=== PATIENT | male | born 1935 | race Caucasian/White ===

== ENCOUNTER → 2017-04-02 | Outpatient (CLI) | payer OTHER ==
[~2017-04-02] MED LIST: LEVO25TA PO; NATURAL SUPPLEMENT PO; NATURAL SUPPLEMENTS; PANT1TAB48 PO
[2017-04-02 13:02] LABS: BASO % 0.7 %; BASO ABS # 0.06 K/uL (0-0.2); COMPLETE YES; EOS % 1.7 %; HEMATOCRIT 41.9 % (42-52); LYMPH % 22.1 %; LYMPH ABS # 1.99 K/uL (1.2-3.4); MEAN CORPUSCULAR HEMOGLOBIN 27.6 pg (25-34); MEAN CORPUSCULAR HGB CONC 32.5 g/dl (32-36); MEAN PLATELET VOLUME 8.3 fL (7.4-10.4); MONO % 12.5 %; PLATELET COUNT 417 K/uL (130-400); RED BLOOD COUNT 4.93 M/uL (4.7-6.1); WHITE BLOOD COUNT 9.02 K/uL (4.8-10.8)
[2017-04-02 13:19] LABS: URINE APPEARANCE CLEAR (CLEAR); URINE BILIRUBIN NEG (NEG); URINE COLOR DK YELLOW; URINE EPITHELIAL CELL AUTO 0-5 /lpf (0-5); URINE NITRITE NEG (NEG); URINE PH 5.5 (4.5-7.5); UROBILINOGEN NEG (NEG); ZZUR CULT IF INDIC CLEAN CATCH NO
[2017-04-02 13:20] LABS: MANUAL MICROSCOPIC REQUIRED? NO; REVIEW REQ? NO
[2017-04-02 14:14] LABS: BLOOD UREA NITROGEN 11 mg/dl (7-18); BUN/CREATININE RATIO 11.6 (10-20); CALCIUM 8.5 mg/dl (8.5-10.1); CARBON DIOXIDE 29 mmol/L (21-32); CHLORIDE 103 mmol/L (98-107); CREATININE 0.99 mg/dl (0.60-1.40); GLUCOSE 114 mg/dl (70-99); POTASSIUM 4.1 mmol/L (3.5-5.1); SODIUM 138 mmol/L (136-145)
[2017-04-02 14:23] LABS: PHOSPHORUS 2.7 mg/dl (2.5-4.9)
== END | disposition home or self-care (01) ==
LOC: C.LABMFLN 10:46
PROVIDERS: ATTEND Family Medicine
DX: K62.5 Hemorrhage of anus and rectum (principal); E03.9 Hypothyroidism, unspecified

== ENCOUNTER → 2017-04-04 | Outpatient (CLI) | payer OTHER ==
[2017-04-04 11:17] LABS: CHOLESTEROL/HDL RATIO 2.3
== END | disposition home or self-care (01) ==
LOC: C.LAB 09:55
PROVIDERS: ATTEND Internal Medicine Cardiovascular Disease
DX: E78.00 Pure hypercholesterolemia, unspecified (principal)

== ENCOUNTER → 2017-04-06 | Day surgery (SDC) | payer OTHER ==
[2017-04-02 13:51] VITALS: Ht 176.5 cm; Wt 75.0 kg
[~2017-04-06] VITALS: Ht 176.5 cm; Wt 75.0 kg
[~2017-04-06] MED LIST changes: +ATROPINE SULFATE 0.1 MG/ML 5ML SYR IV PRN; +EpHEDrine SULFATE INJ 50 MG/ML AMP IV PRN; +LIDOCAINE HCL 2% 2 ML VIAL (20MG/ML) ONE; -NATURAL SUPPLEMENTS; +PHENYLEPHRINE HCL INJ 10 MG/ML VIAL ONE; +PROPOFOL IV EMULSION 10 MG/ML 20 ML VIAL IV ONE
[2017-04-06 11:57] VITALS: TEMP 37.2
--- NOTE | 2017-04-06 12:30 | Endo History and Physical ---
History & Physical Date of Service: Apr 06, 2017. Chief Complaint: Rectal Bleeding Referring Physician: JULIO C ALAS History of Present Illness 81 yo CM who presents for colonoscopy secondary to rectal bleeding. Past Medical History Osteoporosis, Arthritis, Gastrointestinal Disorder, Reflux, Cancer, High Cholesterol, Syncopal Episodes, Thyroid Disease Past Surgical History Hx Cardiac Surgery: Yes (CARDIAC ABLATION) Hx Internal Defibrillator: No Hx Pacemaker: No Hx Abdominal Surgery: Yes (LATRICE) Hx of Implantable Prosthesis: No Hx Post-Op Nausea and Vomiting: No Hx Cancer Surgery: Yes (SKIN EXCISION-SEE ABOVE) Hx Thoracic Surgery: No Hx Orthopedic: No Hx Urinary Tract Surgery: No Family History None Social History Smoking Status: Former Smoker Hx Substance Use: No Hx Alcohol Use: No Allergies Coded Allergies: No Known Allergies (Unverified , 04/06/17) Current Medications Reported Home Medications Medications Dose Route/Sig Max Daily Dose Days Date Category [Natural Supplement] 1 Dose PO QAM 04/02/17 Reported Protonix (Pantoprazole) 40 Mg Tab 40 Mg PO BIDM 01/01/15 Reported Synthroid (Levothyroxine Sodium) 25 Mcg Tab 25 Mcg PO QAM 01/01/15 Reported Vital Signs Weight (Kilograms): 75 Height (Feet): 5 Height (Inches): 9.5 Date Time Temp Pulse Resp B/P (MAP) Pulse Ox O2 Delivery O2 Flow Rate FiO2 04/06/17 11:57 37.2 109 20 139/79 (99) 97 Room Air Physical Exam General Appearance: WD/WN, no apparent distress Respiratory/Chest: Auscultation: breath sounds normal Cardiovascular: Heart Auscultation: RRR Abdomen: Bowel Sounds: normal Inspection & Palpation: soft, non-distended, no tenderness, guarding & rebound Assessment and Plan Assessment: 81 yo CM who presents for colonoscopy secondary to rectal bleeding. Plan: Proceed with colonoscopy.
--- NOTE | 2017-04-06 13:03 | GI REPORT ---
Procedure Date: 04/06/2017 12:46 PM Procedure: Colonoscopy Indications: Rectal bleeding Medicines: Monitored Anesthesia Care Complications: No immediate complications. Estimated Blood Loss: Estimated blood loss: none. Procedure: Pre-Anesthesia Assessment: - Prior to the procedure, a History and Physical was performed, and patient medications and allergies were reviewed. The patient's tolerance of previous anesthesia was also reviewed. The risks and benefits of the procedure and the sedation options and risks were discussed with the patient. All questions were answered, and informed consent was obtained. Prior Anticoagulants: The patient has taken no previous anticoagulant or antiplatelet agents. ASA Grade Assessment: III - A patient with severe systemic disease. After reviewing the risks and benefits, the patient was deemed in satisfactory condition to undergo the procedure. After I obtained informed consent, the scope was passed under direct vision. Throughout the procedure, the patient's blood pressure, pulse, and oxygen saturations were monitored continuously. The scope was introduced through the anus and advanced to the terminal ileum. The colonoscopy was performed without difficulty. The patient tolerated the procedure well. The quality of the bowel preparation was good. The terminal ileum, ileocecal valve, appendiceal orifice, and rectum were photographed. Findings: Multiple small-mouthed diverticula were found in the sigmoid colon. Non-bleeding internal hemorrhoids were found during retroflexion. The hemorrhoids were small. Impression: - Diverticulosis in the sigmoid colon. - Non-bleeding internal hemorrhoids. - No specimens collected. Recommendation: - Resume previous diet. - Continue present medications. - No repeat colonoscopy due to age and the absence of advanced adenomas. - Return to primary care physician as previously scheduled. Félix Guaman, 04/06/2017 1:03:07 PM This report has been signed electronically. Note Initiated On: 04/06/2017 12:46 PM I attest to the content of the Intraoperative Record and orders documented therein, exceptions below
--- NOTE | 2017-04-06 13:08 | Discharge Instructions ---
Endoscopy Patient Instructions Date / Procedure(s) Performed Apr 06, 2017. Colonoscopy Allergy Information Coded Allergies: No Known Allergies (Unverified , 04/06/17) Discharge Date / Findings Apr 06, 2017. Diverticulosis Internal hemorrhoids Medication Instructions OK to resume all medications today as prescribed Reported Home Medications Medications Dose Route/Sig Max Daily Dose Days Date Category [Natural Supplement] 1 Dose PO QAM 04/02/17 Reported Protonix (Pantoprazole) 40 Mg Tab 40 Mg PO BIDM 01/01/15 Reported Synthroid (Levothyroxine Sodium) 25 Mcg Tab 25 Mcg PO QAM 01/01/15 Reported Provider Instructions Activity Restrictions - No exercising or heavy lifting for 24 hours. - Do not drink alcohol the day of the procedure. - Do not drive a car or operate machinery until the day after the procedure. - Do not make any important decisions or sign important papers in 24 hours after the procedure. Following Day: - Return to full activity which may include returning to work/school. Diet Start your diet with liquids and light foods (jello, soup, juice, toast). Then eat your usual diet if not nauseated. Treatment For Common After Affects For mild abdominal pain, bloating, or excessive gas: - Rest - Eat lightly - Lie on right side Follow-Up Information Follow-up with JULIO C ALAS as scheduled Anesthesia Information What You Should Know You have had a procedure that required some medicine to reduce anxiety and discomfort. This treatment is called moderate sedation. After receiving the treatment, you may be sleepy, but you will be able to breathe on your own. The effects of the treatment may last for several hours. Follow these instructions along with Activity/Diet recommendations noted above: * Do NOT do anything where dizziness or clumsiness would be dangerous. * Rest quietly at home today, then you can be up and about tomorrow. * Have a responsible person stay with you the rest of today. * You may have had an I.V. today. If so, you may take the dressing off later today. Recommendations Call your doctor if: * Trouble breathing * Continuous vomiting for more than 24 hours * Temperature above 101 degrees * Severe abdominal pain or bloating * Pain not relieved by pain medicine ordered * There is increased drainage or redness from any incision * A large amount of rectal bleeding greater than 2-3 tablespoons. (If you had a polyp/s removed or have hemorrhoids, a small amount of blood - from the rectum is to be expected.) * You have any unanswered questions or concerns. IN THE EVENT OF A SERIOUS EMERGENCY, GO TO THE NEAREST EMERGENCY ROOM Your discharge instructions were prepared by provider Félix Guaman. Patient Instructions Signature Page Abraham Cool Patient (or Guardian) Signature/Date: I have read and understand the instructions given to me by my caregivers. Caregiver/RN/Doctor Signature/Date: The above-named patient and/or guardian has received patient instructions on this date. + Original Patient Signature Page (only) stays with chart. Please make copy for patient.
--- NOTE | 2017-04-06 13:15 | Anesthesiology Progress Note ---
Anesthesia Post Op Note Date & Time Apr 06, 2017 at 13:15 Vital Signs Pain Intensity: 0 Vital Signs Past 12 Hours Date Time Temp Pulse Resp B/P (MAP) Pulse Ox O2 Delivery O2 Flow Rate FiO2 04/06/17 13:04 80 20 90/60 (70) 96 Room Air 04/06/17 11:57 37.2 109 20 139/79 (99) 97 Room Air Notes Mental Status: alert / awake / arousable, participated in evaluation Pt Amnestic to Procedure: Yes Nausea / Vomiting: adequately controlled Pain: adequately controlled Airway Patency, RR, SpO2: stable & adequate BP & HR: stable & adequate Hydration State: stable & adequate Anesthetic Complications: no major complications apparent
[2017-04-06 13:49] VITALS: BP 109/71; PULSE 84; O2SAT 97
== END | disposition home or self-care (01) ==
LOC: C.GI 11:38
PROVIDERS: ATTEND Internal Medicine
DX: K62.5 Hemorrhage of anus and rectum (principal); K57.30 Diverticulosis of large intestine without perforation or abscess without bleeding; K64.8 Other hemorrhoids; E78.00 Pure hypercholesterolemia, unspecified; K21.9 Gastro-esophageal reflux disease without esophagitis; E07.9 Disorder of thyroid, unspecified; M81.0 Age-related osteoporosis without current pathological fracture; Z87.891 Personal history of nicotine dependence; Z79.899 Other long term (current) drug therapy

== ENCOUNTER → 2017-10-06 | Outpatient (CLI) | payer OTHER ==
[~2017-10-06] MED LIST changes: -ATROPINE SULFATE 0.1 MG/ML 5ML SYR IV PRN; -EpHEDrine SULFATE INJ 50 MG/ML AMP IV PRN; -LIDOCAINE HCL 2% 2 ML VIAL (20MG/ML) ONE; +PANT1TAB3 PO; -PANT1TAB48 PO; -PHENYLEPHRINE HCL INJ 10 MG/ML VIAL ONE; -PROPOFOL IV EMULSION 10 MG/ML 20 ML VIAL IV ONE
[2017-10-06 18:27] LABS: BASO % 0.7 %; BASO ABS # 0.06 K/uL (0-0.2); COMPLETE YES; EOS % 1.7 %; HEMATOCRIT 44.4 % (42-52); IG% 0.9 %; LYMPH % 24.2 %; LYMPH ABS # 2.09 K/uL (1.2-3.4); MEAN CELL VOLUME 84.1 fL (80-100); MEAN CORPUSCULAR HEMOGLOBIN 28.2 pg (25-34); MEAN CORPUSCULAR HGB CONC 33.6 g/dl (32-36); MEAN PLATELET VOLUME 8.9 fL (7.4-10.4); MONO % 10.6 %; NEUT % 61.9 %; PLATELET COUNT 338 K/uL (130-400); RED BLOOD COUNT 5.28 M/uL (4.7-6.1); WHITE BLOOD COUNT 8.62 K/uL (4.8-10.8)
[2017-10-06 18:35] LABS: ALT/SGPT 19 U/L (12-78); AST/SGOT 19 U/L (15-37); BLOOD UREA NITROGEN 12 mg/dl (7-18); BUN/CREATININE RATIO 10.2 (10-20); CARBON DIOXIDE 27 mmol/L (21-32); CHLORIDE 103 mmol/L (98-107); CREATININE 1.17 mg/dl (0.60-1.40); GLUCOSE 90 mg/dl (70-99); POTASSIUM 4.1 mmol/L (3.5-5.1); SODIUM 136 mmol/L (136-145)
[2017-10-06 18:37] LABS: ALB/GLOB RATIO 0.7 (0.9-2); ALKALINE PHOSPHATASE 159 U/L (45-117)
== END | disposition home or self-care (01) ==
LOC: C.LABMFLN 13:24
PROVIDERS: ATTEND Family Medicine
DX: K21.9 Gastro-esophageal reflux disease without esophagitis (principal); M81.0 Age-related osteoporosis without current pathological fracture

== ENCOUNTER → 2017-10-09 | Day surgery (SDC) | payer OTHER ==
[~2017-10-09] VITALS: Ht 176.5 cm; Wt 73.2 kg
[~2017-10-09] MED LIST changes: +ACETAMINOPHEN 500 MG TAB PO ONE; +ACETAMINOPHEN 500 MG TAB PO SCH; +CHOL2000 PO; +SODIUM CHLORIDE 0.9% IV ONE; +ZOLEDRONIC ACID IV ONE
[2017-10-09 09:20] VITALS: BP 161/77; PULSE 94; TEMP 36.7; O2SAT 100
[2017-10-09 09:23] VITALS: Ht 176.5 cm; Wt 73.2 kg
--- NOTE | 2017-10-09 09:29 | NUR ---
PT STATES HE WAS NOT TOLD TO DRINK 16 OZ PRIOR TO ARRIVAL, ALTHOUGH HE STATES HE DID DRINK CLOSE TO THIS AMOUNT. BOTTLE OF WATER GIVEN TO PT AT THE TIME HE WAS GIVEN HIS TYLENOL PRETREATMENT. CALL [facility] WITHIN REACH.
== END | disposition home or self-care (01) ==
LOC: C.MTU 08:55
PROVIDERS: ATTEND Family Medicine
DX: M81.0 Age-related osteoporosis without current pathological fracture (principal)

== ENCOUNTER 2024-11-18 08:36 | Observation (INO) ==
--- NOTE | 2024-11-18 08:58 | Emergency Department Note ---
Impression & Plan LIOR (acute kidney injury), Bladder stone, Hydronephrosis, right ED Provider Note Name: ASHANTI SEQUEIRA Age: 89 Sex: Male Arrives Via: Walk-In Informant: Patient, ED Provider: Dion Herbert MD Chief Complaint: Kidney stone Impression: As per impressions above Medical Decision Making: Pleasant 89-year-old gentleman who reportedly has been having difficulty with urination the last few weeks and some noted fatigue. On examination patient looks well mildly dehydrated but otherwise in minimal distress. He had an ultrasound yesterday which showed a UVJ stone versus nearby bladder stone. CT was obtained which shows stone appears to be in the bladder right next to the UVJ. There is some mild right hydro. Reviewing previous imaging reports he did have a stone in the dependent bladder several years ago which was 5 mm at that point. Patient is in no distress breathing comfortably and otherwise looks well thus I think it is unlikely that the stone is acutely obstructing kidney however he does have a bump in his creatinine. I touched base with urology who did evaluate the patient and they agree this is unlikely truly obstructing the kidney at this point though in the setting with new onset LIOR we will plan to bring in for some hydration monitor overnight and recheck kidney function in the morning patient and are comfortable with this plan. Of note urinalysis does not show any clear evidence of infection. Triage/Nursing Notes reviewed by Me External Chart Review by me: Reviewed PCP note from 11/15/2024 discussing planned workup at that time Differential:Infection, dehydration, metabolic abnormality, hypo/hyperglycemia, electrolyte disturbance, anemia, hypoxia, cardiac sources, intracerebral event, toxicologic, neurologic, as well as other pathologies. Vital Signs: reviewed and remarkable for no significant abnormalities Interventions: Normal saline bolus 500 mL IV Labs:ED labs Reviewed by me and remarkable for acute elevation in creatinine compared to 6 months ago Imaging:CT them pelvis without contrast as per my informal interpretation shows an 8 mm stone just within the bladder lumen next to the UVJ. No free air or bowel obstruction appreciated. Confirmed by radiologist Consults:Discussed with urologist who evaluated the patient and feel no intervention surgically is necessary at this time. Reviewed with hospitalist who will bring in for hydration and monitoring. Plan: Disposition:Hospitalization. Condition: Good History of Present Illness: 89-year-old gentleman arrives for evaluation of abnormal ultrasound. Patient had an abnormal UA as an outpatient thus an ultrasound was ordered. Ultrasound revealed a 1 cm distal right ureteral stone versus bladder stone. Patient admits he has been having difficulty with urinating stating his had a weak stream and at times malodorous urine. Denies any abdominal pain, flank pain, back pain. Denies any nausea, vomiting, fevers, chills, lightheadedness, weakness. He has not had any recent leg swelling. Patient denies any specific history of kidney stones. He does have a known history of BPH. Denies any falls, trauma, injuries. Patient was recently started on doxycycline for a right toe infection however had not yet started the doxycycline. Sent to ER by PCP for evaluation due to this abnormal ultrasound. Past Medical History:See Below Home Medications:See Below Allergies:See Below Vitals:Blood Pressure: 217/105, Pulse 78, RR 20, T 37.1C, O2 96% on RA Physical Exam: GENERAL: Patient is well appearing and in no acute distress. RESPIRATORY: No dyspnea. Clear to auscultation and equal bilaterally. CARDIOVASCULAR: Regular rate and rhythm.No murmur appreciated. GASTROINTESTINAL: Abdomen soft, non-tender, no peritonitis. BACK: No midline tenderness, no CVA tenderness EXTREMITIES: Normal motion all extremities, no cyanosis, no edema. NEUROLOGIC: Alert and oriented. No focal neurologic deficits appreciated PSYCH: Appropriate GCS: 15 ED Course: Times/Reassessments: Patient stable blood pressure trended down some and he is in no distress. Dion Herbert MD Past Med/Surg History Problem List (Updated 11/18/24 @ 16:55 by Dion Herbert MD) Hydronephrosis, right (Acute) Bladder stone (Acute) LIOR (acute kidney injury) (Acute) Bladder stone LIOR (acute kidney injury) Adenomatous colon polyp BPH with obstruction/lower urinary tract symptoms Basal cell carcinoma (BCC) (Acute) Rheumatoid arthritis (Acute) Vitamin D deficiency (Chronic) Supraventricular tachycardia (Chronic) Osteoporosis, senile (Chronic) Hypothyroidism (Chronic) Hypercholesterolemia (Chronic) Esophageal stricture (Chronic) Acid reflux disease (Chronic) Surgical History History of esophagogastroduodenoscopy (EGD) S/P cholecystectomy S/P colonoscopy History of esophagogastroduodenoscopy (EGD) 11/09/20 (Dr. Farhad Rojas [place] [facility] [place] S/P colonoscopy 08/15/2021 H/O cardiac radiofrequency ablation Family History Mother Cancer Father Cirrhosis Denies family history of Ovarian cancer Prostate cancer Myocardial infarction Breast cancer Colorectal cancer Social History Smoking Status: Never smoker Tobacco Type: Cigarettes Age Started Using Tobacco: 24; Age Quit Using Tobacco: 27; packs per day: 3; Second Hand Exposure: No; Do You Dip or Chew Tobacco: No; Hx Alcohol Use: No Hx Substance Use: No Preferred Language: Ghanaian Communication Ability: Effective Visual Impairment: No Limitations Hearing Ability: Normal Machine Brush Maker Required: No Beliefs That Will Affect Care: None marital status: Current Living Situation: Spouse current occupational status: 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 How many Children do You have: 1 Feels Safe at Home: Yes Childhood Exposure to Second-Hand Smoke: No Diet: regular caffeine: Yes during the past year weight has: remained stable Dental Care, Regularly: No Physical Activity Frequency: Does not Exercise Seatbelt Use: always Sunscreen Use: No Do you think of yourself as: straight/heterosexual Gender Identity: Male Assistive Devices: Walker Allergies Allergies Allergy/AdvReac Type Severity Reaction Status Date / Time No Known Allergies Allergy Verified 11/15/24 08:45 Home Meds Home Medications Medication Instructions Recorded Confirmed calcium 600 mg (as carbonate)-vit 2 tab PO DAILY 11/11/21 11/18/24 D3 20 mcg (800 unit) chewable tablet (Caltrate plus D) food supplemt, lactose-reduced 1 ea PO DAILY 03/27/22 11/18/24 0.05 gram-1.5 kcal/mL oral liquid (Ensure Plus) tofacitinib 11 mg tablet,extended 11 mg PO UD 04/08/23 11/18/24 release 24 hr (Xeljanz XR) Vitamin D3 1 tab PO DIRECTED 11/18/24 11/18/24 denosumab 60 mg/mL subcutaneous 60 mg subcut DIRECTED 11/18/24 11/18/24 syringe (Prolia) Previous Rx's Medication Instructions Recorded alfuzosin 10 mg tablet,extended 10 mg PO DAILY #90 tabs 04/13/24 release 24 hr (Uroxatral) pantoprazole 40 mg tablet,delayed 40 mg PO DAILY #90 tabs 06/14/24 release levothyroxine 50 mcg tablet 50 mcg PO DAILY #90 tabs 08/15/24 (Synthroid) metoprolol succinate 50 mg 50 mg PO DAILY #90 tabs 09/23/24 tablet,extended release 24 hr doxycycline hyclate 100 mg tablet 100 mg PO BID #14 tabs 11/15/24 Results & Data (ED) Vital Signs Vital Signs - 24 hr 11/18/24 08:37 11/18/24 08:41 11/18/24 10:03 Temperature 37.1 C Temperature Source Skin Pulse Rate 78 63 Pulse Rate [Right] 66 Pulse Rate from SpO2 Sensor 63 Respiratory Rate 14 20 15 Respiratory Effort / Characteristics Non-Labored Spontaneous Respiratory Depth Normal Normal Respiratory Pattern Regular Blood Pressure 217/105 H 166/89 H Blood Pressure [Right Arm] 174/82 H Blood Pressure Mean 142 114 Blood Pressure Mean [Right Arm] 112 Pulse Oximetry 98 96 96 Oxygen Delivery Method Room Air Room Air Sepsis Recent Fever Within 48 Hours No Sepsis New/Unexplained Change in Mental Status N/A Sepsis Action Taken by Nursing No Action Required 11/18/24 10:36 Temperature Temperature Source Pulse Rate 71 Pulse Rate [Right] Pulse Rate from SpO2 Sensor 71 Respiratory Rate 16 Respiratory Effort / Characteristics Respiratory Depth Respiratory Pattern Blood Pressure 188/104 H Blood Pressure [Right Arm] Blood Pressure Mean 132 Blood Pressure Mean [Right Arm] Pulse Oximetry 96 Oxygen Delivery Method Sepsis Recent Fever Within 48 Hours Sepsis New/Unexplained Change in Mental Status Sepsis Action Taken by Nursing Laboratory Data 11/18/24 Unknown 11/18/24 Unknown Lab Results 11/18/24 Range/Units 08:55 Urine Color Yellow Urine Appearance Clear (Clear) Urine pH 7.5 (4.5-7.5) Ur Specific Lowber 1.012 (1.000-1.030) Urine Protein Negative (Negative) Urine Glucose (UA) Negative (Negative) Urine Ketones Negative (Negative) Urine Blood 2+ H (Negative) Urine Nitrite Negative (Negative) Urine Bilirubin Negative (Negative) Urine Urobilinogen Negative (Negative) Ur Leukocyte Esterase 2+ H (Negative) Urine WBC (Auto) 11-20 H (0-5) /hpf Urine RBC (Auto) >20 H (0-2) /hpf U Hyaline Cast (Auto) 0-2 (0-2) /lpf U Epithel Cells (Auto) 0-2 (0-2) /hpf Urine Bacteria (Auto) None Seen (None Seen) Administered Medications Sodium Chloride (Nss) 1,000 mls @ 80 mls/hr IV .[id number] ROSY Stop: 11/19/24 12:14 Last Admin: 11/18/24 12:09 Dose: 80 mls/hr Documented By: CHELSEY Discontinued Medications Sodium Chloride (Nss) 500 mls @ 999 mls/hr IV .Q31M ONE Stop: 11/18/24 10:44 Last Infusion: 11/18/24 15:08 Dose: Infused Documented By: Admin: 11/18/24 10:17 Dose: 999 mls/hr Documented By: CHELSEY Metoprolol Succinate (Metoprolol Succ 50mg Ext Rel Tab) 50 mg PO NOW STA Stop: 11/18/24 11:08 Last Admin: 11/18/24 12:07 Dose: 50 mg Documented By: CHELSEY Tamsulosin HCl (Tamsulosin Hcl 0.4 Mg Cap) 0.4 mg PO NOW ONE Stop: 11/18/24 11:27 Last Admin: 11/18/24 12:07 Dose: 0.4 mg Documented By: CHELSEY Imaging Data Radiologist's Impression: Abdomen/Pelvis CT 11/18/24 08:[address] WITHOUT CONTRAST CT DOSE: 1580.65 mGy.cm HISTORY: rt ureteral vs bladder stone, decreased urinatitio TECHNIQUE: Multiaxial CT images of the abdomen and pelvis were performed without contrast. A dose lowering technique was utilized adhering to the principles of ALARA. COMPARISON STUDY: Ultrasound of 11/17/2024 FINDINGS: ABDOMEN: Gallbladder is surgically absent. Liver, spleen, pancreas, and adrenal glands have an unremarkable non-IV contrast appearance. No hydronephrosis or calculi on the left. There is mild hydronephrosis of the right kidney. There is a 8 mm calculus within the urinary bladder lumen adjacent to the right UVJ. No other calculi seen. There are scattered atherosclerotic calcifications. No abdominal aortic aneurysm. Pelvis: Prostate is prominently enlarged. Urinary bladder is mildly distended. There is sigmoid diverticulosis. No acute diverticulitis. No bowel inflammation or obstruction. No free fluid or free air. No enlarged adenopathy. Osseous structures: There is mild lumbar degenerative disc disease. There are mild degenerative changes at the hips. IMPRESSION: Mild right hydronephrosis likely caused by 8 mm calculus within the urinary bladder adjacent to the right UVJ. Otherwise as described. ACT 112: Negative or not required by law. The above report was generated using voice recognition software. It may contain grammatical, syntax or spelling errors. Electronically signed by: James Chavez M.D. 11/18/2024 9:43 AM Discharge Plan Visit Data Chief Complaint: Kidney Stone Stated Complaint: KIDNEY STONE ED Provider: Dion Herbert Discharge Problem: LIOR (acute kidney injury), Bladder stone, Hydronephrosis, right Patient Disposition: Admitted As Inpatient Discharge Instructions Interventions: ED Discharge Assessment Last Done: 11/18/24 13:48
[2024-11-18 09:39] LABS: Basophils # (auto) 0.05 K/uL (0.00-0.20); Basophils % (auto) 0.8 %; Eosinophils # (auto) 0.09 K/uL (0.00-0.50); Eosinophils % (auto) 1.4 %; Hemoglobin 13.5 g/dl (14.0-18.0); Immature Granulocytes # (auto) 0.13 K/uL (0.01-0.20); Lymphocytes % (auto) 17.1 %; Mean Corpuscular Hemoglobin 29.9 pg (25.0-34.0); Mean Corpuscular Hgb Conc 33.8 g/dL (32.0-36.0); Mean Corpuscular Volume 88.7 fL (80.0-100.0); Mean Platelet Volume 8.5 fL (9.4-12.4); Monocytes # (auto) 0.85 K/uL (0.11-0.59); Monocytes % (auto) 13.2 %; Neutrophils # (auto) 4.21 K/uL (1.40-6.50); Neutrophils % (auto) 65.5 %; Platelet Count 252 K/uL (130-400); RDW Coefficient of Variation 12.4 % (11.5-14.5); RDW Standard Deviation 40.4 fL (36.4-46.3); Red Blood Count 4.51 M/uL (4.70-6.10); White Blood Count 6.43 K/ul (4.8-10.8)
--- NOTE | 2024-11-18 09:44 | CT Scan Report ---
ABDOMEN AND PELVIS CT WITHOUT CONTRAST CT DOSE: 1580.65 mGy.cm HISTORY: rt ureteral vs bladder stone, decreased urinatitio TECHNIQUE: Multiaxial CT images of the abdomen and pelvis were performed without contrast. A dose lo wering technique was utilized adhering to the principles of ALARA. COMPARISON STUDY: Ultrasound of 11/17/2024 FINDINGS: ABDOMEN: Gallbladder is surgically absent. Liver, spleen, pancreas, and adrenal glands have an unrema rkable non-IV contrast appearance. No hydronephrosis or calculi on the left. There is mild hydronephr osis of the right kidney. There is a 8 mm calculus within the urinary bladder lumen adjacent to the r ight UVJ. No other calculi seen. There are scattered atherosclerotic calcifications. No abdominal aor tic aneurysm. Pelvis: Prostate is prominently enlarged. Urinary bladder is mildly distended. There is sigmoid diver ticulosis. No acute diverticulitis. No bowel inflammation or obstruction. No free fluid or free air. No enlarged adenopathy. Osseous structures: There is mild lumbar degenerative disc disease. There are mild degenerative dickson es at the hips. IMPRESSION: Mild right hydronephrosis likely caused by 8 mm calculus within the urinary bladder adjac ent to the right UVJ. Otherwise as described. ACT 112: Negative or not required by law. The above report was generated using voice recognition software. It may contain grammatical, syntax o r spelling errors. Electronically signed by: aJmes Chavez M.D. 11/18/2024 9:43 AM
[2024-11-18 09:48] LABS: Appearance Urine Clear (Clear); Bacteria Urine Automated None Seen (None Seen); Bilirubin Urine Negative (Negative); Blood Urine 2+ (Negative); Cast Urine Automated 0-2 /lpf (0-2); Color Urine Yellow; Epithelial Cell Urine Auto 0-2 /hpf (0-2); Glucose Urine UA Negative (Negative); Ketones Urine Negative (Negative); Leukocyte Esterase Urine 2+ (Negative); Nitrite Urine Negative (Negative); Protein Urine Negative (Negative); RBC Urine Automated >20 /hpf (0-2); Specific Gravity Urine 1.012 (1.000-1.030); Urobilinogen Urine Negative (Negative); pH Urine 7.5 (4.5-7.5)
[2024-11-18 09:50] LABS: BUN Creatinine Ratio 9.3 (10-20); Calcium 8.9 mg/dl (8.6-10.3); Creatinine Clr Calc Pharmacy 24.4 ml/min; Potassium 4.3 mmol/L (3.5-5.1)
[2024-11-18] MEDS: SODIUM CHLORIDE 0.9% 500 ML IV ONE (10:17)
--- NOTE | 2024-11-18 10:31 | History & Physical Report ---
Date of Service November 18, 2024 Assessment & Plan (1) LIOR (acute kidney injury): (2) Bladder stone: (3) Rheumatoid arthritis: Plan Abraham is an 89-year-old male with PMH of hypothyroidism, hypercholesteremia, rheumatoid arthritis, BPH, and acid reflux. He presented on 11/18 out of concern for kidney stones. He had imaging done yesterday and was referred to the ER for a potential "blocking" stone. Patient endorses difficulty with urination, malodorous urine, and mild burning when he begins to urinate. He denies prior history of UTIs or kidney stones. While he is not having any pain at this time, he does report that he developed pressure in his lower abdomen/suprapubic region while in the ED. #LIOR BUN 19, creatinine 2.05 (baseline around 1.3) Avoid nephrotoxic agents for possible Suspect secondary to post renal obstruction (bladder stone/BPH) Is possible at this time that the stone has already passed and is in the bladder Gentle fluid resuscitation with NSS at 80mL/hr x 2 L # Bladder stone A/P CT revealed mild right hydronephrosis with an 8 mm calculus within the urinary bladder adjacent to UVJ; ?Nonobstructive Possible but that this stone formed in the bladder, and LIOR could be secondary to prostate obstruction/BPH Urology consult appreciated Supportive care Urine strainer Patient is unsure if he has been taking his alfuzosin as prescribed Hold alfuzosin Tamsulosin p.o. QAM #Mild right-sided hydronephrosis Noted; treatment as above #Cellulitis Patient was recently prescribed doxycycline on 11/15 for presumed cellulitis on his left fourth toe On physical exam, the patient does have a mild callus on the dorsal aspect of his left toe, but this is not erythematous; mildly swollen; not warm to touch Patient reports that he has not started his course of doxycycline, and reports that the toe is improved significantly over the course of the week Will defer starting new antibiotic in the setting of LIOR at this time Chronic stable conditions: #Rheumatoid arthritispatient is currently on tofacitinib; okay to take if verified through pharmacy #HTNmetoprolol #GERDpantoprazole #Hypothyroidismlevothyroxine Disposition: Obs - Admit to Med[facility] Full code Regular diet VTE PPx: SCDs History of Present Illness Chief Complaint: Bladder stone Primary Care Provider: Margot Acevedo DO Abraham is an 89-year-old male with PMH of hypothyroidism, hypercholesteremia, rheumatoid arthritis, BPH, and acid reflux. He presented on 11/18 out of concern for kidney stones. He had imaging done yesterday and was referred to the ER for a potential "blocking" stone. Patient endorses difficulty with urination, malodorous urine, and mild burning when he begins to urinate. He denies prior history of UTIs or kidney stones. While he is not having any pain at this time, he does report that he developed pressure in his lower abdomen/suprapubic region while in the ED. Patient is unsure if he recently stopped his alfuzosin. He reports that he did not take his regular morning medicine today, and manages his own medicine at home. He also reports that he takes tofacitinib for his rheumatoid, and is concerned that it is not on formulary here; he reports he did bring in from home. Additionally, patient is currently on doxycycline for cellulitis. Patient has had obstruction due to his prostate in the past. Patient denies smoking, tobacco use, recent alcohol use. He does not ambulate with a cane or walker at baseline. Patient is hypertensive at 217/105 at time of admission; vitals otherwise stable. ED course: NSS 500 mL IV ROS: Patient endorses lightheadedness, lower abdominal pressure, difficulty urinating, malodorous urine, mild burning when he starts to pee, and orange urine. Patient denies fever, chills, night-sweats, ANNE, chest pain, SOB, cough, abdominal pain, flank pain bilaterally, N/V/D, urinary incontinence, and bright red blood in the urine. Allergies Allergy/AdvReac Type Severity Reaction Status Date / Time No Known Allergies Allergy Verified 11/15/24 08:45 Home Medications Medication Instructions Recorded Confirmed Type calcium 600 mg (as carbonate)-vit 2 tab PO DAILY 11/11/21 11/18/24 History D3 20 mcg (800 unit) chewable tablet (Caltrate plus D) food supplemt, lactose-reduced 1 ea PO DAILY 03/27/22 11/18/24 History 0.05 gram-1.5 kcal/mL oral liquid (Ensure Plus) tofacitinib 11 mg tablet,extended 11 mg PO UD 04/08/23 11/18/24 History release 24 hr (Xeljanz XR) alfuzosin 10 mg tablet,extended 10 mg PO DAILY #90 tabs 04/13/24 11/18/24 Rx release 24 hr (Uroxatral) pantoprazole 40 mg tablet,delayed 40 mg PO DAILY #90 tabs 06/14/24 11/18/24 Rx release levothyroxine 50 mcg tablet 50 mcg PO DAILY #90 tabs 08/15/24 11/18/24 Rx (Synthroid) metoprolol succinate 50 mg 50 mg PO DAILY #90 tabs 09/23/24 11/18/24 Rx tablet,extended release 24 hr doxycycline hyclate 100 mg tablet 100 mg PO BID #14 tabs 11/15/24 11/18/24 Rx Vitamin D3 1 tab PO DIRECTED 11/18/24 11/18/24 History denosumab 60 mg/mL subcutaneous 60 mg subcut DIRECTED 11/18/24 11/18/24 History syringe (Prolia) Past Med/Surg History Problem List (Updated 11/18/24 @ 11:24 by Raymond Eisenberg PA-C) Bladder stone LIOR (acute kidney injury) Adenomatous colon polyp BPH with obstruction/lower urinary tract symptoms Basal cell carcinoma (BCC) (Acute) Rheumatoid arthritis (Acute) Vitamin D deficiency (Chronic) Supraventricular tachycardia (Chronic) Osteoporosis, senile (Chronic) Hypothyroidism (Chronic) Hypercholesterolemia (Chronic) Esophageal stricture (Chronic) Acid reflux disease (Chronic) Surgical History History of esophagogastroduodenoscopy (EGD) S/P cholecystectomy S/P colonoscopy History of esophagogastroduodenoscopy (EGD) S/P colonoscopy H/O cardiac radiofrequency ablation Family History Mother Cancer Father Cirrhosis Denies family history of Ovarian cancer Prostate cancer Myocardial infarction Breast cancer Colorectal cancer Social History (Updated 05/02/24 @ 09:29 by Aurelia Olvera LPN) Smoking Status: Former smoker Tobacco Type: Cigarettes Age Started Using Tobacco: 24; Age Quit Using Tobacco: 27; packs per day: 3; Second Hand Exposure: No; Do You Dip or Chew Tobacco: No; Hx Alcohol Use: No Hx Substance Use: No Preferred Language: Mongolian Visual Impairment: No Limitations Hearing Ability: Normal Beliefs That Will Affect Care: None marital status: Current Living Situation: Spouse current occupational status: 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 How many Children do You have: 1 Feels Safe at Home: Yes Childhood Exposure to Second-Hand Smoke: No Diet: regular caffeine: Yes during the past year weight has: remained stable Dental Care, Regularly: No Physical Activity Frequency: Does not Exercise Seatbelt Use: always Sunscreen Use: No Do you think of yourself as: straight/heterosexual Gender Identity: Male Assistive Devices: Cane, Denture - Upper, Denture - Lower, Glasses and Walker Review of Systems Review of Systems: See HPI above Physical Exam Physical Exam: General: no acute distress; pleasant affect; anxious; at bedside; non-toxic appearing; frail appearing; cooperative; SpO2 93% on RA HEENT: normocephalic, atraumatic; no scleral icterus; PERRLA; vision and hearing grossly intact Neck: supple; no lymphadenopathy; trachea midline Skin: warm, dry without signs of tenting; no cyanosis; no rashes, bruising, lesions, or erythema noted CV: chest wall NTP; RRR; S1/S2 normal; no murmurs/rubs/gallops; pulses intact and symmetric at radial, DP, and PT Lungs: no acute respiratory distress; symmetrical chest wall expansion; clear breath sounds across all lung nathan w/o adventitious sounds; no wheezing ABD: Soft, NTP; negative suprapubic tenderness; BS present; no rebound/guarding; no distention MSK: no tics or fasciculations; no edema noted in the LEs b/l, nonerythematous Left foot: Mild callus noted on the dorsal aspect of the left fourth toe; non- erythematous; mildly swollen; not warm to touch Neuro: A&Ox3; normal mood and affect; fluent speech; no focal deficits appreciated; sensation intact and symmetric in lower EXTR bilaterally Results & Data Results & Data Vital Signs (Past 12 Hours) Vital Signs Temp Pulse Pulse Resp BP BP Pulse Ox 11/18/24 08:41 37.1 C 78 20 217/105 H 96 11/18/24 08:37 66 14 174/82 H 98 O2 Del Method 11/18/24 08:41 Room Air 11/18/24 08:37 Room Air Laboratory Results Abnormal lab results 11/18/24 11/18/24 Range/Units 08:55 Unknown RBC 4.51 L (4.70-6.10) M/uL Hgb 13.5 L (14.0-18.0) g/dl Hct 40.0 L (42.0-52.0) % MPV 8.5 L (9.4-12.4) fL Lymph # (Auto) 1.10 L (1.20-3.40) K/uL [place] # (Auto) 0.85 H (0.11-0.59) K/uL Sodium 135 L (136-145) mmol/L Creatinine 2.05 H (0.6-1.4) mg/dl BUN/Creatinine Ratio 9.3 L (10-20) Urine Blood 2+ H (Negative) Ur Leukocyte Esterase 2+ H (Negative) Urine WBC (Auto) 11-20 H (0-5) /hpf Urine RBC (Auto) >20 H (0-2) /hpf Diagnostic Findings Abdomen/Pelvis CT 11/18/24 08:[address] WITHOUT CONTRAST CT DOSE: 1580.65 mGy.cm HISTORY: rt ureteral vs bladder stone, decreased urinatitio TECHNIQUE: Multiaxial CT images of the abdomen and pelvis were performed without contrast. A dose lowering technique was utilized adhering to the principles of ALARA. COMPARISON STUDY: Ultrasound of 11/17/2024 FINDINGS: ABDOMEN: Gallbladder is surgically absent. Liver, spleen, pancreas, and adrenal glands have an unremarkable non-IV contrast appearance. No hydronephrosis or calculi on the left. There is mild hydronephrosis of the right kidney. There is a 8 mm calculus within the urinary bladder lumen adjacent to the right UVJ. No other calculi seen. There are scattered atherosclerotic calcifications. No abdominal aortic aneurysm. Pelvis: Prostate is prominently enlarged. Urinary bladder is mildly distended. There is sigmoid diverticulosis. No acute diverticulitis. No bowel inflammation or obstruction. No free fluid or free air. No enlarged adenopathy. Osseous structures: There is mild lumbar degenerative disc disease. There are mild degenerative changes at the hips. IMPRESSION: Mild right hydronephrosis likely caused by 8 mm calculus within the urinary bladder adjacent to the right UVJ. Otherwise as described. ACT 112: Negative or not required by law. The above report was generated using voice recognition software. It may contain grammatical, syntax or spelling errors. Electronically signed by: James Chavez M.D. 11/18/2024 9:43 AM Code Status & VTE Plan Code Status Full code VTE Prophylaxis Plan VTE Prophylaxis will be ordered: Yes Supervising Physician Co-Signing Physician Notes Patient seen and examined, chart reviewed, case discussed with Raymond Eisenberg PA-C and I agree with the assessment and plan as above except as otherwise noted Labs and images reviewed "Willy "is an 89-year-old male who presents to the ER with difficulty voiding and an LIOR with baseline creatinine approximately 1.3, and creatinine recently holding at a approximately 2.092.13. Creatinine on admission 2.05. CTA/P shows right mild hydronephrosis with? 8 mm calculus at UVJ. Patient is recommended for treatment of possible obstructive LIOR with urology consult. Urology has been consulted. ?whether stone has already passed into the bladder. Recommended following clinically with repeat labs for now. Endorses dysuria, UA is not infected appearing. Agree with fluids as noted. Agree with management as noted above. PG Care Time/CCT Total # of Minutes Spent Total Time Spent with Patient: Total time spent is greater than 50% in coordination of care (as documented) at patient's floor/unit and/or counseling patient: Coding [place] [address] INT INP/OBS CARE 2/55MIN Patient Type Established Medical Decision Making Moderate Complexity Diagnoses LIOR (acute kidney injury) N17.9 Bladder stone N21.0 Rheumatoid arthritis M06.9
--- NOTE | 2024-11-18 11:37 | Urology Consultation ---
Date of Consultation November 18, 2024 Assessment & Plan (1) BPH with obstruction/lower urinary tract symptoms: (2) LIOR (acute kidney injury): (3) Bladder stone: 89-year-old male presenting for further evaluation of abnormal renal ultrasound as outpatient admitted for LIOR. Patient afebrile Labs reviewedcreatinine 2.05 (1.28 in April 2024), no leukocytosis Urinalysis on arrival is not suggestive of infection Urine culture is pendingfollow culture CT imaging reviewed personally and with Dr. Coates8 mm stone appears to be within the bladder next to the UVJ, mild right hydronephrosis, enlarged prostate noted No acute intervention needed at this time Suspect right hydronephrosis may be secondary to bladder outlet obstruction Continue with alpha-jody Monitor bladder emptying with checking post void residual/prn bladder scan Recommend placement of Amaya catheter if patient is unable to void or evidence of elevated post void residual Continue hydration, trend labs and medical management per hospital medicine service Will arrange outpatient follow-up with our service for ongoing management History of Present Illness History of Present Illness This is an 89-year-old male with past medical history including hypothyroidism, hyperlipidemia, RA, and BPH with LUTS who presented to the emergency department on 11/18/24 for evaluation of abnormal renal ultrasound. Patient had an abnormal UA and creatinine as an outpatient and renal ultrasound was performed on 11/17/2024. KENNY showed mild right-sided hydronephrosis, a 1 cm calculus noted within the dependent urinary bladder versus UVJ, and prostatomegaly. He was referred to the emergency department by his PCP for further evaluation of abnormal ultrasound. On arrival to ED, he was afebrile and hypertensive. Lab work showed creatinine of 2.05, WBC 6.3, hemoglobin 13.5. Urinalysis showed 2+ blood, 2+ LE, 11-20 WBC, >20 RBC, otherwise unremarkable. Workup in ED included CT abdomen pelvis without contrast. CT independently reviewed and showed mild right hydronephrosis, 8 mm calculus appears to be within the urinary bladder adjacent to the right UVJ, prostatomegaly. He is admitted to the hospital medicine service for LIOR. Urology is consulted for LIOR, 8mm stone in bladder, mild hydronephrosis. Patient follows with urology as outpatient for BPH with lower urinary tract symptoms. Per last urology note, he was having difficulty swallowing harris sulosin, so was switched to alfuzosin. Patient seen and examined in the emergency department. in room. He is awake and resting in bed. He reports he had abnormal UA and lab work and underwent further workup with his PCP. He notes stream has been intermittently slow and some difficulty voiding. No dysuria or hematuria. Denies constipation. He thinks he is still taking alfuzosin. Denies flank or abdominal pain. Currently reports some urinary urgency and bladder pressure. Allergies Allergy/AdvReac Type Severity Reaction Status Date / Time No Known Allergies Allergy Verified 11/15/24 08:45 Home Medications Medication Instructions Recorded Confirmed Type calcium 600 mg (as carbonate)-vit 2 tab PO DAILY 11/11/21 11/18/24 History D3 20 mcg (800 unit) chewable tablet (Caltrate plus D) food supplemt, lactose-reduced 1 ea PO DAILY 03/27/22 11/18/24 History 0.05 gram-1.5 kcal/mL oral liquid (Ensure Plus) tofacitinib 11 mg tablet,extended 11 mg PO UD 04/08/23 11/18/24 History release 24 hr (Xeljanz XR) alfuzosin 10 mg tablet,extended 10 mg PO DAILY #90 tabs 04/13/24 11/18/24 Rx release 24 hr (Uroxatral) pantoprazole 40 mg tablet,delayed 40 mg PO DAILY #90 tabs 06/14/24 11/18/24 Rx release levothyroxine 50 mcg tablet 50 mcg PO DAILY #90 tabs 08/15/24 11/18/24 Rx (Synthroid) metoprolol succinate 50 mg 50 mg PO DAILY #90 tabs 09/23/24 11/18/24 Rx tablet,extended release 24 hr doxycycline hyclate 100 mg tablet 100 mg PO BID #14 tabs 11/15/24 11/18/24 Rx Vitamin D3 1 tab PO DIRECTED 11/18/24 11/18/24 History denosumab 60 mg/mL subcutaneous 60 mg subcut DIRECTED 11/18/24 11/18/24 History syringe (Prolia) Patient History Surgical History History of esophagogastroduodenoscopy (EGD) S/P cholecystectomy S/P colonoscopy History of esophagogastroduodenoscopy (EGD) 11/09/20 (Dr. Farhad Rojas at [facility]) S/P colonoscopy 08/15/2021 H/O cardiac radiofrequency ablation Family History Mother Cancer Father Cirrhosis Denies family history of Ovarian cancer Prostate cancer Myocardial infarction Breast cancer Colorectal cancer Social History Smoking Status: Former smoker Tobacco Type: Cigarettes Age Started Using Tobacco: 24; Age Quit Using Tobacco: 27; packs per day: 3; Second Hand Exposure: No; Do You Dip or Chew Tobacco: No; Hx Alcohol Use: No Hx Substance Use: No Preferred Language: Bruneian Visual Impairment: No Limitations Hearing Ability: Normal Beliefs That Will Affect Care: None marital status: Current Living Situation: Spouse current occupational status: 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 How many Children do You have: 1 Feels Safe at Home: Yes Childhood Exposure to Second-Hand Smoke: No Diet: regular caffeine: Yes during the past year weight has: remained stable Dental Care, Regularly: No Physical Activity Frequency: Does not Exercise Seatbelt Use: always Sunscreen Use: No Do you think of yourself as: straight/heterosexual Gender Identity: Male Assistive Devices: Cane, Denture - Upper, Denture - Lower, Glasses and Walker Review of Systems Review of Systems: All systems reviewed & are unremarkable except as noted in HPI & below Physical Exam Constitutional: well developed and well nourished; no acute distress Respiratory: normal respiratory effort; no respiratory distress and no labored breathing Gastrointestinal (Abdomen): Percussion/Palpation: abdomen soft; abdomen nontender Musculoskeletal: Head/Neck/Chest: normocephalic Neurologic: moves all extremities and awake Psychiatric: Orientation: alert and oriented x 3 Results & Data Vital Signs (Past 12 Hours) Vital Signs Temp Pulse Pulse Resp BP BP Pulse Ox 11/18/24 10:36 71 16 188/104 H 96 11/18/24 10:03 63 15 166/89 H 96 11/18/24 08:41 37.1 C 78 20 217/105 H 96 11/18/24 08:37 66 14 174/82 H 98 O2 Del Method 11/18/24 10:36 11/18/24 10:03 11/18/24 08:41 Room Air 11/18/24 08:37 Room Air PG Care Time/CCT Total # of Minutes Spent Total Time Spent with Patient: Total time spent is greater than 50% in coordination of care (as documented) at patient's floor/unit and/or counseling patient: Coding Level of Care Code 39309 INT INP/OBS CARE 2/55MIN Diagnoses BPH with obstruction/lower urinary tract symptoms N40.1; N13.8 LIOR (acute kidney injury) N17.9 Bladder stone N21.0
[2024-11-18] MEDS: TAMSULOSIN HCL 0.4 MG CAP PO ONE (12:07)
[2024-11-18] MEDS: METOPROLOL SUCC 50MG EXT REL TAB PO STA (12:07)
[2024-11-18] MEDS: SODIUM CHLORIDE 0.9% 1,000 ML IV SCH (12:09)
[2024-11-18] MEDS ORDERED: ACETAMINOPHEN 325 MG TAB PO PRN (13:48)
[2024-11-18] MEDS ORDERED: MELATONIN 3 MG TAB PO PRN (13:48)
[2024-11-18] MEDS ORDERED: TAMSULOSIN HCL 0.4 MG CAP PO SCH (21:00)
[2024-11-19] MEDS: LEVOTHYROXINE SODIUM 50 MCG TABLET PO SCH (05:16)
--- NOTE | 2024-11-19 07:21 | Electrocardiogram Report ---
Test Reason : Blood Pressure : */* mmHG Vent. 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 rate has decreased by 49 bpm Confirmed by Onur Montero ([id number]) on 11/19/2024 7:21:19 AM Referred By: REFERRED SELF Confirmed By: Onur Montero
[2024-11-19 07:33] LABS: BUN Creatinine Ratio 10.6 (10-20); Calcium 8.2 mg/dl (8.6-10.3); Creatinine Clr Calc Pharmacy 27.8 ml/min; Potassium 4.2 mmol/L (3.5-5.1)
[2024-11-19] MEDS: TAMSULOSIN HCL 0.4 MG CAP PO SCH (08:05)
[2024-11-19] MEDS: METOPROLOL SUCC 50MG EXT REL TAB PO SCH (08:05)
[2024-11-19] MEDS: PANTOprazole 40 MG TAB PO SCH (08:05)
[2024-11-19] MEDS ORDERED: NON-FORMULARY MEDICATION PO SCH (09:00)
[2024-11-19 20:06] VITALS: RESP 18
[2024-11-20 07:35] VITALS: BP 165/89; PULSE 66; TEMP 97.9; O2SAT 98
[2024-11-20 10:21] LABS: BUN Creatinine Ratio 10.8 (10-20); Calcium 8.4 mg/dl (8.6-10.3); Potassium 3.9 mmol/L (3.5-5.1)
[2024-11-20 11:24] LABS: Appearance Urine Clear (Clear); Bacteria Urine Automated None Seen (None Seen); Bilirubin Urine Negative (Negative); Blood Urine Trace (Negative); Cast Urine Automated 0-2 /lpf (0-2); Color Urine Yellow; Epithelial Cell Urine Auto 0-2 /hpf (0-2); Glucose Urine UA Negative (Negative); Ketones Urine Negative (Negative); Leukocyte Esterase Urine 1+ (Negative); Nitrite Urine Negative (Negative); Protein Urine Negative (Negative); Specific Gravity Urine 1.007 (1.000-1.030); Urobilinogen Urine Negative (Negative); WBC Urine Automated 0-5 /hpf (0-5); pH Urine 7.5 (4.5-7.5)
--- NOTE | 2024-11-20 11:35 | Discharge Summary ---
Discharge Summary Date of Service November 20, 2024 Principal Dx & Hospital Course #1 = Principal Diagnosis (1) LIOR (acute kidney injury): (2) Bladder stone: (3) Rheumatoid arthritis: Jesus Alberto Rosario is a 9-year-old male with past medical history hypothyroidism, hyperlipidemia, RA, BPH, acid reflux. Presented 11/18 for concern of obstructive renal stones. CT showed an 8 mm UVJ stone with mild right hydro. Pain relieved following admission and it was suspected that the stone had dropped into the bladder and was no longer obstructive. Creatinine was initially elevated consistent with obstructive uropathy this gradually downtrended x 2 days and was near but not yet quite at baseline by time of discharge. Patient had had intermittent mild dysuria with mild hematuria, but repeat UA prior to discharge did not show any evidence of UTI. He was discharged to continue for alfuzosin, and Azo for symptomatic relief with return precautions for UTI/pyelosymptoms. Urologic intervention was not recommended at time of admission, urology was consulted and recommended outpatient follow-up which was being scheduled. Patient did not show any signs of urinary retention day of discharge. Prior to admission to the hospital patient had been treated for a possible cellulitis with doxycycline, there was no warmth erythema or tenderness of the toe at time of hospitalization patient had not yet picked up his doxycycline as prescribed over a week ago. Inconsistent with cellulitis and antibiotics were deferred for this Do as outpatient Repeat BMP by PCP within 1 week to ensure renal function remained stable/normalizes Follow-up outpatient with urology No antibiotics were prescribed at discharge Admission HPI Per Admitting Provider Abraham is an 89-year-old male with PMH of hypothyroidism, hypercholesteremia, rheumatoid arthritis, BPH, and acid reflux. He presented on 11/18 out of concern for kidney stones. He had imaging done yesterday and was referred to the ER for a potential "blocking" stone. Patient endorses difficulty with urination, malodorous urine, and mild burning when he begins to urinate. He denies prior history of UTIs or kidney stones. While he is not having any pain at this time, he does report that he developed pressure in his lower abdomen/suprapubic region while in the ED. Patient is unsure if he recently stopped his alfuzosin. He reports that he did not take his regular morning medicine today, and manages his own medicine at home. He also reports that he takes tofacitinib for his rheumatoid, and is concerned that it is not on formulary here; he reports he did bring in from home. Additionally, patient is currently on doxycycline for cellulitis. Patient has had obstruction due to his prostate in the past. Patient denies smoking, tobacco use, recent alcohol use. He does not ambulate with a cane or walker at baseline. Patient is hypertensive at 217/105 at time of admission; vitals otherwise stable. ED course: NSS 500 mL IV ROS: Patient endorses lightheadedness, lower abdominal pressure, difficulty urinating, malodorous urine, mild burning when he starts to pee, and orange urine. Patient denies fever, chills, night-sweats, ANNE, chest pain, SOB, cough, abdominal pain, flank pain bilaterally, N/V/D, urinary incontinence, and bright red blood in the urine. Discharge Exam General: A&Ox3. NAD. Cooperative. HEENT: Atraumatic, normocephalic. Pulm: CTAB A&P. -wheezes, -rales, -rhonchi. Symmetrical chest rise. No increased work of breathing. No respiratory distress. Cardiac: RRR, -mrg. Radial pulses intact and symmetrical. Abdominal: Nontender, nondistended, soft. BS present. Discharge Plan Discharge Items Patient Disposition: Home - Self-Care Reason For Visit: BLADDER STONE, DIFFICULTY URINATING Discharge Diagnosis: Bladder stone Activity: Resume your previous activity Non-emergency contact: Primary Care Provider and Urologist Call non-emergency contact if: you have any medication questions and your symptoms worsen Follow-up/Referrals: Connor Coates MD [Physician] - Margot Acevedo DO [Primary Care Provider] - Diet: Regular Addtl Attending Provider Instructions: You were seen in the hospital for concern for a bladder stone with obstruction.Your CAT scan showed a obstructive stone near the utero vesicular junction, an area where the connecting tube from the kidney connects and can become blocked. Your kidney function was elevated however on reassessment your kidney function improved over 2 days and your stone was felt to have passed into the bladder. Urology was consulted. No urologic intervention was recommended at time of hospitalization. Urology did recommend outpatient follow-up. This is being scheduled as noted above. Of recheck of your kidney numbers performed by your primary care physician within 1 week. Follow-up with your PCP is being scheduled as noted above. Your kidney numbers (creatinine) were not completely at baseline, but progressively improved over 2 days and were near baseline at time of discharge. Her normal kidney numbers are around 1.31.4. These peaked at 2.07 during admission, and progressively improved to 1.67 by time of discharge Your urine did not show any evidence of a UTI. He did have you did have some mild burning with urination and some irritation with a scant amount of blood in the urine likely related to your bladder stone. You are provided with a prescription for Pyridium can treat this discomfort. If you have worsening discomfort, difficulty voiding, fevers chills or sweats, abdominal pain, or other new or concerning symptoms please seek medical reevaluation. If you develop any new or worsening symptoms including fever, chills, sweats, chest pain, chest pressure, difficulty breathing, uncontrolled nausea/vomiting, rash, wheezing, passing out or nearly passing out, bleeding, black/bloody bowel movements, or other new or concerning symptoms please call your primary care physician, or call 911 for re-evaluation in the emergency department if you are very concerned. Pending Studies at Discharge: No Stand-Alone Forms: My [employer], Smoking Cessation Medications and DC Order Prescriptions: New phenazopyridine [Pyridium] 100 mg tablet 100 mg PO TID PRN (Reason: pain) Qty: 14 0RF Continued pantoprazole 40 mg tablet,delayed release (DR/EC) 40 mg PO DAILY Qty: 90 3RF levothyroxine [Synthroid] 50 mcg tablet 50 mcg PO DAILY Qty: 90 3RF metoprolol succinate 50 mg tablet extended release 24 hr 50 mg PO DAILY Qty: 90 3RF alfuzosin [Uroxatral] 10 mg tablet extended release 24 hr 10 mg PO DAILY Qty: 90 3RF Rx Instructions: administer after the same meal each day Caltrate 600 plus D 600 mg-20 mcg (800 unit) tablet,chewable 2 tab PO DAILY Ensure Plus 0.05-1.5 gram-kcal/mL liquid 1 ea PO DAILY Xeljanz XR 11 mg tablet extended release 24 hr 11 mg PO UD Rx Instructions: 11 mg po daily. No fill history available Prolia 60 mg/mL syringe 60 mg subcut DIRECTED Rx Instructions: last filled per history 06/07/24 180 day supply Vitamin D3 1 tab PO DIRECTED Rx Instructions: otc unknown dose Discontinued doxycycline hyclate 100 mg tablet 100 mg PO BID Qty: 14 0RF Discharge Orders: Discharge Order (Routine); Ordered 11/20/24 Ordered By: Dorian Mason/Other Patient Handouts: Understanding Kidney Stones Admission Data Admit Date/Time: 11/18/24 11:09 Attending Provider: Dorian De La Fuente Admit Provider: Dorian De La Fuente Primary Care Provider: Margot Acevedo Other Providers: Dorian De La Fuente; Connor Coates Other Interventions: Discharge Summary Assessment (RN) Last Done: 11/20/24 11:19 Hospital Stay Data Consultations 11/18/24 10:30 Consult Urology Routine ED Decision to Admit Stat Diagnostic Imagining Performed 11/18/24 08:55 CT abd pelvis wo con Stat Pending Results Patient Have Any Pending Studies at Discharge: No Discharge Instructions Given to Patient (Per Discharging Provider) You were seen in the hospital for concern for a bladder stone with obstruction.Your CAT scan showed a obstructive stone near the utero vesicular junction, an area where the connecting tube from the kidney connects and can become blocked. Your kidney function was elevated however on reassessment your kidney function improved over 2 days and your stone was felt to have passed into the bladder. Urology was consulted. No urologic intervention was recommended at time of hospitalization. Urology did recommend outpatient follow-up. This is being scheduled as noted above. Of recheck of your kidney numbers performed by your primary care physician within 1 week. Follow-up with your PCP is being scheduled as noted above. Your kidney numbers (creatinine) were not completely at baseline, but progressively improved over 2 days and were near baseline at time of discharge. Her normal kidney numbers are around 1.31.4. These peaked at 2.07 during admission, and progressively improved to 1.67 by time of discharge Your urine did not show any evidence of a UTI. He did have you did have some mild burning with urination and some irritation with a scant amount of blood in the urine likely related to your bladder stone. You are provided with a prescription for Pyridium can treat this discomfort. If you have worsening discomfort, difficulty voiding, fevers chills or sweats, abdominal pain, or other new or concerning symptoms please seek medical reevaluation. If you develop any new or worsening symptoms including fever, chills, sweats, chest pain, chest pressure, difficulty breathing, uncontrolled nausea/vomiting, rash, wheezing, passing out or nearly passing out, bleeding, black/bloody bowel movements, or other new or concerning symptoms please call your primary care physician, or call 911 for re-evaluation in the emergency department if you are very concerned. Total Time Total Time Spent Total Time Spent (In Minutes): Time spend day of discharge 35 minutes including direct patient care, documentation, review of labs and images, and coordination of care. Coding Level of Care Code 30324 INP/OBS DISCH >30 MIN Diagnoses LIOR (acute kidney injury) N17.9 Bladder stone N21.0 Rheumatoid arthritis M06.9
== END 2024-11-20 13:39 | disposition home or self-care (01) ==
LOC: EDINP 08:36 → ED 08:36 → 3W 13:48

== ENCOUNTER 2025-01-19 08:33 | Observation (INO) ==
--- NOTE | 2025-01-03 10:26 | Anesthesiology Consultation ---
Date of Service January 03, 2025 Assessment & Plan (1) Encounter for pre-operative examination: Chart Review Chart Review: Acceptable Risk for Surgery and Patient NOT seen in Pre Admission Testing -BMP ordered for AM of surgery (12/26/24 creat 2.15 and eGFR 28.71 therefore NSS ordered; if creat improves, consider new order for LR) Infectious Disease screening: Per PAT nursing assessment on 01/03/25, No known infectious disease contacts in past 10 days or current infectious disease symptoms. No recent travel outside the country. History Surgery Operation Date: 01/12/25 12:50 Proposed Procedures p Cystoscopy, Ureteronephroscopy, Retrograde Pyelogram, with Possible Ureteral Dilation, Laser Destruction or Extraction of the Stone, Insertion or Exchange of Stent Catheter - - Faustino Rahman DO Height/Weight Height: 5 ft 9.5 in Weight: 80.739 kg Allergies Allergy/AdvReac Type Severity Reaction Status Date / Time No Known Allergies Allergy Verified 01/03/25 07:32 Medications Home Medications Medication Instructions Recorded Confirmed Last Taken food supplemt, lactose-reduced 1 ea PO DAILY 03/27/22 01/03/25 Unknown 0.05 gram-1.5 kcal/mL oral liquid (Ensure Plus) tofacitinib 11 mg tablet,extended 11 mg PO UD 04/08/23 01/03/25 Unknown release 24 hr (Xeljanz XR) alfuzosin 10 mg tablet,extended 10 mg PO DAILY #90 tabs 04/13/24 01/03/25 Unknown release 24 hr (Uroxatral) pantoprazole 40 mg tablet,delayed 40 mg PO DAILY #90 tabs 06/14/24 01/03/25 Unknown release levothyroxine 50 mcg tablet 50 mcg PO DAILY #90 tabs 08/15/24 01/03/25 Unknown (Synthroid) metoprolol succinate 50 mg 50 mg PO DAILY #90 tabs 09/23/24 01/03/25 Unknown tablet,extended release 24 hr denosumab 60 mg/mL subcutaneous 60 mg subcut DIRECTED 11/18/24 01/03/25 Unknown syringe (Prolia) phenazopyridine 100 mg tablet 100 mg PO TID PRN pain 6 doses #14 11/20/24 01/03/25 Unknown (Pyridium) tabs calcium carbonate 200 mg calcium 2 tab PO QAM 01/03/25 01/03/25 Unknown (500 mg)-vitamin D3 400 unit tablet Past Medical History Medical History (Updated 01/03/25 @ 10:37 by Debora Loaiza PA-C) Acid reflux disease Acute kidney injury superimposed on CKD creat remains elevated 2/ bladder stone Bladder stone BPH (benign prostatic hyperplasia) CKD stage 3a, GFR 45-59 ml/min follows with [facility]; baseline creat 1.3-1.4mg/dl History of anesthesia reaction states hx of issues w/ hypotension History of colon polyps History of esophageal stricture Hx of basal cell carcinoma Hx of hypercholesterolemia Hx of influenza 12/02/24; tx with tamiflu Hx of supraventricular tachycardia AVNRT s/p RF ablation 2006; follows w/ Dr Mendez; no recurrence since ablation Hydronephrosis, right HX Hypothyroidism Near syncope 12/02/24- was positive for flu, no issues since Osteoporosis Rheumatoid arthritis Past Family History Family History Mother Cancer Father Cirrhosis Denies family history of Ovarian cancer Prostate cancer Myocardial infarction Breast cancer Colorectal cancer Past Surgical History Surgical History (Updated 01/03/25 @ 10:34 by Debora Loaiza PA-C) H/O cardiac radiofrequency ablation 2006 RF ablation for AVNRT History of esophagogastroduodenoscopy (EGD) Hx of basal cell carcinoma excision multiple sites S/P cholecystectomy S/P colonoscopy 08/15/2021 Social History Smoking Status: Former smoker Do You Dip or Chew Tobacco: No Smoking End Date: quit in his 20's Hx Alcohol Use: No Hx Substance Use: No substance use type: does not use Lab Results Anesthesia Preop Results Results Anesthesia Widget: WBC 7.34 K/ul (4.8-10.8) 12/26/24 Hgb 12.5 g/dl (14.0-18.0) L 12/26/24 Hct 38.1 % (42.0-52.0) L 12/26/24 Plt 264 K/uL (130-400) 12/26/24 Na 134 mmol/L (136-145) L 12/26/24 K 4.6 mmol/L (3.5-5.1) 12/26/24 Cl 101 mmol/L (98-107) 12/26/24 CO2 29 mmol/L (21-32) 12/26/24 BUN 21 mg/dl (6-23) 12/26/24 Creat 2.15 mg/dl (0.6-1.4) H 12/26/24 Glucose Level 93 mg/dl (70-99(Fasting)) 12/26/24 TSH 3.815 uIu/ml (0.300-4.500) 11/15/24 Urine Color Yellow 12/15/24 Urine Appearance Clear (Clear) 12/15/24 Urine pH 6.5 (4.5-7.5) 12/15/24 Urine Specific [place] 1.010 (1.000-1.030) 12/15/24 Urine Protein Negative (Negative) 12/15/24 Urine Glucose (UA) Negative (Negative) 12/15/24 Urine Ketones Negative (Negative) 12/15/24 Urine Blood Negative (Negative) 12/15/24 Urine Nitrite Negative (Negative) 12/15/24 Urine Bilirubin Negative (Negative) 12/15/24 Urine Urobilinogen Negative (Negative) 12/15/24 Urine Leukocyte Esterase 2+ (Negative) H 12/15/24 Urine WBC (Auto) 0-5 /hpf (0-5) 12/15/24 Urine RBC (Auto) 0-2 /hpf (0-2) 12/15/24 Urine Hyaline Casts (Auto) 0-2 /lpf (0-2) 12/15/24 Urine Epithelial Cells (Auto) 0-2 /hpf (0-2) 12/15/24 Urine Bacteria (Auto) None Seen (None Seen) 12/15/24 Testing Laboratory Results 12/26/24: urine culture: more than three types of organisms present, all low counts mixed probable skin scott. Electrocardiogram Date: 11/18/24 SR with 1st degree AVB. Rate: 63bpm Possible old anterior infarct (cited on/before 02/04/2020) Chest X-Ray Date: 12/02/24 Findings: + NAD lungs hyperinflated with changes of COPD Mild CM Other Testing Abd/Pelvis CT 12/26/24: 1. Right moderate hydronephrosis and hydroureter due to distal ureteric intraluminal soft tissue lesion surrounded with fat stranding, more prominent compared to last CT possibility of being neoplastic lesion, TCC, can't be ruled out, advised contrast enhanced CT study (renal protocol) and histopathologic correlation. 2. A small right hemorrhagic cortical renal cyst, no interval changes. 3. Mobile rounded urinary bladder stone, stable in size with change position at left base. 4. Diffuse irregularity of the urinary bladder wall thickening with diverticular formation, suggesting chronic bladder outlet obstruction. No interval changes. 5. Enlarged prostate with coarse parenchymal calcification indenting the base of the urinary bladder. No interval changes.
[~2025-01-19 08:33] MED LIST changes: -ACETAMINOPHEN 500 MG TAB PO ONE; -ACETAMINOPHEN 500 MG TAB PO SCH; -CHOL2000 PO; -LEVO25TA PO; -NATURAL SUPPLEMENT PO; -PANT1TAB3 PO; +PROPOFOL IV EMULSION 10 MG/ML 20 ML VIAL IV ONE; -SODIUM CHLORIDE 0.9% IV ONE; -ZOLEDRONIC ACID IV ONE; +fentaNYL citrate PF 100 MCG/2 ML VIAL ONE
--- NOTE | 2025-01-19 09:35 | History & Physical Bridge Note ---
Date of Service January 19, 2025 History & Physical Bridge Note I have examined the patient, reviewed the History & Physical and in the interval since the performance of the History & Physical I have noted the following changes of clinical significance: no changes noted
[2025-01-19] MEDS ORDERED: ATROPINE SULFATE 0.1 MG/ML 10ML SYR IV PRN (09:36)
[2025-01-19] MEDS ORDERED: PROMETHAZINE HCL 6.25 MG in SODIUM CHLORIDE 0.9% 50 ML IV PRN (09:36)
[2025-01-19] MEDS ORDERED: ePHEDrine sulfate 50 MG/ML AMP IV PRN (09:36)
[2025-01-19 09:51] LABS: BUN Creatinine Ratio 11.6 (10-20); Calcium 9.4 mg/dl (8.6-10.3); Creatinine Clr Calc Pharmacy 24.6 ml/min; Potassium 4.5 mmol/L (3.5-5.1)
[2025-01-19] MEDS: SODIUM CHLORIDE 0.9% 1,000 ML IV SCH (09:59)
[2025-01-19] MEDS: ceFAZolin 2000MG 2,000 MG/15 ML SYR IV SCH ×2 (10:24→18:10)
[2025-01-19] MEDS ORDERED: ePHEDrine sulfate 50 MG/5 ML SYR ONE (10:42)
[2025-01-19] MEDS ORDERED: ONDANSETRON INJ 2 MG/ML 2 ML VIAL ONE (11:06)
--- NOTE | 2025-01-19 12:08 | Operative Report ---
PG Post Operative Report Pre & Post Diagnosis Operation Date: 01/19/25 10:25 Pre-Op Diagnosis: Unspecified Hydronephrosis, Urothelial Lesion Post-Op Diagnosis: Unspecified Hydronephrosis, Urothelial Lesion I identified the patient and participated in the time-out.: Yes Procedure Operation Date: 01/19/25 10:25 Actual Procedures Cystoscopy, with Bilateral Retrograde Pyelogram,Bilateral Ureteral Stent Insertion, Laser Cystolitholapaxy, and urethral dilation Right Kidney Selective Cytology, Right Ureteral Dilation, Right Ureteroscopy, Ureteral Tumor Biopsy, Right Ureteral Tumor Ablation, Right Ureteral tumor laser excision - Faustino Rahman, Surgeon Faustino Rahman, II, DO Box Packer None Estimated Blood Loss 10 Findings Consistent with Post-Op Diagnosis 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 Large Bladder Stone Approx 2.8 cm in size destroyed to dust and small fragments and larger fragments removed. Mild hydronephrosis of the left Severe prostate enlargement with large median Lobe. Stricture of Right UO. Stricture of distal Right ureter. 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 Significant hydroureter and hydronephrosis on right. Large debris in right renal pelvis. Specimens Stone Fragments - Bladder Urine Cytology Right kidney Ureteral Tumor Biopsy Drains 20 Fr Coude Catheter 7 Fr x 26 cm Right Stent 4.8 Fr x 26 cm Left Stent Anesthesia Type General Complications none Disposition Disposition: Recovery Room Indications Patient with bothersome stones within bladder and hydronephrosis with possible ureteral tumor. Risks and benefits discussed at length. Description of Procedure Patient was consented and brought back to the operating room. Patient was placed under anesthesia in the supine position and moved to the dorsal lithotomy position. Patient was prepped and draped in the regular sterile fashion. A time out was completed identifying the correct patient and procedure. A 30degree Cystoscope was placed into the bladder and the entire bladder was examined. The distal meatus and distal urethra were found to be narrowed with stricture. The strictures were dilated. The scope was then advanced. The prostate was found to be severely enlarged with a large median lobe causing significant obstruction and large varicosities. The UO's were identified. A large stone was discovered in a diverticulum off to the left side. The stone was able to be flushed out of the diverticulum and into the base of the bladder. The stone to be more. A bladder stone to be destroyed small pieces. Pieces will be flushed out removed and sent for analysis. The UO was cannulized with a catheter and a retrograde pyelogram was completed. This was completed on the left and the right. A wire was then placed. The left had a mild hydronephrosis appearance likely due to incomplete emptying from severe obstruction with multiple diverticulum throughout the bladder. There was significant J hooking of the ureter. A 4.8 [place]er double-J ureteral stent was then placed and confirmed to be in good position on the left under fluoroscopy. Due to current findings on the imaging on the right side prior to completing the retrograde pyelogram a 5 [place]er open-ended catheter was placed into the ureter. The distal UO had to be dilated in order to advance the 5 [place]er catheter. With manipulation it was also able to bypassed an area in the distal ureter that was hard to navigate and a third area in the mid ureter was also difficult to navigate around the wire was utilized to advance the 5 [place]er open-ended catheter into the midportion of the ureter. Aspiration and selective cytology was then completed on the right side at the section of the mid ureter a approximately 10 cc of urine was able to be aspirated and sent for analysis. At this point a retrograde pyelogram was completed on the right side there was significant hydroureter there was significant stricture of the distal ureter including the UO. There was significant hydroureter throughout the mid and proximal ureter and a irregular filling defect in the mid ureter concerning for possible tumor. The distal ureter and UO was able to be dilated. A flexible ureteroscope was taken over a second wire into the ureter. The areas of dilation have been assessed and there was no major injury. A tumor was encountered in the mid ureter. At this point, A ureteral access sheath and second safety wire was placed. The flexible ureteroscope was taken into the ureter. The areas of dilation of the distal ureter were examined. There was no major injury or other areas concern. A tumor was once again evaluated in the mid ureter. Papillary appearing lesions were also found proximal to this but a large nodular tumor was noted in the midportion of the ureter causing considerable obstruction. The scope was able to advance around this and enter into the proximal ureter and advanced to the renal pelvis The entire ureter and renal pelvis were examined. A large amount of debris was noted in the proximal ureter and renal pelvis. Visualization was extremely limited. No obvious mass or tumor was discovered along the urothelial lining. The scope was slowly removed back down to the mid ureter where the large tumor and multiple papillary lesions were once again discovered. The base of the nodular tumor did appear to have a stalk however it was wide base. Soft tissue settings were then utilized with the laser. The laser fiber was once again selected. The papillary appearing lesions in the more proximal section of the mid ureter were able to be ablated using the ablation setting. The base of the larger tumor was able to be assessed. Utilizing the laser the stock was able to be incised and ablated. The tumor was able to be ablated. A larger biopsy was able to be completed in this manner. A basket was selected and the larger biopsy specimen was able to be grasped and removed. Additional tissues were taken from the papillary appearing lesion and the nodular tissue remaining after the excision/ablation of the tumor. The entire area was inspected. No significant injury was noted. The crossing of the iliacs was able to be appreciated in the same location. Did not appear to have any significant bleeding and the majority of the irregular tissue appeared to be well ablated or excised utilizing the laser. There was significant hydroureter past this and the area was somewhat narrowed due to the significant swelling. At this point the scope was advanced to the UPJ once again no major tumor or other issues. The entire area was once again examined. No residual large fragments or areas of concern were noted. Visualization of the renal pelvis specifically was limited secondary to some debris in the renal pelvis that appeared to be old blood. The scope was slowly removed with the wire left in place. Contrast was placed through the scope for a pyelogram to assist in stent placement. No significant injury or other areas of concern were noted on the final retrograde pyelogram. The entire ureter was examined as the scope was slowly removed. No obstructions or other areas of concern were noted. With the wire in place, a 7 Fr Double J stent was placed. It was confirmed with fluoroscopy. With the stent in place, the bladder was emptied. The scope was removed. There was some mild bleeding coming from the distal urethra/meatus from the dilation at the very beginning of the case. There was also some areas of mildly bleeding varicosities within the prostatic urethra from the very large prostate. It was decided at this point to place a catheter. A 20 [place]er coud catheter was placed and set to drainage. Urine appeared to be clear. The patient was cleaned, aroused from anesthesia, and transferred to the pacu in stable condition having tolerated the procedure well with no complications. I was present and participated in all aspects of the procedure. The patient will be monitored in the PACU until transferred. Will plan to maintain catheter for approximately 2 weeks. Will have patient return to office to follow-up to discuss pathology findings and possible options moving forward I attest to the content of the Intraoperative Record and any orders documented therein. Any exceptions are noted below.
[2025-01-19] MEDS: fentaNYL citrate PF 100 MCG/2 ML VIAL IV PRN (12:20)
[2025-01-19] MEDS: DIATRIZOATE MEGLUMINE 30% 100ML VIAL INSTIL ONE (12:20)
[2025-01-19] MEDS: PHENAZOPYRIDINE HCL 200 MG TAB PO PRN (13:01)
--- NOTE | 2025-01-19 14:06 | Fluoroscopy Report ---
FL retrograde includes kub CLINICAL HISTORY: BILATERALretrograde pyelograms and stent placement COMPARISON STUDY: None pertinent FLUOROSCOPY TIME: 124.8 seconds FLUOROSCOPY IMAGES: 6 EXPOSURE DOSE: 29.36 mGy FINDINGS: Fluoroscopic guidance provided for retrograde pyelography and stent placements IMPRESSION: Please refer to the procedure report for evaluation based upon a real-time fluoroscopic o bservations ACT 112: Negative or not required by law. Electronically signed by: Yuki Hernadez M.D. 01/19/2025 2:04 PM
[2025-01-19] MEDS: PHENAZOPYRIDINE HCL 200 MG TAB ONE (14:37)
--- NOTE | 2025-01-19 14:47 | Electrocardiogram Report ---
Test Reason : Blood Pressure : */* mmHG Vent. Rate : 58 BPM Atrial Rate : 71 BPM P-R Int : * ms QRS Dur : 90 ms QT Int : 518 ms P-R-T Axes : 88 0 30 degrees QTcB Int : 508 ms Sinus rhythm with 2nd degree A-V block (Mobitz I) Prolonged QT Abnormal ECG When compared with ECG of 18-Nov-2024 16:38, Sinus rhythm is now with 2nd degree A-V block (Mobitz I) Confirmed by Onur Montero ([id number]) on 01/19/2025 2:46:46 PM Referred By: Faustino Rahman Confirmed By: Onur Montero
--- NOTE | 2025-01-19 14:54 | Anesthesiology Progress Note ---
Date of Service January 19, 2025 Anesthesia Post Procedure Vital Signs Vital Signs: Temp Pulse Resp BP Pulse Ox O2 Del Method O2 Flow Rate 01/19/25 13:25 58 L 15 171/94 H 94 Room Air 01/19/25 13:10 63 16 160/91 H 93 Room Air 01/19/25 13:00 62 14 137/85 93 Room Air 01/19/25 12:50 59 L 14 151/88 H 92 Room Air 01/19/25 12:40 48 L 18 152/93 H 95 Room Air 01/19/25 12:30 58 L 20 174/85 H 95 Room Air 01/19/25 12:20 64 18 170/92 H 95 Room Air 01/19/25 12:10 68 16 162/92 H 98 Oxymask 6 01/19/25 12:01 37.0 C 65 12 163/104 H 98 Oxymask 6 01/19/25 09:35 Room Air 01/19/25 09:35 36.9 C 74 20 166/91 H 96 Room Air Pain Intensity Perineal: Pain Intensity: 10 Transfer of Care Handoff Completed per policy Notes Mental Status: alert / awake / arousable and participated in evaluation Nausea / Vomiting: adequately controlled Pain: adequately controlled Airway Patency, RR, SpO2: stable & adequate BP & HR: stable & adequate Hydration State: stable & adequate Anesthetic Complications: no major complications apparent and Pt Satisfied with anesthetic care
[2025-01-19] MEDS: MoRPHine SULFATE 2 MG/ML CARP IV PRN (15:14)
[2025-01-19] MEDS: COUGH DROP (SUGAR FREE) LOZ 24 LOZ/1 BOX BUCCAL PRN (15:15)
--- NOTE | 2025-01-19 15:53 | Cardiology Consultation ---
Date of Consultation January 19, 2025 Assessment & Plan (1) Mobitz type 1 second degree AV block: (2) Hx of supraventricular tachycardia: (3) H/O cardiac radiofrequency ablation: (4) CKD stage 3a, GFR 45-59 ml/min: Plan 89-year-old man with history of remote PSVT status post successful radiofrequency ablation 2006 with no recurrence developed Mobitz 1 secondary AV block after urologic procedure this morning. He is tolerating the thus far benign level of heart block with no symptoms attributable to this and no evidence of hypotension or hypoperfusion. Although there is some risk of recurrent PSVT, it has been nearly 20 years since his successful ablation and the near-term risk is for higher degree heart block, therefore at least temporarily discontinue metoprolol succinate 50 mg daily dosing (I put in the stop order). Will hold dose tomorrow, if heart block resolves could consider restarting at reduced dose of metoprolol succinate 25 mg daily. Will continue to follow from a cardiology standpoint. History of Present Illness Reason for Consultation: new second degree heart block Requesting Physician: Clint Stubbs MD Attending Physician: Faustino Rahman, II, DO History of Present Illness 89-year-old man with remote history of PSVT (AVNRT, RF ablation 2006, no recurrence), no other cardiac history, who developed Mobitz 1 second-degree AV block during or shortly after urologic surgery this morning. He sees Dr. Mendez routinely for cardiology follow-up and has been on metoprolol succinate 50 mg daily with no evidence of recurrent PSVT or other dysrhythmias. He is able to carry on routine activities of daily living with no exertional chest pain, dyspnea, orthopnea, PND, edema, palpitations, lightheadedness, presyncope, or syncope. Medical issues include rheumatoid arthritis (on Xeljanz), chronic kidney disease, right-sided hydronephrosis with possible bladder lesion. No HTN, DM, or known CAD (only mild vascular calcification on recent abdominal CT) Cardiac data: Preoperative ECG October 2024 showed sinus rhythm with first-degree AV block at 63 bpm, possible old anterior infarct. Of note, MT interval was 302 ms. Compared with 2019 ECG, MT interval increased and ventricular rate decreased by 49 bpm. Postop ECG in the recovery room showed sinus rhythm with second-degree Mobitz type I AV block with ventricular rate 58 bpm. No prior echocardiogram located (records reviewed back to 2008). At the time my evaluation this afternoon, patient complained of feelings of urinary urgency (has Amyaa catheter with hematuria postop), no other somatic complaints. She denied chest pain, palpitations, dyspnea, or lightheadedness. Allergies Allergy/AdvReac Type Severity Reaction Status Date / Time adhesive AdvReac skin tear Verified 01/19/25 09:29 Home Medications Medication Instructions Recorded Confirmed Type food supplemt, lactose-reduced 1 ea PO DAILY 03/27/22 01/19/25 History 0.05 gram-1.5 kcal/mL oral liquid (Ensure Plus) tofacitinib 11 mg tablet,extended 11 mg PO UD 04/08/23 01/19/25 History release 24 hr (Xeljanz XR) alfuzosin 10 mg tablet,extended 10 mg PO DAILY #90 tabs 04/13/24 01/19/25 Rx release 24 hr (Uroxatral) levothyroxine 50 mcg tablet 50 mcg PO DAILY #90 tabs 08/15/24 01/19/25 Rx (Synthroid) metoprolol succinate 50 mg 50 mg PO DAILY #90 tabs 09/23/24 01/19/25 Rx tablet,extended release 24 hr denosumab 60 mg/mL subcutaneous 60 mg subcut DIRECTED 11/18/24 01/19/25 History syringe (Prolia) calcium carbonate 200 mg calcium 2 tab PO QAM 01/03/25 01/19/25 History (500 mg)-vitamin D3 400 unit tablet cephalexin 500 mg capsule 500 mg PO BID 7 days #14 caps 01/19/25 Rx oxycodone-acetaminophen 7.5 mg-325 1 tab PO Q8H PRN pain 3 days #7 01/19/25 Rx mg tablet (Percocet) tabs pantoprazole 40 mg tablet,delayed 40 mg PO DAILY 01/19/25 01/19/25 History release (Protonix) phenazopyridine 200 mg tablet 200 mg PO Q8H PRN pain #10 tabs 01/19/25 Rx (Pyridium) Patient History Medical History History of blood transfusion during diverticular episode [facility] > 2-3 years ago - unknown etiology Osteoarthritis as per patient Dysphagia "I have to be really careful with what I eat. Meat is usually the worst" as per patient History of esophageal dilatation Diverticular disease 2-3 years ago - [facility] Hospitalization - required blood transfusion - patient unsure of etiology for needing blood - no issues since Acute kidney injury superimposed on CKD creat remains elevated 2/2 bladder stone CKD stage 3a, GFR 45-59 ml/min follows with [facility]; baseline creat 1.3-1.4mg/dl History of anesthesia reaction states hx of issues w/ hypotension Hx of influenza 12/02/24; tx with tamiflu Near syncope 12/02/24- was positive for flu, no issues since Hx of hypercholesterolemia Hx of basal cell carcinoma Acid reflux disease History of esophageal stricture Hypothyroidism Hx of supraventricular tachycardia AVNRT s/p RF ablation 2006; follows w/ Dr Mendez; no recurrence since ablation Rheumatoid arthritis History of colon polyps BPH (benign prostatic hyperplasia) Bladder stone Hydronephrosis, right HX Surgical History Hx of basal cell carcinoma excision multiple sites History of esophagogastroduodenoscopy (EGD) S/P cholecystectomy S/P colonoscopy 08/15/2021 H/O cardiac radiofrequency ablation 2006 RF ablation for AVNRT Family History Mother Cancer Father Cirrhosis Denies family history of Ovarian cancer Prostate cancer Myocardial infarction Breast cancer Colorectal cancer Social History Smoking Status: Former smoker Tobacco Type: Cigarettes Age Started Using Tobacco: 24; Age Quit Using Tobacco: 27; packs per day: 3; Second Hand Exposure: No; Do You Dip or Chew Tobacco: No; Hx Alcohol Use: No Hx Substance Use: No Preferred Language: Armenian Communication Ability: Effective Visual Impairment: No Limitations Hearing Ability: Normal Production Associate Required: No Beliefs That Will Affect Care: None marital status: Current Living Situation: Spouse current occupational status: 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 Afebrile. BP 179/60 mmHg. Pulse 57 bpm and regular with pauses. Skin: no ecchymoses or generalized lesions. HEENT: unremarkable. Neck: JVP to the angle of the jaw at 30 degrees, no carotid bruits. Lungs: clear. Cardiac: regular rhythm with brief pauses, normal S1-2, no murmur. Abdomen: benign. Has Amaya catheter with hematuria. Extremities: no edema, pulses intact. Neurologic: normal affect and conversation, nonfocal. Results & Data Laboratory Results Hemoglobin 12.5, normal white count platelet count. Normal electrolytes, BUN 24, creatinine 2.07. Diagnostic Findings Preoperative chest x-ray November 2024 with mild cardiomegaly, otherwise unremarkable. ECGs as per HPI. PG Care Time/CCT Total # of Minutes Spent Total Time Spent with Patient: Total time spent is greater than 50% in coordination of care (as documented) at patient's floor/unit and/or counseling patient: Coding Level of Care Code 20511 IN/OBS CONSULT LVL 4,60M Diagnoses Mobitz type 1 second degree AV block I44.1 Hx of supraventricular tachycardia Z86.79 H/O cardiac radiofrequency ablation Z98.890 CKD stage 3a, GFR 45-59 ml/min N18.31
[2025-01-19] MEDS: oxyBUTYnin chloride 5 MG TAB PO PRN (18:10)
--- NOTE | 2025-01-19 18:13 | Hospitalist Consultation ---
Date of Consultation January 19, 2025 Assessment & Plan (1) Mobitz type 1 second degree AV block: Patient with above diagnosis. This appears new. Consulted cardiology. will hold beta jody. will monitor. tele monitor. (2) Hypothyroidism: resume home meds History of Present Illness Reason for Consultation: mobitz type 1 second degree heart block Attending Physician: Faustino Rahman, II, DO History of Present Illness 89 yo male here in the hospital for bilateral hydronpehrosis, s/p 2 ureteral stents. While in recovery at PACU, patient was found to have devloped a MOBITZ type 1 second degree AV block after the procedure. Patient is currently asymptomatic aside from having bloated abdomen without much of an appetite. Patient sees Dr. Mendez for followup and is on metoprolol 50 mg daily. He complains of some dysuria. He denies chest pain, palpitations, dyspnea, or lightheadedness. Allergies Allergy/AdvReac Type Severity Reaction Status Date / Time adhesive AdvReac skin tear Verified 01/19/25 09:29 Home Medications Medication Instructions Recorded Confirmed Type food supplemt, lactose-reduced 1 ea PO DAILY 03/27/22 01/19/25 History 0.05 gram-1.5 kcal/mL oral liquid (Ensure Plus) tofacitinib 11 mg tablet,extended 11 mg PO UD 04/08/23 01/19/25 History release 24 hr (Xeljanz XR) alfuzosin 10 mg tablet,extended 10 mg PO DAILY #90 tabs 04/13/24 01/19/25 Rx release 24 hr (Uroxatral) levothyroxine 50 mcg tablet 50 mcg PO DAILY #90 tabs 08/15/24 01/19/25 Rx (Synthroid) metoprolol succinate 50 mg 50 mg PO DAILY #90 tabs 09/23/24 01/19/25 Rx tablet,extended release 24 hr denosumab 60 mg/mL subcutaneous 60 mg subcut DIRECTED 11/18/24 01/19/25 History syringe (Prolia) calcium carbonate 200 mg calcium 2 tab PO QAM 01/03/25 01/19/25 History (500 mg)-vitamin D3 400 unit tablet cephalexin 500 mg capsule 500 mg PO BID 7 days #14 caps 01/19/25 Rx oxycodone-acetaminophen 7.5 mg-325 1 tab PO Q8H PRN pain 3 days #7 01/19/25 Rx mg tablet (Percocet) tabs pantoprazole 40 mg tablet,delayed 40 mg PO DAILY 01/19/25 01/19/25 History release (Protonix) phenazopyridine 200 mg tablet 200 mg PO Q8H PRN pain #10 tabs 01/19/25 Rx (Pyridium) Patient History Medical History History of blood transfusion during diverticular episode [facility] > 2-3 years ago - unknown etiology Osteoarthritis as per patient Dysphagia "I have to be really careful with what I eat. Meat is usually the worst" as per patient History of esophageal dilatation Diverticular disease 2-3 years ago - [facility] Hospitalization - required blood transfusion - patient unsure of etiology for needing blood - no issues since Acute kidney injury superimposed on CKD creat remains elevated 2/ bladder stone CKD stage 3a, GFR 45-59 ml/min follows with [facility]; baseline creat 1.3-1.4mg/dl History of anesthesia reaction states hx of issues w/ hypotension Hx of influenza 12/02/24; tx with tamiflu Near syncope 12/02/24- was positive for flu, no issues since Hx of hypercholesterolemia Hx of basal cell carcinoma Acid reflux disease History of esophageal stricture Hypothyroidism Hx of supraventricular tachycardia AVNRT s/p RF ablation 2006; follows w/ Dr Mendez; no recurrence since ablation Rheumatoid arthritis History of colon polyps BPH (benign prostatic hyperplasia) Bladder stone Hydronephrosis, right HX Surgical History Hx of basal cell carcinoma excision multiple sites History of esophagogastroduodenoscopy (EGD) S/P cholecystectomy S/P colonoscopy 08/15/2021 H/O cardiac radiofrequency ablation 2006 RF ablation for AVNRT Family History Mother Cancer Father Cirrhosis Denies family history of Ovarian cancer Prostate cancer Myocardial infarction Breast cancer Colorectal cancer Social History Smoking Status: Former smoker Tobacco Type: Cigarettes Age Started Using Tobacco: 24; Age Quit Using Tobacco: 27; packs per day: 3; Second Hand Exposure: No; Do You Dip or Chew Tobacco: No; Hx Alcohol Use: No Hx Substance Use: No Preferred Language: Swazi Communication Ability: Effective Visual Impairment: No Limitations Hearing Ability: Normal Dye Jig Operator Required: No Beliefs That Will Affect Care: None marital status: Current Living Situation: Spouse current occupational status: 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 How many Children do You have: 1 Feels Safe at Home: Yes Childhood Exposure to Second-Hand Smoke: No Diet: regular caffeine: Yes during the past year weight has: remained stable Dental Care, Regularly: No Physical Activity Frequency: Does not Exercise Seatbelt Use: always Sunscreen Use: No Do you think of yourself as: straight/heterosexual Gender Identity: Male Assistive Devices: Denture - Upper and Denture - Lower Review of Systems Constitutional: no fever and no body aches Eyes: no blind spots Ear, Nose, Mouth, Throat: no ear pain Respiratory: no cough Cardiovascular: no chest pain Gastrointestinal: + abdominal pain Genitourinary: + dysuria Integumentary: no acne Neurologic: no gait abnormality Psychiatric: no behavioral changes Endocrine: no fatigue Hematologic / Lymphatic: no easy bleeding Allergy / Immunological: no GI upset with certain foods Physical Exam Constitutional: WD/WN, vitals as above Eyes: PERRL, conjunctivae normal, anicteric sclerae ENMT: external ear and nose normal, oropharynx normal Neck: trachea midline, no thyromegaly Respiratory: normal respiratory effort, lungs clear to auscultation Cardiovascular: RRR, no murmur, no edema Gastrointestinal (Abdomen): normal bowel sounds, soft, nontender, no hepatosplenomegaly Skin: no rashes, warm and dry Neurologic: PERRL, EOMI, accommodation nl, no face palsy, no dysarthria Psychiatric: A+Ox3, euthymic affect Lymphatic: no cervical or axillary lymphadenopathy Results & Data Results & Data Vital Signs (Past 12 Hours) Vital Signs Temp Pulse Pulse Resp BP Pulse Ox Pulse Ox 01/19/25 14:05 36.3 C L 57 L 20 179/69 H 96 01/19/25 14:05 36.3 C L 57 L 20 179/68 H 96 01/19/25 14:05 97 01/19/25 14:05 36.3 C L 57 L 20 179/69 H 97 01/19/25 13:40 57 L 17 171/94 H 94 01/19/25 13:25 58 L 15 171/94 H 94 01/19/25 13:11 68 01/19/25 13:10 63 16 160/91 H 93 01/19/25 13:00 62 14 137/85 93 01/19/25 12:50 59 L 14 151/88 H 92 01/19/25 12:40 48 L 18 152/93 H 95 01/19/25 12:30 58 L 20 174/85 H 95 01/19/25 12:20 64 18 170/92 H 95 01/19/25 12:10 68 16 162/92 H 98 01/19/25 12:01 37.0 C 65 12 163/104 H 98 01/19/25 09:35 01/19/25 09:35 36.9 C 74 20 166/91 H 96 O2 Del Method O2 Del Method O2 Flow Rate O2 Flow Rate 01/19/25 14:05 Room Air 01/19/25 14:05 Room Air 01/19/25 14:05 Room Air 0 01/19/25 14:05 Room Air 01/19/25 13:40 Room Air 01/19/25 13:25 Room Air 01/19/25 13:11 01/19/25 13:10 Room Air 01/19/25 13:00 Room Air 01/19/25 12:50 Room Air 01/19/25 12:40 Room Air 01/19/25 12:30 Room Air 01/19/25 12:20 Room Air 01/19/25 12:10 Oxymask 6 01/19/25 12:01 Oxymask 6 01/19/25 09:35 Room Air 01/19/25 09:35 Room Air PG Care Time/CCT Total # of Minutes Spent Total Time Spent with Patient: Total time spent is greater than 50% in coordination of care (as documented) at patient's floor/unit and/or counseling patient: Coding Level of Care Code 12987 IN/OBS CONSULT LVL 4,60M Diagnoses Mobitz type 1 second degree AV block I44.1 Hypothyroidism E03.9
[2025-01-19 18:22] VITALS: RESP 18
[2025-01-19] MEDS: ONDANSETRON INJ 2 MG/ML 2 ML VIAL IV PRN (18:47)
[2025-01-19] MEDS: oxyCODONE/ACETAMINOPHEN 5mg/325mg TAB PO PRN (21:54)
[2025-01-19] MEDS: DOCUSATE SODIUM 100 MG CAP PO SCH (21:55)
[2025-01-20] MEDS: PROCHLORPERAZINE 5 MG in SYRINGE 4 ML IV ONE ×2 (00:35→09:19)
[2025-01-20] MEDS: LEVOTHYROXINE SODIUM 50 MCG TABLET PO SCH (05:42)
[2025-01-20] MEDS: TAMSULOSIN HCL 0.4 MG CAP PO SCH (08:05)
[2025-01-20] MEDS: PANTOprazole 40 MG TAB PO SCH (08:05)
[2025-01-20] MEDS ORDERED: METOPROLOL SUCC 50MG EXT REL TAB PO SCH (09:00)
[2025-01-20] MEDS ORDERED: [UNRECOGNIZED DRUG - OTHER] PO SCH (09:00)
--- NOTE | 2025-01-20 09:27 | XRay Report ---
KUB HISTORY: Acute onset abdominal pain with nausea and vomiting nausea/ vomiting COMPARISON: CT 12/26/2024 FINDINGS: Nonobstructive bowel gas pattern. Nondilated air-filled loops of both large and small bowel are seen. Cholecystectomy. Bilateral ureteral stents are in place. A catheter projects over the mid line pelvis. No definite calculi identified along the course of either ureter. Subcentimeter pelvic c alcifications redemonstrated. No pneumoperitoneum or pneumatosis. No fracture. IMPRESSION: 1. Nonobstructive bowel gas pattern. 2. Bilateral ureteral stents are in place. No ureteral calculi identified. ACT 112: Negative or not required by law. The above report was generated using voice recognition software. It may contain grammatical, syntax o r spelling errors. Electronically signed by: Kayden Calero M.D. 01/20/2025 9:26 AM
--- NOTE | 2025-01-20 11:26 | Cardiology Progress Note ---
Date of Service January 20, 2025 Assessment & Plan (1) Mobitz type 1 second degree AV block: (2) Hx of supraventricular tachycardia: (3) H/O cardiac radiofrequency ablation: (4) CKD stage 3a, GFR 45-59 ml/min: Plan Doing well clinically, still with occasional episodes of Mobitz type I second- degree AV block, but much less frequently. Rather than restart him on a reduced dose of metoprolol, given ongoing evidence of conduction disease would discharge off beta-jody. He was on this for a previous PSVT which has not recurred since his ablation in 2006. If he does develop tachydysrhythmia, would reevaluate at that time and determine whether beta-jody is appropriate. If Mobitz 1 continues to be infrequent, okay for discharge after lunch. We have discontinued his metoprolol succinate 50 mg, should be discharged off beta- jody. Will arrange for routine follow-up with Dr. Mendez within the next few weeks. Admission and Anticipated Discharge Date Admission Date: January 19, 2025 Subjective Uneventful night. No chest pain, dyspnea, palpitations, or lightheadedness. Tolerating Amaya catheter better. Telemetry showed sinus rhythm with diminishing frequency of Mobitz type I second-degree AV block. Physical Exam Physical Exam: No distress. BP normotensive. Pulse 78 bpm and regular. Respirations 18 nonlabored. Skin: no ecchymoses or generalized lesions. HEENT: unremarkable. Neck: JVP to the angle of the jaw at 30 degrees, no carotid bruits. Lungs: clear. Cardiac: regular rhythm, normal S1-2, no murmur. Abdomen: benign. Has Amaya catheter. Extremities: no edema, pulses intact. Neurologic: normal affect and conversation, nonfocal. Results & Data Vital Signs (Past 12 Hours) Vital Signs Temp Pulse Pulse Resp BP Pulse Ox O2 Del Method 01/20/25 11:03 99.0 F 78 18 127/73 95 Room Air 01/20/25 07:24 77 01/20/25 07:09 97.5 F L 79 18 111/66 94 Room Air 01/20/25 03:27 98.4 F 70 18 113/71 95 Room Air Laboratory Results Normal electrolytes, BUN 24, creatinine 2.07. PG Care Time/CCT Total # of Minutes Spent Total Time Spent with Patient: Total time spent is greater than 50% in coordination of care (as documented) at patient's floor/unit and/or counseling patient: Coding Level of Care Code 04465 SUB INP/OBS CARE 2/35MIN Diagnoses Mobitz type 1 second degree AV block I44.1 Hx of supraventricular tachycardia Z86.79 H/O cardiac radiofrequency ablation Z98.890 CKD stage 3a, GFR 45-59 ml/min N18.31
--- NOTE | 2025-01-20 11:30 | Urology Progress Note ---
Date of Service January 20, 2025 Assessment & Plan (1) Urothelial lesion: (2) Hydronephrosis: (3) Bladder stone: (4) Mobitz type 1 second degree AV block: Plan 89-year-old male s/p on 01/19/2025 cystoscopy, with Bilateral Retrograde Pyelogram,Bilateral Ureteral Stent Insertion, Laser Cystolitholapaxy, and urethral dilation, Right Kidney Selective Cytology, Right Ureteral Dilation, Right Ureteroscopy, Ureteral Tumor Biopsy, Right Ureteral Tumor Ablation, Right Ureteral tumor laser excision. Postoperatively he was found to have Mobitz 1 second-degree heart block in which hospitalist team and cardiology was consulted. Postop day 1 Doing well from urological standpoint, progressing as expected He is hemodynamically stable, afebrile Cardiology monitoring patient's arrhythmia-recommending monitoring through the afternoon, they are okay for discharge in the afternoon Labs reviewed-WBCs 7.34, hemoglobin 12.5, creatinine 2.07 No acute urological concerns overnight Catheter is draining morrell red without clots Nursing may flush catheter if needed Continue tamsulosin, as needed Pyridium as needed pain management for any stent discomfort Expected clinical symptom questions were answered Patient has outpatient follow-up with our service scheduled Patient will be discharged Admission and Anticipated Discharge Date Admission Date: January 19, 2025 Subjective 89-year-old male s/p on 01/19/2025 cystoscopy, with Bilateral Retrograde Pyelogram,Bilateral Ureteral Stent Insertion, Laser Cystolitholapaxy, and urethral dilation, Right Kidney Selective Cytology, Right Ureteral Dilation, Right Ureteroscopy, Ureteral Tumor Biopsy, Right Ureteral Tumor Ablation, Right Ureteral tumor laser excision He was found to be in Mobitz 1 second-degree heart block in PACU and was admitted due to heart arrhythmia. Patient resting comfortably in bed Catheter draining morrell red without clots-no flushing from nursing team overnight Some discomfort/dysuria around catheter insertion site-says this is his first catheter Denies fevers, chills, nausea, vomiting Denies flank or abdominal pain Cardiology at bedside stating they would like to observe patient through the afternoon due to recent heart block Review of Systems Constitutional: as per Subjective / HPI Genitourinary: + as per Subjective / HPI Physical Exam Constitutional: well developed and well nourished; no acute distress Respiratory: normal respiratory effort and able to speak in complete sentences Musculoskeletal: Extremities: extremities normal to inspection Psychiatric: Orientation: alert and oriented x 3 Genitourinary: Catheter draining morrell red Results & Data Vital Signs (Past 12 Hours) Vital Signs Temp Pulse Pulse Resp BP Pulse Ox O2 Del Method 01/20/25 11:03 37.2 C 78 18 127/73 95 Room Air 01/20/25 07:24 77 01/20/25 07:09 36.4 C L 79 18 111/66 94 Room Air 01/20/25 03:27 36.9 C 70 18 113/71 95 Room Air PG Care Time/CCT Total # of Minutes Spent Total Time Spent with Patient: Total time spent is greater than 50% in coordination of care (as documented) at patient's floor/unit and/or counseling patient: Coding Level of Care Code 97638 SUB INP/OBS CARE 50MIN Diagnoses Urothelial lesion N39.8 Hydronephrosis, unspecified hydronephrosis type N13.30 Hydronephrosis type: unspecified Bladder stone N21.0 Mobitz type 1 second degree AV block I44.1 (2) Hydronephrosis Hydronephrosis type: unspecified Qualified Code(s): N13.30 - Unspecified hydronephrosis
[2025-01-20 15:10] VITALS: BP 139/81; PULSE 79; TEMP 98.1; O2SAT 94
--- NOTE | 2025-01-24 07:37 | Discharge Summary ---
Date of Service January 24, 2025 Admission HPI Per Admitting Provider See H&P Admission Exam Per Admitting Provider See H&P Principal Diagnosis Obstructive Uropathy. Discharge Exam General: Alert in no acute distress. HEENT: Normocephalic Atraumatic. Inspection normal. Psychologic: Normal affect. Skin: [place] and Dry. No rashes or visible lesions. Abdomen: Soft Non-distended. No rebound or guarding. Discharge Data Allergies Allergy/AdvReac Type Severity Reaction Status Date / Time adhesive AdvReac skin tear Verified 01/23/25 13:23 Consultations 01/19/25 12:41 Consult Hospitalist Routine 01/19/25 13:57 Consult Cardiology Routine Procedures Performed Operation Date: 01/19/25 10:25 Actual Procedures p Cystoscopy,Bilateral Retrograde Pyelogram,Bilateral Ureteral Stent Insertion, (Bilateral) - Faustino Rahman DO s Laser Lithopaxy, Right Kidney Selective Cytology, Right Ureteral Dilation, Right Ureteroscopy, Basket Extraction of Stone, Right Ureteral Tumor Ablation and Biopsy(Bilateral) - Faustino Rahman DO Ordered Studies 01/19/25 10:25 FL retrograde includes kub Routine Hospital Course (1) Urothelial lesion: (2) Hydronephrosis: (3) Bladder stone: (4) Mobitz type 1 second degree AV block: Plan 89-year-old male s/p on 01/19/2025 cystoscopy, with Bilateral Retrograde Pyelogram,Bilateral Ureteral Stent Insertion, Laser Cystolitholapaxy, and urethral dilation, Right Kidney Selective Cytology, Right Ureteral Dilation, Right Ureteroscopy, Ureteral Tumor Biopsy, Right Ureteral Tumor Ablation, Right Ureteral tumor laser excision. Postoperatively he was found to have Mobitz 1 second-degree heart block in which hospitalist team and cardiology was consulted. Postop day 1 Doing well from urological standpoint, progressing as expected He is hemodynamically stable, afebrile Cardiology monitoring patient's arrhythmia-recommending monitoring through the afternoon, they are okay for discharge in the afternoon Labs reviewed-WBCs 7.34, hemoglobin 12.5, creatinine 2.07 No acute urological concerns overnight Catheter is draining morrell red without clots Nursing may flush catheter if needed Continue tamsulosin, as needed Pyridium as needed pain management for any stent discomfort Expected clinical symptom questions were answered Patient has outpatient follow-up with our service scheduled Patient will be discharged Total Time Total Time Spent Total Time Spent (In Minutes): 10 minutes Total Time Includes: Examination of the Patient, Discharge Planning, Medication Reconciliation and Communication With Other Providers Discharge Plan Discharge Items Patient Disposition: Home - Self-Care Reason For Visit: Unspecified Hydronephrosis, Urothelial Lesion Discharge Diagnosis: Same Activity: Per Instructions section Lifting: No more than 10 pounds Bathing: No limitations Sexual Activity: Wait until after follow-up appointment Exercise/Sports: Wait until after follow-up appointment Driving/Machine Use: if not taking pain medications Non-emergency contact: Primary Care Provider and Urologist Call non-emergency contact if: your symptoms worsen, your pain is not controlled and your temperature is above 101 Follow-up/Referrals: Faustino Rahman DO [Physician] - 02/01/25 11:00 am (Stent removal/pathology review) Margot Acevedo DO [Primary Care Provider] - Diet: Regular Addtl Attending Provider Instructions: The surgery you had was ureteroscopy and stent placement. Okay to resume regular diet. Please take all medications as prescribed and keep all follow-ups as scheduled. Please call our office at [phone] with any questions, concerns or need to reschedule appointments for any reason. We are happy to assist you. Medications: please resume your normal medications as previously prescribed. Antibiotics and medications for pain control were prescribed. For pain, it is ok to take tylenol alternating with ibuprofen. You can also take AZO, which can be purchased [id number] at the drugstore. Be aware this turns your urine a bright orange color. If you are prescribed a stronger medication you can take this according to instructions on the label. What to expect after your ureteroscopy and stone removal procedure: You may notice small pieces of stone or stone dust/gravel in your urine over the next few days. Drink plenty of liquids to help flush your system. You may notice some blood in your urine. As long as you are able to urinate, this is ok. You have a ureteral stent in place - this will need to be removed. As long as the stent is in place, you may see some blood in the urine. You may have pain in your side when you urinate. When to call [facility] at [phone]: Fever of 101F or higher Heavy bleeding Pain that is not controlled with medicine Uncontrolled vomiting Problems urinating or inability to urinate Pending Studies at Discharge: No Stand-Alone Forms: [facility] Medications and DC Order Prescriptions: New phenazopyridine [Pyridium] 200 mg tablet 200 mg PO Q8H PRN (Reason: pain) Qty: 10 0RF cephalexin 500 mg capsule 500 mg PO BID 7 Days Qty: 14 0RF Continued levothyroxine [Synthroid] 50 mcg tablet 50 mcg PO DAILY Qty: 90 3RF alfuzosin [Uroxatral] 10 mg tablet extended release 24 hr 10 mg PO DAILY Qty: 90 3RF Rx Instructions: administer after the same meal each day Ensure Plus 0.05-1.5 gram-kcal/mL liquid 1 ea PO DAILY Xeljanz XR 11 mg tablet extended release 24 hr 11 mg PO UD Rx Instructions: 11 mg po daily. No fill history available Prolia 60 mg/mL syringe 60 mg subcut DIRECTED Rx Instructions: last filled per history 06/07/24 180 day supply calcium carbonate-vitamin D3 200 mg (500 mg) -400 unit Tablet 2 tab PO QAM pantoprazole [Protonix] 40 mg tablet,delayed release (DR/EC) 40 mg PO DAILY Discontinued metoprolol succinate 50 mg tablet extended release 24 hr 50 mg PO DAILY Qty: 90 3RF Discharge Orders: Discharge Order (Routine); Ordered 01/20/25 Ordered By: Sheron Larson Admission Data Admit Date/Time: 01/19/25 12:41 Attending Provider: Faustino Rahman Admit Provider: Faustino Rahman Primary Care Provider: Margot Acevedo Other Providers: Alan Marroquin; Jt Escamilla; Mike Bo; Jaime Salazar; Gilmar Roberts; Milka Arias; Nita Murry; Sandy Jones; Susy Temple; Carrillo Jay; Mary Jo Dixon; Connor Camacho; Jt Moya; Dion Dobbs; Raymond Eisenberg; Diane Mccarty; Diane Melo; Sharon Cantu; Liz Manley; Carmen Reyes; Tammi Ta; Clint Stubbs; Dorian De La Fuente; Ole Mayen; Gloria Rogers; Marleen Gomez; Nitin Talamantes; Sahara Abdullahi; Jaime Bruner; Kacey Hernandez; Maricel Monique; Laverne Rico; Patrick Ogden; Paxton Torres; Abran Edwards; Ken López; Melissa Frederick; Corby Coker; Hloly Miller; Tavares Nails; Suzanne Levi; Guicho Puente; Milana Moyer; Ezra Jesus; Onur Montero; Zhou Mendez; Jai Ambrose; Suhail Carlos; Luis A Ponce Jr; Cayden Morin; Vianey Oseguera; Kenya Lau; Connor Molina; Connor Hsu; Eliz Sanchez; Michael Lema; Jackelyn Traylor; Michael Lee; Chris Diallo; Ciro Leigh; [facility]; [facility] Other Interventions: Discharge Summary Assessment (RN) Last Done: 01/20/25 14:34 Coding Level of Care Code 41423 IN/OBS DISCH 30 MIN/LESS Diagnoses Urothelial lesion N39.8 Hydronephrosis, unspecified hydronephrosis type N13.30 Hydronephrosis type: unspecified Bladder stone N21.0 Mobitz type 1 second degree AV block I44.1
== END 2025-01-20 17:29 | disposition home or self-care (01) ==
LOC: 2W 08:33 → ASU 08:33 → 2W 19:27

== ENCOUNTER 2025-02-02 19:34 | Inpatient (IN) ==
[2025-02-02 19:58] VITALS: TEMP 97.7
--- NOTE | 2025-02-02 20:34 | Emergency Department Note ---
Impression & Plan Acute hyponatremia Admission ED Provider Note HPI: History obtained from patient. The patient is a 89-year-old gentleman with history of recently diagnosed urothelial carcinoma, history of Mobitz type I AV block, BPH, presents emergency department with generalized weakness/fatigue. Patient had lab work done today that showed a sodium level of 117 and he was therefore referred to the ER for further assessment. On arrival here to the ED the patient is lethargic appearing, he is alert to verbal stimuli, he is able to follow commands. Patient states he does have some acute on chronic lower back pain but otherwise denies any focal complaint of pain. ROS: - Per HPI Differential Diagnosis: Sepsis, urinary tract infection, pneumonia, SIADH, acute dehydration, volume overload/CHF exacerbation, metastatic disease within the abdomen/pelvis, amongst other potential pathologies. *Outpatient medications and allergy history reviewed. 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 Lab work shows a significant leukocytosis at 32.4, hemoglobin is stable at 10.9, platelet count is elevated at 553, CMP shows multiple critical findings including a sodium of 117, patient's creatinine is elevated at 8.92 which does appear to be acute, BUN is 112, potassium is within normal limits. Lactic acid is also normal, bilirubin is elevated at 7.2 without any significant transaminitis, AST is mildly elevated at 73, ALT is normal at 52. Alk phos is 383. Troponin is mildly elevated at 23.3, patient denies any chest pain or shortness of breath. Procalcitonin is also high at 9.29. Amaya catheter was placed over concern for potential urinary tract obstruction given that the patient had recent ureteral stents and a history of urothelial cancer, this only drained about 200 cc of dark yellow urine. Urinalysis does appear to be consistent with infection, patient was ordered IV ceftriaxone. CT imaging of the abdomen pelvis was performed that shows good position of the patient's ureteral stents without any obvious pathology to attribute his renal failure to. CT imaging of the head does not show any evidence of any acute intracranial process. Patient's presentation was discussed with on-call urology, Dr. Mathis, given that the ureteral stents appear to be in good position urology is in agreement for consultation to follow if needed. Given the patient's critically low sodium, I did discuss the patient's presentation also with on-call nephrology, Dr. Cohen, his recommendation was to start the patient on hypertonic saline as a 100 cc bolus of 3% to assess response in the sodium level. The patient would not be considered a candidate for emergent dialysis given the critically low sodium level as this would result in rapid overcorrection. At this point I did reassess the patient, he initially was in agreement for management up to and including dialysis however he did change his mind while he was here in the ED. Patient stated he was having back pain and did not want any invasive procedures to be done. I did discuss the initiation of hypertonic saline with the patient as well as his at the bedside and his [id number], patient is adamant that he does not want any further medical treatments and he states he would like to be made comfort measures only. He is alert and oriented and he does appear to have capacity to make this decision at this time. He does arrive also with paperwork that states he is DNR/DNI and he does not want any invasive measures performed. Given this, the patient will be admitted to the hospitalist service for hospice consultation/comfort measures to be performed. The patient's at the bedside as well as his [id number] at the bedside are also in agreement to this plan. Patient was given an additional dose of IV morphine at this time, case was discussed with the on-call hospitalist, Dr. Moya, and the patient was placed for admission in stable condition. Consultants/Discussions held with other healthcare providers: - Nephrology, Dr. Cohen - Urology, Dr. Mathis - Hospitalist, Dr. Moya Disposition discussion held by myself with: - Patient, patient's at the bedside, patient's [id number] at the bedside Diagnosis: 1. Acute renal failure 2. Elevated BUN 3. Hyponatremia, acute 4. Elevated bilirubin, acute, nonspecific 5. Encounter for hospice care to be initiated/comfort measures only CODE STATUS Disposition: Admission Mac Carvalho DO Emergency Medicine Past Med/Surg History Problem List (Updated 02/03/25 @ 01:40 by Mac Carvalho DO) Acute hyponatremia (Acute) Comfort measures only status Gait instability Immunosuppression due to drug therapy Urothelial carcinoma Constipation Mobitz type 1 second degree AV block Urothelial lesion (Acute) Hydronephrosis (Acute) Bladder stone (Acute) LIOR (acute kidney injury) (Acute) 10/2024 [facility] admission 12/10 bladder/kidney stone; creatinine remains elevated from baseline Adenomatous colon polyp BPH with obstruction/lower urinary tract symptoms (Chronic) Vitamin D deficiency (Chronic) Supraventricular tachycardia (Chronic) no recurrence since 2006 ablation Osteoporosis, senile (Chronic) Hypothyroidism (Chronic) Hypercholesterolemia (Chronic) Esophageal stricture (Chronic) Acid reflux disease (Chronic) Basal cell carcinoma (BCC) (Acute) Rheumatoid arthritis (Acute) Medical History Encounter for pre-operative examination History of blood transfusion Osteoarthritis Dysphagia History of esophageal dilatation Diverticular disease Acute kidney injury superimposed on CKD CKD stage 3a, GFR 45-59 ml/min History of anesthesia reaction Hx of influenza Near syncope Hx of hypercholesterolemia Hx of basal cell carcinoma Acid reflux disease History of esophageal stricture Hypothyroidism Hx of supraventricular tachycardia Rheumatoid arthritis History of colon polyps BPH (benign prostatic hyperplasia) Bladder stone Hydronephrosis, right Surgical History Hx of basal cell carcinoma excision History of esophagogastroduodenoscopy (EGD) S/P cholecystectomy S/P colonoscopy H/O cardiac radiofrequency ablation Family History Mother Cancer Father Cirrhosis Denies family history of Ovarian cancer Prostate cancer Myocardial infarction Breast cancer Colorectal cancer Social History Smoking Status: Never smoker Tobacco Type: Cigarettes Age Started Using Tobacco: 24; Age Quit Using Tobacco: 27; packs per day: 3; Second Hand Exposure: No; Do You Dip or Chew Tobacco: No; Hx Alcohol Use: No Hx Substance Use: No Preferred Language: Latvian Communication Ability: Effective Visual Impairment: No Limitations Hearing Ability: Normal 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 Beliefs That Will Affect Care: None marital status: Current Living Situation: Spouse current occupational status: 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 How many Children do You have: 1 Feels Safe at Home: Yes Childhood Exposure to Second-Hand Smoke: No Diet: regular caffeine: Yes during the past year weight has: remained stable Dental Care, Regularly: No Physical Activity Frequency: Does not Exercise Seatbelt Use: always Sunscreen Use: No Do you think of yourself as: straight/heterosexual Gender Identity: Male Assistive Devices: None Allergies Allergies Allergy/AdvReac Type Severity Reaction Status Date / Time adhesive AdvReac skin tear Verified 01/31/25 14:22 Home Meds Home Medications Medication Instructions Recorded Confirmed tofacitinib 11 mg tablet,extended 11 mg PO DAILY 04/08/23 02/02/25 release 24 hr (Xeljanz XR) pantoprazole 40 mg tablet,delayed 40 mg PO DAILY 01/19/25 02/02/25 release (Protonix) acetaminophen 325 mg tablet 650 mg PO Q4 PRN PAIN 1-10 OR 02/02/25 02/02/25 FEVER >100.4 acetaminophen 500 mg tablet 500 mg PO Q4 PRN PAIN 1-10 OR 02/02/25 02/02/25 FEVER >100.4 acetaminophen 500 mg tablet 500 mg PO QID 3G 02/02/25 02/02/25 calcium 500 mg (as 2 tab PO DAILY 02/02/25 02/02/25 carbonate)-vitamin D3 10 mcg (400 unit) tablet (Calcium 500 + D) Previous Rx's Medication Instructions Recorded alfuzosin 10 mg tablet,extended 10 mg PO DAILY #90 tabs 04/13/24 release 24 hr (Uroxatral) levothyroxine 50 mcg tablet 50 mcg PO DAILY #90 tabs 08/15/24 (Synthroid) phenazopyridine 200 mg tablet 200 mg PO Q8H PRN pain #10 tabs 01/25/25 (Pyridium) polyethylene glycol 3350 17 17 g PO DAILY #238 grams 01/31/25 gram/dose oral powder (Miralax) Results & Data (ED) Vital Signs Vital Signs - 24 hr 02/02/25 19:56 02/02/25 20:18 02/02/25 20:39 Temperature 36.5 C Temperature Source Oral Pulse Rate 93 H 83 82 Pulse Rate from SpO2 Sensor 84 Respiratory Rate 18 22 Respiratory Effort / Characteristics Non-Labored Spontaneous Respiratory Depth Normal Blood Pressure 127/65 144/81 H Blood Pressure Mean 85 102 Blood Pressure Position Sitting Pulse Oximetry 95 96 Oxygen Delivery Method Room Air Sepsis Recent Fever Within 48 Hours No Sepsis New/Unexplained Change in Mental Status N/A Sepsis Action Taken by Nursing No Action Required 02/02/25 20:48 02/02/25 22:33 02/02/25 23:00 Temperature Temperature Source Pulse Rate 85 88 89 Pulse Rate from SpO2 Sensor 85 88 89 Respiratory Rate 24 29 H 19 Respiratory Effort / Characteristics Respiratory Depth Blood Pressure 140/76 152/83 H 145/88 H Blood Pressure Mean 97 106 101 Blood Pressure Position Pulse Oximetry 96 94 92 Oxygen Delivery Method Sepsis Recent Fever Within 48 Hours Sepsis New/Unexplained Change in Mental Status Sepsis Action Taken by Nursing 02/03/25 00:00 Temperature Temperature Source Pulse Rate 86 Pulse Rate from SpO2 Sensor 91 H Respiratory Rate 19 Respiratory Effort / Characteristics Respiratory Depth Blood Pressure 141/86 H Blood Pressure Mean 104 Blood Pressure Position Pulse Oximetry 92 Oxygen Delivery Method Sepsis Recent Fever Within 48 Hours Sepsis New/Unexplained Change in Mental Status Sepsis Action Taken by Nursing Laboratory Data 02/02/25 20:10 02/02/25 20:10 Lab Results 02/02/25 02/02/25 02/02/25 Range/Units 20:10 20:51 21:15 WBC 32.40 H* (4.8-10.8) K/ul RBC 3.62 L (4.70-6.10) M/uL Hgb 10.9 L (14.0-18.0) g/dl POC Hgb 11.9 L (14.0-18.0) g/dl Hct 30.6 L (42.0-52.0) % POC Hct 35 L (42-52) % MCV 84.5 (80.0-100.0) fL MCH 30.1 (25.0-34.0) pg MCHC 35.6 (32.0-36.0) g/dL RDW Std Deviation 41.0 (36.4-46.3) fL RDW Coeff of Ronaldo 13.2 (11.5-14.5) % Plt Count 553 H (130-400) K/uL MPV 9.0 L (9.4-12.4) fL Immature Gran % (Auto) 7.0 % Neut % (Auto) 86.2 % Lymph % (Auto) 2.4 % Geary % (Auto) 3.8 % Eos % (Auto) 0.2 % Baso % (Auto) 0.4 % Neut # (Auto) 27.97 H (1.40-6.50) K/uL Lymph # (Auto) 0.77 L (1.20-3.40) K/uL Geary # (Auto) 1.22 H (0.11-0.59) K/uL Eos # (Auto) 0.05 (0.00-0.50) K/uL Baso # (Auto) 0.13 (0.00-0.20) K/uL Immature Gran # (Auto) 2.26 H (0.01-0.20) K/uL POC Sodium 116 L* (135-144) mmol/L Sodium 117 L* (136-145) mmol/L POC Potassium 4.9 (3.3-5.0) mmol/L Potassium 4.9 (3.5-5.1) mmol/L POC Chloride 86 L (101-112) mmol/L Chloride 84 L (98-107) mmol/L Carbon Dioxide 20 L (21-32) mmol/L POC Total CO2 19 L (24-31) mmol/L Anion Gap 13 H (3-11) POC Anion Gap 17.0 (16-25) mmol/L POC BUN 109 H* (7-18) mg/dl BUN 112 H (6-23) mg/dl Creatinine 8.92 H* (0.6-1.4) mg/dl POC Creatinine 9.5 H* (0.6-1.3) mg/dl Est Cr Clr Drug Dosing 6.1 ml/min eGFR 5.21 BUN/Creatinine Ratio 12.6 (10-20) Glucose 138 H (70-99(Fasting)) mg/dl POC Glucose (other) 133 H (70-99) mg/dl Lactate (0.4-2.0) mmol/L Calcium 8.3 L (8.6-10.3) mg/dl POC Ioniz Calcium Landry 0.98 L (1.12-1.32) mmol/l Total Bilirubin 7.2 H (0.2-1.0) mg/dl AST 73 H (13-39) U/L ALT 52 (7-52) U/L Alkaline Phosphatase 383 H (34-104) U/L Troponin I High Sens (0-20) pg/ml Total Protein 6.1 (6.0-8.3) gm/dl Albumin 3.2 L (3.4-5.0) gm/dl Globulin 2.9 (2.5-4.0) gm/dl Albumin/Globulin Ratio 1.1 (0.9-2) Procalcitonin 9.29 H (0-0.5) ng/ml Urine Color Dark Yellow Urine Appearance Turbid A (Clear) Urine pH 5.5 (4.5-7.5) Ur Specific [place] 1.012 (1.000-1.030) Urine Protein 2+ H (Negative) Urine Glucose (UA) Negative (Negative) Urine Ketones Negative (Negative) Urine Blood 3+ H (Negative) Urine Nitrite Positive A (Negative) Urine Bilirubin 1+ H (Negative) Urine Urobilinogen Negative (Negative) Ur Leukocyte Esterase 3+ H (Negative) Urine WBC (Auto) >50 H (0-5) /hpf Urine RBC (Auto) >20 H (0-2) /hpf U Hyaline Cast (Auto) 3-5 H (0-2) /lpf U Epithel Cells (Auto) 3-5 H (0-2) /hpf Urine Bacteria (Auto) 4+ H (None Seen) Urine Mucus Present A (None Prsent) 02/02/25 Range/Units 21:29 WBC (4.8-10.8) K/ul RBC (4.70-6.10) M/uL Hgb (14.0-18.0) g/dl POC Hgb (14.0-18.0) g/dl Hct (42.0-52.0) % POC Hct (42-52) % MCV (80.0-100.0) fL MCH (25.0-34.0) pg MCHC (32.0-36.0) g/dL RDW Std Deviation (36.4-46.3) fL RDW Coeff of Ronaldo (11.5-14.5) % Plt Count (130-400) K/uL MPV (9.4-12.4) fL Immature Gran % (Auto) % Neut % (Auto) % Lymph % (Auto) % Geary % (Auto) % Eos % (Auto) % Baso % (Auto) % Neut # (Auto) (1.40-6.50) K/uL Lymph # (Auto) (1.20-3.40) K/uL Geary # (Auto) (0.11-0.59) K/uL Eos # (Auto) (0.00-0.50) K/uL Baso # (Auto) (0.00-0.20) K/uL Immature Gran # (Auto) (0.01-0.20) K/uL POC Sodium (135-144) mmol/L Sodium (136-145) mmol/L POC Potassium (3.3-5.0) mmol/L Potassium (3.5-5.1) mmol/L POC Chloride (101-112) mmol/L Chloride (98-107) mmol/L Carbon Dioxide (21-32) mmol/L POC Total CO2 (24-31) mmol/L Anion Gap (3-11) POC Anion Gap (16-25) mmol/L POC BUN (7-18) mg/dl BUN (6-23) mg/dl Creatinine (0.6-1.4) mg/dl POC Creatinine (0.6-1.3) mg/dl Est Cr Clr Drug Dosing ml/min eGFR BUN/Creatinine Ratio (10-20) Glucose (70-99(Fasting)) mg/dl POC Glucose (other) (70-99) mg/dl Lactate 1.2 (0.4-2.0) mmol/L Calcium (8.6-10.3) mg/dl POC Ioniz Calcium Landry (1.12-1.32) mmol/l Total Bilirubin (0.2-1.0) mg/dl AST (13-39) U/L ALT (7-52) U/L Alkaline Phosphatase (34-104) U/L Troponin I High Sens 23.3 H (0-20) pg/ml Total Protein (6.0-8.3) gm/dl Albumin (3.4-5.0) gm/dl Globulin (2.5-4.0) gm/dl Albumin/Globulin Ratio (0.9-2) Procalcitonin (0-0.5) ng/ml Urine Color Urine Appearance (Clear) Urine pH (4.5-7.5) Ur Specific [place] (1.000-1.030) Urine Protein (Negative) Urine Glucose (UA) (Negative) Urine Ketones (Negative) Urine Blood (Negative) Urine Nitrite (Negative) Urine Bilirubin (Negative) Urine Urobilinogen (Negative) Ur Leukocyte Esterase (Negative) Urine WBC (Auto) (0-5) /hpf Urine RBC (Auto) (0-2) /hpf U Hyaline Cast (Auto) (0-2) /lpf U Epithel Cells (Auto) (0-2) /hpf Urine Bacteria (Auto) (None Seen) Urine Mucus (None Prsent) Administered Medications Discontinued Medications Ceftriaxone Sodium (Rocephin) 2,000 mg in 50 mls @ 100 mls/hr IV NOW STA Stop: 02/02/25 21:26 Last Infusion: 02/02/25 22:26 Dose: Infused Documented By: Admin: 02/02/25 21:43 Dose: 100 mls/hr Documented By: KRISTINA Sodium Chloride (Hypertonic Saline 3%) 100 mls @ 600 mls/hr IV .Q10M ONE; Protocol Stop: 02/02/25 23:01 Last Admin: 02/02/25 23:56 Dose: Not Given Documented By: MICHELLE Miscellaneous (Stat Iv/Im) 1 each N/A NOW STA Stop: 02/02/25 22:53 Last Admin: 02/02/25 23:56 Dose: Not Given Documented By: MICHELLE Morphine Sulfate (Morphine Sulfate 4 Mg/Ml 1 Ml Carp\Vial) 4 mg IV NOW STA Stop: 02/02/25 23:19 Last Admin: 02/02/25 23:31 Dose: 4 mg Documented By: EDWARD Ondansetron HCl (Ondansetron Inj 2 Mg/Ml 2 Ml Vial) 4 mg IV NOW STA Stop: 02/02/25 20:56 Last Admin: 02/02/25 21:21 Dose: 4 mg Documented By: JULIO CESAR Ondansetron HCl (Ondansetron Inj 2 Mg/Ml 2 Ml Vial) 4 mg IV NOW STA Stop: 02/02/25 23:19 Last Admin: 02/02/25 23:28 Dose: 4 mg Documented By: EMB Imaging Data Radiologist's Impression: Head CT 02/02/25 20:33 Exam(s): CT HEAD Without Contrast EXAM: CT Head Without Intravenous Contrast CLINICAL HISTORY: Reason for exam: AMS. TECHNIQUE: Axial computed tomography images of the head/brain without intravenous contrast. CTDI is 37.42 mGy and DLP is 546.36 mGy-cm. Automated exposure control was utilized for the study. A dose lowering technique was utilized adhering to the principles of ALARA. COMPARISON: No relevant prior studies available. FINDINGS: Brain: No intracranial hemorrhage, mass-effect, or cerebral edema. Atrophy and chronic microvascular ischemic changes. 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 Ventricles: Unremarkable. Bones/joints: Unremarkable. No fracture. Soft tissues: Unremarkable. Sinuses: No acute sinusitis. Mastoid air cells: Unremarkable as visualized. IMPRESSION: No acute intracranial abnormality. Electronically signed by: Miguel Hodges MD 02/02/25 21:51 PM Abdomen/Pelvis CT 02/02/25 20:53 Exam(s): CT ABDOMEN + PELVIS Without Contrast EXAM: CT Abdomen and Pelvis Without Intravenous Contrast CLINICAL HISTORY: Reason for exam: renal failure, nausea. TECHNIQUE: Axial computed tomography images of the abdomen and pelvis without intravenous contrast. CTDI is 24.55 mGy and DLP is 1148.71 mGy-cm. Automated exposure control was utilized for the study. A dose lowering technique was utilized adhering to the principles of ALARA. COMPARISON: No relevant prior studies available. FINDINGS: ABDOMEN: Liver: Unremarkable. Gallbladder and bile ducts: Status post cholecystectomy. Pancreas: Unremarkable. Spleen: Unremarkable. Adrenals: Unremarkable. Kidneys and ureters: Bilateral double-J nephroureteral stents in place. No ureteral stone. Mild right and no significant left hydronephrosis. Stomach and bowel: Sigmoid diverticulosis without acute diverticulitis. PELVIS: Appendix: No findings to suggest acute appendicitis. Bladder: Trabeculated bladder. Reproductive: Prostatomegaly. ABDOMEN and PELVIS: Intraperitoneal space: Unremarkable. No free air. No significant fluid collection. Bones/joints: No acute fracture. Soft tissues: Unremarkable. Vasculature: Unremarkable. Lymph nodes: Unremarkable. IMPRESSION: 1. Bilateral double-J nephroureteral stents in place. No ureteral stone. Mild right and no significant left hydronephrosis. 2. Prostatomegaly. 3. Trabeculated bladder. 4. Sigmoid diverticulosis without acute diverticulitis. Electronically signed by: Miguel Hodges MD 02/02/25 21:50 PM Discharge Plan Visit Data Chief Complaint: Illness Stated Complaint: LOW SODIUM LEVEL ED Provider: Mac Carvalho Discharge Problem: Acute hyponatremia Patient Disposition: Admitted As Inpatient Discharge Instructions Interventions: ED Discharge Assessment Last Done: 02/03/25 01:21
[2025-02-02 20:50] LABS: Hematocrit (blood only) 30.6 % (42.0-52.0); Hemoglobin 10.9 g/dl (14.0-18.0); Mean Corpuscular Hemoglobin 30.1 pg (25.0-34.0); Mean Corpuscular Hgb Conc 35.6 g/dL (32.0-36.0); Mean Corpuscular Volume 84.5 fL (80.0-100.0); Platelet Count 553 K/uL (130-400); RDW Coefficient of Variation 13.2 % (11.5-14.5); Red Blood Count 3.62 M/uL (4.70-6.10)
[2025-02-02 20:51] LABS: Albumin Globulin Ratio 1.1 (0.9-2); Albumin Level 3.2 gm/dl (3.4-5.0); BUN Creatinine Ratio 12.6 (10-20); Bilirubin,Total 7.2 mg/dl (0.2-1.0); Calcium 8.3 mg/dl (8.6-10.3); Creatinine Clr Calc Pharmacy 6.1 ml/min; Globulin 2.9 gm/dl (2.5-4.0); Potassium 4.9 mmol/L (3.5-5.1); Total Protein 6.1 gm/dl (6.0-8.3)
[2025-02-02 21:04] LABS: iSTAT Creatinine 9.5 mg/dl (0.6-1.3); iSTAT Hemoglobin 11.9 g/dl (14.0-18.0); iSTAT Ionized Calcium 0.98 mmol/l (1.12-1.32); iSTAT Potassium 4.9 mmol/L (3.3-5.0)
[2025-02-02] MEDS: ONDANSETRON INJ 2 MG/ML 2 ML VIAL IV STA ×2 (21:21→23:28)
[2025-02-02] MEDS: cefTRIAXone SODIUM 2,000 MG/50 ML BAG IV STA (21:43)
--- NOTE | 2025-02-02 21:50 | CT Scan Report ---
Exam(s): CT ABDOMEN + PELVIS Without Contrast EXAM: CT Abdomen and Pelvis Without Intravenous Contrast CLINICAL HISTORY: Reason for exam: renal failure, nausea. TECHNIQUE: Axial computed tomography images of the abdomen and pelvis without intravenous contrast. CTDI is 24.55 mGy and DLP is 1148.71 mGy-cm. Automated exposure control was utilized for the study. A dose lowering technique was utilized adhering to the principles of ALARA. COMPARISON: No relevant prior studies available. FINDINGS: ABDOMEN: Liver: Unremarkable. Gallbladder and bile ducts: Status post cholecystectomy. Pancreas: Unremarkable. Spleen: Unremarkable. Adrenals: Unremarkable. Kidneys and ureters: Bilateral double-J nephroureteral stents in place. No ureteral stone. Mild right and no significant left hydronephrosis. Stomach and bowel: Sigmoid diverticulosis without acute diverticulitis. PELVIS: Appendix: No findings to suggest acute appendicitis. Bladder: Trabeculated bladder. Reproductive: Prostatomegaly. ABDOMEN and PELVIS: Intraperitoneal space: Unremarkable. No free air. No significant fluid collection. Bones/joints: No acute fracture. Soft tissues: Unremarkable. Vasculature: Unremarkable. Lymph nodes: Unremarkable. IMPRESSION: 1. Bilateral double-J nephroureteral stents in place. No ureteral stone. Mild right and no significant left hydronephrosis. 2. Prostatomegaly. 3. Trabeculated bladder. 4. Sigmoid diverticulosis without acute diverticulitis. Electronically signed by: Miguel Hodges MD 02/02/25 21:50 PM
--- NOTE | 2025-02-02 21:52 | CT Scan Report ---
Exam(s): CT HEAD Without Contrast EXAM: CT Head Without Intravenous Contrast CLINICAL HISTORY: Reason for exam: AMS. TECHNIQUE: Axial computed tomography images of the head/brain without intravenous contrast. CTDI is 37.42 mGy and DLP is 546.36 mGy-cm. Automated exposure control was utilized for the study. A dose lowering technique was utilized adhering to the principles of ALARA. COMPARISON: No relevant prior studies available. FINDINGS: Brain: No intracranial hemorrhage, mass-effect, or cerebral edema. Atrophy and chronic microvascular ischemic changes. 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 Ventricles: Unremarkable. Bones/joints: Unremarkable. No fracture. Soft tissues: Unremarkable. Sinuses: No acute sinusitis. Mastoid air cells: Unremarkable as visualized. IMPRESSION: No acute intracranial abnormality. Electronically signed by: Miguel Hodges MD 02/02/25 21:51 PM
[2025-02-02 22:50] LABS: Basophils # (auto) 0.13 K/uL (0.00-0.20); Basophils % (auto) 0.4 %; Eosinophils # (auto) 0.05 K/uL (0.00-0.50); Eosinophils % (auto) 0.2 %; Immature Granulocytes # (auto) 2.26 K/uL (0.01-0.20); Lymphocytes # (auto) 0.77 K/uL (1.20-3.40); Lymphocytes % (auto) 2.4 %; Monocytes # (auto) 1.22 K/uL (0.11-0.59); Monocytes % (auto) 3.8 %; Neutrophils # (auto) 27.97 K/uL (1.40-6.50); Neutrophils % (auto) 86.2 %
[2025-02-02 23:23] LABS: Appearance Urine Turbid (Clear); Bacteria Urine Automated 4+ (None Seen); Bilirubin Urine 1+ (Negative); Blood Urine 3+ (Negative); Color Urine Dark Yellow; Glucose Urine UA Negative (Negative); Ketones Urine Negative (Negative); Leukocyte Esterase Urine 3+ (Negative); Mucus Urine Present (None Prsent); Nitrite Urine Positive (Negative); Protein Urine 2+ (Negative); RBC Urine Automated >20 /hpf (0-2); Specific Gravity Urine 1.012 (1.000-1.030); Urobilinogen Urine Negative (Negative); WBC Urine Automated >50 /hpf (0-5); pH Urine 5.5 (4.5-7.5)
[2025-02-02] MEDS: MoRPHine SULFATE 4 MG/ML 1 ML CARP\\VIAL IV STA (23:31)
[2025-02-02] MEDS: SODIUM CHLORIDE 3 % 100 ML IV ONE (23:56)
[2025-02-02] MEDS: STAT IV/IM STA (23:56)
[2025-02-03 00:04] VITALS: O2SAT 92
--- NOTE | 2025-02-03 00:06 | History & Physical Report ---
Date of Service February 03, 2025 Assessment & Plan (1) Comfort measures only status: (2) Acute hyponatremia: (3) Urothelial carcinoma: (4) Immunosuppression due to drug therapy: (5) LIOR (acute kidney injury): Plan 89 year old male with recently diagnosed urothelial carcinoma presents to the ER with outpatient labs showing sodium 117. Patient wishes to be made for comfort care early in the emergency room. #Comfort care measures / multiorgan failure / hyponatremia Patient and family requested comfort care measures to ER provider. Discussed current stable vital signs but currently appears to be in multi-organ failure with no specific diagnosis as a cause of this per suspected sepsis. Dilaudid (due to renal failure) for shortness of breath and pain Ativan for agitation Ondansetron first-line, haloperidol second line for nausea vomiting Glycopyrrolate first-line, hyoscyamine second line, atropine third line for secretions Chlorpromazine first-line, baclofen second line for hiccups Can stop all his regular medications but will continue pantoprazole for reflux VTE Prophylaxis - no need due to comfort care measures Disposition - admit to med/surg History of Present Illness Chief Complaint: Hyponatremia Primary Care Provider: DO Abraham Cochran ([place]) Travon is an 89 year old male with recently diagnosed urothelial carcinoma who presents to the ER with low sodium and fatigue. He was diagnosed with multi organ failure in the ER and wished to be made for comfort care only. Allergies Allergy/AdvReac Type Severity Reaction Status Date / Time adhesive AdvReac skin tear Verified 01/31/25 14:22 Home Medications Medication Instructions Recorded Confirmed Type tofacitinib 11 mg tablet,extended 11 mg PO DAILY 04/08/23 02/02/25 History release 24 hr (Xeljanz XR) alfuzosin 10 mg tablet,extended 10 mg PO DAILY #90 tabs 04/13/24 02/02/25 Rx release 24 hr (Uroxatral) levothyroxine 50 mcg tablet 50 mcg PO DAILY #90 tabs 08/15/24 02/02/25 Rx (Synthroid) pantoprazole 40 mg tablet,delayed 40 mg PO DAILY 01/19/25 02/02/25 History release (Protonix) phenazopyridine 200 mg tablet 200 mg PO Q8H PRN pain #10 tabs 01/25/25 02/02/25 Rx (Pyridium) polyethylene glycol 3350 17 17 g PO DAILY #238 grams 01/31/25 02/02/25 Rx gram/dose oral powder (Miralax) acetaminophen 325 mg tablet 650 mg PO Q4 PRN PAIN 1-10 OR 02/02/25 02/02/25 History FEVER >100.4 acetaminophen 500 mg tablet 500 mg PO Q4 PRN PAIN 1-10 OR 02/02/25 02/02/25 History FEVER >100.4 acetaminophen 500 mg tablet 500 mg PO QID 3G 02/02/25 02/02/25 History calcium 500 mg (as 2 tab PO DAILY 02/02/25 02/02/25 History carbonate)-vitamin D3 10 mcg (400 unit) tablet (Calcium 500 + D) Past Med/Surg History Problem List (Updated 02/03/25 @ 05:00 by Jt Moya MD) LIOR (acute kidney injury) Acute hyponatremia (Acute) Comfort measures only status Gait instability Immunosuppression due to drug therapy Urothelial carcinoma Constipation Mobitz type 1 second degree AV block Urothelial lesion (Acute) Hydronephrosis (Acute) Bladder stone (Acute) LIOR (acute kidney injury) (Acute) 10/2024 [facility] admission 12/10 bladder/kidney stone; creatinine remains elevated from baseline Adenomatous colon polyp BPH with obstruction/lower urinary tract symptoms (Chronic) Vitamin D deficiency (Chronic) Supraventricular tachycardia (Chronic) no recurrence since 2006 ablation Osteoporosis, senile (Chronic) Hypothyroidism (Chronic) Hypercholesterolemia (Chronic) Esophageal stricture (Chronic) Acid reflux disease (Chronic) Basal cell carcinoma (BCC) (Acute) Rheumatoid arthritis (Acute) Medical History Encounter for pre-operative examination History of blood transfusion Osteoarthritis Dysphagia History of esophageal dilatation Diverticular disease Acute kidney injury superimposed on CKD CKD stage 3a, GFR 45-59 ml/min History of anesthesia reaction Hx of influenza Near syncope Hx of hypercholesterolemia Hx of basal cell carcinoma Acid reflux disease History of esophageal stricture Hypothyroidism Hx of supraventricular tachycardia Rheumatoid arthritis History of colon polyps BPH (benign prostatic hyperplasia) Bladder stone Hydronephrosis, right Surgical History Hx of basal cell carcinoma excision History of esophagogastroduodenoscopy (EGD) S/P cholecystectomy S/P colonoscopy H/O cardiac radiofrequency ablation Family History Mother Cancer Father Cirrhosis Denies family history of Ovarian cancer Prostate cancer Myocardial infarction Breast cancer Colorectal cancer Social History Smoking Status: Unknown if ever smoked Tobacco Type: Cigarettes Age Started Using Tobacco: 24; Age Quit Using Tobacco: 27; packs per day: 3; Second Hand Exposure: No; Do You Dip or Chew Tobacco: No; Hx Alcohol Use: No Hx Substance Use: No Preferred Language: Kyrgyz Communication Ability: Effective Visual Impairment: No Limitations Hearing Ability: Normal Photographic Restorer Required: No Beliefs That Will Affect Care: None marital status: Current Living Situation: Spouse Current Living Situation Comment: comfort care current occupational status: 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 How many Children do You have: 1 Feels Safe at Home: No Is there a partner from a previous relationship who is making you feel unsafe now?: No Safety Concerns: Feels Safe At This Time Childhood Exposure to Second-Hand Smoke: No Diet: regular caffeine: Yes during the past year weight has: remained stable Dental Care, Regularly: No Physical Activity Frequency: Does not Exercise Seatbelt Use: always Sunscreen Use: No Do you think of yourself as: straight/heterosexual Gender Identity: Male Assistive Devices: Hospital Bed and Walker Assistive Devices Comment: comfort care Physical Exam 2 Constitutional: no acute distress Skin: + jaundice Results & Data Results & Data Vital Signs (Past 12 Hours) Vital Signs Temp Pulse Resp BP Pulse Ox O2 Del Method 02/03/25 00:00 86 19 141/86 H 92 02/02/25 23:00 89 19 145/88 H 92 02/02/25 22:33 88 29 H 152/83 H 94 02/02/25 20:48 85 24 140/76 96 02/02/25 20:39 82 02/02/25 20:18 83 22 144/81 H 96 02/02/25 19:56 36.5 C 93 H 18 127/65 95 Room Air Laboratory Results Abnormal lab results 02/02/25 02/02/25 02/02/25 Range/Units 20:10 20:51 21:15 WBC 32.40 H* (4.8-10.8) K/ul RBC 3.62 L (4.70-6.10) M/uL Hgb 10.9 L (14.0-18.0) g/dl POC Hgb 11.9 L (14.0-18.0) g/dl Hct 30.6 L (42.0-52.0) % POC Hct 35 L (42-52) % Plt Count 553 H (130-400) K/uL MPV 9.0 L (9.4-12.4) fL Neut # (Auto) 27.97 H (1.40-6.50) K/uL Lymph # (Auto) 0.77 L (1.20-3.40) K/uL [place] # (Auto) 1.22 H (0.11-0.59) K/uL Immature Gran # (Auto) 2.26 H (0.01-0.20) K/uL POC Sodium 116 L* (135-144) mmol/L Sodium 117 L* (136-145) mmol/L POC Chloride 86 L (101-112) mmol/L Chloride 84 L (98-107) mmol/L Carbon Dioxide 20 L (21-32) mmol/L POC Total CO2 19 L (24-31) mmol/L Anion Gap 13 H (3-11) POC BUN 109 H* (7-18) mg/dl BUN 112 H (6-23) mg/dl Creatinine 8.92 H* (0.6-1.4) mg/dl POC Creatinine 9.5 H* (0.6-1.3) mg/dl Glucose 138 H (70-99(Fasting)) mg/dl POC Glucose (other) 133 H (70-99) mg/dl Calcium 8.3 L (8.6-10.3) mg/dl POC Ioniz Calcium Landry 0.98 L (1.12-1.32) mmol/l Total Bilirubin 7.2 H (0.2-1.0) mg/dl AST 73 H (13-39) U/L Alkaline Phosphatase 383 H (34-104) U/L Troponin I High Sens (0-20) pg/ml Albumin 3.2 L (3.4-5.0) gm/dl Procalcitonin 9.29 H (0-0.5) ng/ml Urine Appearance Turbid A (Clear) Urine Protein 2+ H (Negative) Urine Blood 3+ H (Negative) Urine Nitrite Positive A (Negative) Urine Bilirubin 1+ H (Negative) Ur Leukocyte Esterase 3+ H (Negative) Urine WBC (Auto) >50 H (0-5) /hpf Urine RBC (Auto) >20 H (0-2) /hpf U Hyaline Cast (Auto) 3-5 H (0-2) /lpf U Epithel Cells (Auto) 3-5 H (0-2) /hpf Urine Bacteria (Auto) 4+ H (None Seen) Urine Mucus Present A (None Prsent) 02/02/25 Range/Units 21:29 WBC (4.8-10.8) K/ul RBC (4.70-6.10) M/uL Hgb (14.0-18.0) g/dl POC Hgb (14.0-18.0) g/dl Hct (42.0-52.0) % POC Hct (42-52) % Plt Count (130-400) K/uL MPV (9.4-12.4) fL Neut # (Auto) (1.40-6.50) K/uL Lymph # (Auto) (1.20-3.40) K/uL [place] # (Auto) (0.11-0.59) K/uL Immature Gran # (Auto) (0.01-0.20) K/uL POC Sodium (135-144) mmol/L Sodium (136-145) mmol/L POC Chloride (101-112) mmol/L Chloride (98-107) mmol/L Carbon Dioxide (21-32) mmol/L POC Total CO2 (24-31) mmol/L Anion Gap (3-11) POC BUN (7-18) mg/dl BUN (6-23) mg/dl Creatinine (0.6-1.4) mg/dl POC Creatinine (0.6-1.3) mg/dl Glucose (70-99(Fasting)) mg/dl POC Glucose (other) (70-99) mg/dl Calcium (8.6-10.3) mg/dl POC Ioniz Calcium [place] (1.12-1.32) mmol/l Total Bilirubin (0.2-1.0) mg/dl AST (13-39) U/L Alkaline Phosphatase (34-104) U/L Troponin I High Sens 23.3 H (0-20) pg/ml Albumin (3.4-5.0) gm/dl Procalcitonin (0-0.5) ng/ml Urine Appearance (Clear) Urine Protein (Negative) Urine Blood (Negative) Urine Nitrite (Negative) Urine Bilirubin (Negative) Ur Leukocyte Esterase (Negative) Urine WBC (Auto) (0-5) /hpf Urine RBC (Auto) (0-2) /hpf U Hyaline Cast (Auto) (0-2) /lpf U Epithel Cells (Auto) (0-2) /hpf Urine Bacteria (Auto) (None Seen) Urine Mucus (None Prsent) Diagnostic Findings CT HEAD Without Contrast EXAM: CT Head Without Intravenous Contrast CLINICAL HISTORY: Reason for exam: AMS. TECHNIQUE: Axial computed tomography images of the head/brain without intravenous contrast. CTDI is 37.42 mGy and DLP is 546.36 mGy-cm. Automated exposure control was utilized for the study. A dose lowering technique was utilized adhering to the principles of ALARA. COMPARISON: No relevant prior studies available. FINDINGS: Brain: No intracranial hemorrhage, mass-effect, or cerebral edema. Atrophy and chronic microvascular ischemic changes. 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 Ventricles: Unremarkable. Bones/joints: Unremarkable. No fracture. Soft tissues: Unremarkable. Sinuses: No acute sinusitis. Mastoid air cells: Unremarkable as visualized. IMPRESSION: No acute intracranial abnormality. CT ABDOMEN + PELVIS Without Contrast CLINICAL HISTORY: Reason for exam: renal failure, nausea. TECHNIQUE: Axial computed tomography images of the abdomen and pelvis without intravenous contrast. CTDI is 24.55 mGy and DLP is 1148.71 mGy-cm. Automated exposure control was utilized for the study. A dose lowering technique was utilized adhering to the principles of ALARA. COMPARISON: No relevant prior studies available. FINDINGS: ABDOMEN: Liver: Unremarkable. Gallbladder and bile ducts: Status post cholecystectomy. Pancreas: Unremarkable. Spleen: Unremarkable. Adrenals: Unremarkable. Kidneys and ureters: Bilateral double-J nephroureteral stents in place. No ureteral stone. Mild right and no significant left hydronephrosis. Stomach and bowel: Sigmoid diverticulosis without acute diverticulitis. PELVIS: Appendix: No findings to suggest acute appendicitis. Bladder: Trabeculated bladder. Reproductive: Prostatomegaly. ABDOMEN and PELVIS: Intraperitoneal space: Unremarkable. No free air. No significant fluid collection. Bones/joints: No acute fracture. Soft tissues: Unremarkable. Vasculature: Unremarkable. Lymph nodes: Unremarkable. IMPRESSION: 1. Bilateral double-J nephroureteral stents in place. No ureteral stone. Mild right and no significant left hydronephrosis. 2. Prostatomegaly. 3. Trabeculated bladder. 4. Sigmoid diverticulosis without acute diverticulitis. Medications Administered ER medications given: Ondansetron 4 mg IV Ceftriaxone 2000 mg IV Hypertonic saline 3% 100 mL Morphine 4 mg IV Ondansetron 4 mg IV Code Status & VTE Plan Code Status DNR/DNI VTE Prophylaxis Plan VTE Prophylaxis will be ordered: No PG Care Time/CCT Total # of Minutes Spent Total Time Spent with Patient: Total time spent is greater than 50% in coordination of care (as documented) at patient's floor/unit and/or counseling patient: Coding Level of Care Code 35423 INT INP/OBS CARE 3/75MIN Diagnoses Comfort measures only status Z51.5 Acute hyponatremia E87.1 Urothelial carcinoma C68.9 Immunosuppression due to drug therapy D84.821; Z79.899 LIOR (acute kidney injury) N17.9
[2025-02-03 01:21] VITALS: BP 106/74; PULSE 96; RESP 30
[2025-02-03] MEDS ORDERED: BACLOFEN 10 MG TAB PO PRN (01:38)
[2025-02-03] MEDS ORDERED: HALOPERIDOL ORAL SOLN 2 MG/ML PO PRN (01:38)
[2025-02-03] MEDS ORDERED: HYOSCYAMINE SULFATE 0.125 MG TAB SL PRN (01:38)
[2025-02-03] MEDS ORDERED: chlorproMAZINE HCL 25 MG TAB PO PRN (01:38)
[2025-02-03] MEDS: HYDROmorphone INJ 0.5 MG/0.5 ML SYR IV PRN (02:02)
[2025-02-03] MEDS: ONDANSETRON INJ 2 MG/ML 2 ML VIAL IV PRN (02:02)
[2025-02-03] MEDS: LORazepam 2 MG/1 ML VIAL IV PRN (02:02)
--- OUTSIDE RECORDS SUMMARY | 2025-02-03 03:00 | External Medical Summary ---
Author Name Unknown Address Unknown Organization K1F:LABORATORY [facility] - [address] [place] [address] Laboratory Report Ordering Provider Test Date Status JAYASHREE NARANJO 02/02/2025 11:00:00 Final Observation Date Value Abnormality Reference (Units ) Status Lipase 02/02/2025 11:00:00 87 Above high normal 13 -60 (U/L) Final Performing Location LABORATORY [facility] - [address] [place] [address]
--- OUTSIDE RECORDS SUMMARY | 2025-02-03 03:00 | External Medical Summary | Summary of Care ---
Author Name Unknown Organization [facility] Address [address] [place] [address] Phone [phone] Care Team Providers Care Conductor And Engineer Name Role Phone Margot Acevedo DO Primary Care Provider + Reason for Visit * Reason Comments Outpatient Testing Encounter Details Date Type Department Care Team (Late st Contact Info) Description 02/02/2025 1:20 PM EDT Laboratory Laboratory, [place] [address] [place] [id number] [facility] [address] [place] [id number] Abnormal results of liver function studies Allergies No known active allergiesdocumented as of this encounter (statuses as of 02/02/2025) Medications LEVOTHYROXINE SODIUM 25 MCG OR TABS Take 25 mcg by mouth daily first thing in the morning. Active PROTONIX 40 MG PO TBEC Take 40 mg by mouth daily. Active Metoprolol Succinate ER 25 MG Oral Tablet Extended Release 24 Hour (toPROL XL) Take 25 mg by mouth daily. Active Viactiv Calcium Plus D 650-12.5-40 MG-MCG Oral Tablet Chewable (Calcium-Vitamin D-Vitamin K) Take 1 Each by mouth 2 times a day. Active Rinvoq 15 MG Oral Tablet Extended Release 24 Hour (Upadacitinib ER) Take 15 mg by mouth every afternoon. Active Ferrous Sulfate 325 (65 Fe) MG Oral Tablet (Feosol) Take 1 Tab by mouth 2 times a day. 60 Tab 08/22/2021 Active Polyethylene Glycol 3350 17 GM Oral Packet (Miralax) Take 1 Packet by mouth daily. 14 Each 08/23/2021 Active Docusate Sodium 100 MG Oral Capsule (Colace) Take 1 Cap by mouth 2 times a day. 10 Cap 08/22/2021 Active documented as of this encounter (statuses as of 02/02/2025) Active Problems Problem Noted Date Diagnosed Date Iron deficiency anemia 08/22/2021 Cyst of right kidney 08/21/2021 Lower GI bleed 08/20/2021 Immunocompromised patient 08/12/2021 Acquired hypothyroidism 08/12/2021 Acute blood loss anemia 11/11/2020 Acute cystitis without hematuria 11/11/2020 BPH with obstruction/lower urinary tract symptom s 11/11/2020 Renal lesion 11/08/2020 Overview (11/10/2020): Cyst w/proteinaceous material on US Rheumatoid arthritis Overview (01/22/2016): ICD-10 update of inactive term Elevated prostate specific antigen (PSA) documented as of this encounter (statuses as of 02/02/2025) Resolved Problems Problem Noted Date Diagnosed Date Resolved Date Lower GI bleed 08/20/2021 08/20/2021 GI bleed 08/12/2021 08/20/2021 Acute GI bleeding 11/11/2020 11/13/2020 Acute lower GI bleeding 11/08/2020/12/2020 Syncope 11/08/2020 11/10/2020 GIB (gastrointestinal bleeding) 11/08/2020 11/10/2020 Stricture and stenosis of esophagus 11/10/2020 documented as of this encounter (statuses as of 02/02/2025) Immunizations Name Administration Dates Next Due Pneumococcal Polysaccharide PPV23 (Pneumovax) 08/12/2005 Seasonal Influenza Vac., MDV , IM, 0.5 mL (Fluzone) 07/26/2013,06/09/2012,07/31/2011,07/25 documented as of this encounter Social History Tobacco Use Types Packs/Day Years Used Date Smoking Tobacco: Former Smokeless Tobacco: Never Alcohol Use Standard Drinks/Week Comments Not Currently 0 (1 standard drink = 0.6 oz pur e alcohol) Occasionally Sex and Gender Information Value Date Recorded Sex Assigned at Not on file Legal Sex Male 6:47 AM EST Gender Identity Not on file Sexual Orientation Not on file documented as of this encounter Functional Status * Are you deaf or do you have serious difficulty hearing? Answer Date of Assessment Author No 11/10/2020 9:28 PM Stella Aguilar RN * Are you blind or do you have serious difficulty seeing, even when wearing glasses? Answer Date of Assessment Author No 11/10/2020 9:28 PM Stella Aguilar RN * Do you have serious difficulty walking or climbing stairs? (5 years old or older) Answer Date of Assessment Author No 11/10/2020 9:28 PM Stella Aguilar RN * Do you have difficulty dressing or bathing? (5 years old or older) Answer Date of Assessment Author No 11/10/2020 9:28 PM Stella Aguilar RN * Because of a physical, mental, or emotional condition, do you have difficulty doing errands alone such as visiting a doctor’s office or shopping? (15 years old or older) Answer Date of Assessment Author No 11/10/2020 9:28 PM Stella Aguilar RN documented as of this encounter Mental Status * Because of a physical, mental, or emotional condition, do you have serious difficulty concentrating, remembering, or making decisions? (5 years old or older) Answer Entry Date Author No 11/10/2020 9:28 PM Stella Aguilar RN documented in this encounter Plan of Treatment Health Maintenance Due Date Last Done Comments Depression Screening 1947 DTap/Tdap Vaccines (1 - Tdap) 1954 Zoster Vaccines (1 of 2) 1985 Pneumococcal Vaccine: 50+ Years (2 of 2 - PCV) 08/12/2006 08/12/2005 TSH 08/12/2022 08/12/2021 COVID-19 Vaccine (1 - 2023- season) 2024 Influenza Vaccine (FLU shot) (Season Ended) 2025 07/26/2013, 06/09/2012, 07/31/2011, Additional history exists HPV (Gardasil) Vaccine Aged Out No lo nger eligible based on patient's age to complete this topic Hepatitis B Vaccine Aged Out No longe r eligible based on patient's age to complete this topic MENINGOCOCCAL (MENACTRA/MENVEO) Aged Out No longer eligible based on patient's age to complete this topic Meningitis B Vaccine (Bexsero/Trumemba) Aged Out No longer eligible based on patient's age to complete this topic documented as of this encounter Medical Devices Implanted Type Area Film Cleaner Device Identifier Shelf Expiration Date Model / Serial / Lot Clip Quick 2.8mm 230cm - [id number] Implanted:Qty: 1 on 11/09/2020 by Margaret Tipton MD at OR [facility] N/A: Colon [employer] 11/18/2022 [id number] / / documented as of this encounter Procedures Procedure Name Priority Date/Time Associated Diagnosis Comments COMPREHENSIVE METABOLIC PANEL Routine 02/02/2025 11:00 AM EDT Abnormal results of liver function studies LIPASE Routine 02/02/2025 11:00 AM EDT Abnormal results of liver function studies documented in this encounter Results * (ABNORMAL) LIPASE (02/02/2025 11:00 AM EDT) Lipase 87(H) 13 - 60 U/L 02/02/2025 5:06 PM EDT LABORATORY [facility] Blood Venous blood specimen / Unknown Venipuncture / Unknown 02/02/2025 11:00 AM EDT 02/02/2025 1:25 PM EDT Bozena Irwin PA-C LAB BLOOD ORDERABLES Fin al Result LABORATORY [address] [address] * (ABNORMAL) COMPREHENSIVE METABOLIC PANEL (02/02/2025 11:00 AM EDT) BUN 98(H) 6 - 20 mg/dL 02/02/2025 5:17 PM EDT LABORATORY [facility] CREATININE 8.1(H) 0.6 - 1.2 mg/dL 02/02/2025 5:17 PM EDT LAB[facility]AT[facility] EGFR 6(L) >=60 mL/min 02/02/2025 5:17 PM EDT LAB[facility] Comment:eGFR is calculated b ased on the CKD-EPI 2020 equation. SODIUM 117(LL) 135 - 146 mmol/L 02/02/2025 5:17 PM EDT LAB[facility] Comment:Results rechecked POTASSIUM 5.7(H) 3.5 - 5.1 mmol/L 02/02/2025 5:17 PM EDT LAB[facility] CHLORIDE 82(L) 98 - 107 mmol/L 02/02/2025 5:17 PM EDT [facility] CO2 16(L) 22 - 32 mmol/L 02/02/2025 5:17 PM EDT [facility] ANION GAP 19(H) 7 - 15 mmol/L 02/02/2025 5:17 PM EDT [facility] GLUCOSE 88 70 - 120 mg/dL 02/02/2025 5:17 PM EDT [facility] Albumin 2.8(L) 3.8 - 5.0 g/dL 02/02/2025 5:17 PM EDT [facility] AST 82(H) 10 - 50 U/L 02/02/2025 5:17 PM EDT [facility] Alkaline Phosphatase 368(H) 35 - 130 U/L 02/02/2025 5:17 PM EDT [facility] Bilirubin, Total 5.2(H) <=1.2 mg/dL 02/02/2025 5:17 PM EDT LAB[facility] CALCIUM 7.7(L) 8.4 - 10.2 mg/dL 02/02/2025 5:17 PM EDT [facility] Protein 4.9(L) 6.0 - 8.3 g/dL 02/02/2025 5:17 PM EDT [facility] ALT 52(H) 10 - 50 U/L 02/02/2025 5:17 PM EDT LAB[facility] Blood Venous blood specimen / Unknown Venipuncture / Unknown 02/02/2025 11:00 AM EDT 02/02/2025 1:25 PM EDT Bozena Irwin PA-C LAB BLOOD ORDERABLES Fin al Result LABORATORY [facility] [address] [place] [address] documented in this encounter Visit Diagnoses Diagnosis Abnormal results of liver function studies Nonspecific abnormal results of liver function study documented in this encounter Advance Directives * Full Code (Latest Code Status on File) Date Activated Date Inactivated Comments 08/20/2021 7:01 PM 08/22/2021 8:46 PM This order r eflects the patients wishes and were consensually agreed upon. Question Answer Comments Discussion of Advance Directives occurred with: Patient * Full Code Date Activated Date Inactivated Comments 08/12/2021 8:35 AM 08/16/2021 5:53 PM This order reflects the patients wishes and were consensually agreed upon. Question Answer Comments Discussion of Advance Directives occurred with: Patient * Full Code Date Activated Date Inactivated Comments 11/10/2020 10:31 PM 11/14/2020 5:13 PM This order reflects the patients wishes and were consensually agreed upon. Question Answer Comments Discussion of Advance Directives occurred with: Patient * Full Code Date Activated Date Inactivated Comments 11/10/2020 9:41 PM 11/10/2020 10:31 PM This order reflects the patients wishes and were consensually agreed upon. Question Answer Comments Discussion of Advance Directives occurred with: Not Discussed * Full Code Date Activated Date Inactivated Comments 11/08/2020 5:54 PM 11/10/2020 4:56 PM This order r eflects the patients wishes and were consensually agreed upon. Question Answer Comments Discussion of Advance Directives occurred with: Patient Care Teams Conductor And Engineer Relationship Specialty Start Date End Date [facility] [address] [facility] [address] [facility] - General Family Medicine 12/02/24 documented as of this encounter
--- OUTSIDE RECORDS SUMMARY | 2025-02-03 03:00 | External Medical Summary ---
Author Name Unknown Address Unknown Organization K1F:LABORATORY [facility] - [address] [facility] [address] [place] [address] Laboratory Report Ordering Provider Test Date Status JAYASHREE NARANJO 02/02/2025 11:00:00 Final Observation Date Value Abnormality Reference (Units ) Status BUN 02/02/2025 11:00:00 98 Above high normal 6-20 (mg/dL) Final Creatinine 02/02/2025 11:00:00 8.1 Above high normal 0.6-1.2 (mg/dL) Final Glomerular filtration rate/1.73 sq M.predicted [Volume Rate/Area] in Serum, Plasma or Blood by Creatinine-based formula (CKD-EPI) 02/02/2025 11:00:00 6 Below low normal >=60 (mL/min) Final eGFR is calculated based on the CKD-EPI 2020 equation. Sodium 02/02/2025 11:00:00 117 Below lower panic li mits 135-146 (mmol/L) Final Results rechecked Potassium 02/02/2025 11:00:00 5.7 Above high normal 3. 5-5.1 (mmol/L) Final Cl 02/02/2025 11:00:00 82 Below low normal 98- 107 (mmol/L) Final CO2 02/02/2025 11:00:00 16 Below low normal 22- 32 (mmol/L) Final Anion gap 02/02/2025 11:00:00 19 Above high normal 7- 15 (mmol/L) Final Glucose 02/02/2025 11:00:00 88 70-120 (mg /dL) Final Albumin 02/02/2025 11:00:00 2.8 Below low normal 3.8 -5.0 (g/dL) Final AST (Aspartate aminotransferase) 02/02/2025 11:00:00 82 Above high normal 10-50 (U/L) Final Alk Phos 02/02/2025 11:00:00 368 Above high normal 35 -130 (U/L) Final Bilirubin, Total 02/02/2025 11:00:00 5.2 Above high no rmal <=1.2 (mg/dL) Final Calcium 02/02/2025 11:00:00 7.7 Below low normal 8.4 -10.2 (mg/dL) Final Protein 02/02/2025 11:00:00 4.9 Below low normal 6.0 -8.3 (g/dL) Final ALT (Alanine aminotransferase) 02/02/2025 11:00:00 52 Above high normal 10-50 (U/L) Final Performing Location LABORATORY [facility] - [facility] [address] [place] [address]
[2025-02-03] MEDS: PANTOprazole 40 MG TAB PO SCH (08:28)
--- NOTE | 2025-02-03 08:49 | Nephrology Consultation ---
Date of Consultation February 02, 2025 Assessment & Plan (1) Hyponatremia: (2) LIOR (acute kidney injury): (3) Urothelial carcinoma: Plan Late entry - telephone consultation provided to Dr. Carvalho in EMD at 11pm 02/02/25 re: Abraham Cool. EMR was reviewed at the time of consultation. Patient was recently found to have bilateral hydronephrosis. 01/19/25 he underwent bilateral retrograde pyelogram, bilateral ureteral stent insertion, laser cystolitholapaxy, urethral dilation and Amaya catheter insertion by Dr. Rahman. Biopsies obtained at that time revealed invasive urothelial cell carcinoma. He was reevaluated by urology 02/01/25 and Amaya catheter was rem marie. Last evening Mr. Cool presented to the EMD w/ complaints of weakness and lethargy. Laboratory testing revealed Na 117 mmol/L, K 4.9, CO2 19, BUN 109, Cr 1.9-->8.9. Abdominal CT films were reviewed at the time of consultation. Bilateral ureteral stents were in proper position, Amaya catheter was absent. No hydronephrosis appreciated. Dr. Carvalho did order a new Amaya catheter to be placed. Only [address] was obtained without IV contrast. Patient has been taking Xeljanz but no other known nephrotoxic agents. Dr. Carvalho asked whether dialysis was indicated or hydration w/ saline would be appropriate. I explained that the working diagnosis was LIOR related to SHEPARD and that the patient likely has oliguric ATN. I agreed w/ Amaya catheter placement and advised ICU admission and consultation w/ marine habitat resource specialist for 3% saline administration to gradually correct hyponatremia. I explained that HD would not be indicated at this time due to potential for overly rapid correction of hyponatremia. EMR was reviewed 02/03/25 am. When presented w/ ICU admission and critical care consultation the family recognized that Mr. Cool has advanced urothelial carcinoma with a poor prognosis. They chose not to escalate care and instead have him admitted to the medical service for comfort measures. No further nephrology evaluation is indicated at this time. Will sign off. Total time for EMR review including imaging and pathology reports, discussion with EMD and documentation - 90 min History of Present Illness Reason for Consultation: Hyponatremia Requesting Physician: Dr. Carvalho Attending Physician: Clint Stubbs History of Present Illness EMD nighttime telephone consultation - see below Allergies Allergy/AdvReac Type Severity Reaction Status Date / Time adhesive AdvReac skin tear Verified 01/31/25 14:22 Home Medications Medication Instructions Recorded Confirmed Type tofacitinib 11 mg tablet,extended 11 mg PO DAILY 04/08/23 02/02/25 History release 24 hr (Xeljanz XR) alfuzosin 10 mg tablet,extended 10 mg PO DAILY #90 tabs 04/13/24 02/02/25 Rx release 24 hr (Uroxatral) levothyroxine 50 mcg tablet 50 mcg PO DAILY #90 tabs 08/15/24 02/02/25 Rx (Synthroid) pantoprazole 40 mg tablet,delayed 40 mg PO DAILY 01/19/25 02/02/25 History release (Protonix) phenazopyridine 200 mg tablet 200 mg PO Q8H PRN pain #10 tabs 01/25/25 02/02/25 Rx (Pyridium) polyethylene glycol 3350 17 17 g PO DAILY #238 grams 01/31/25 02/02/25 Rx gram/dose oral powder (Miralax) acetaminophen 325 mg tablet 650 mg PO Q4 PRN PAIN 1-10 OR 02/02/25 02/02/25 History FEVER >100.4 acetaminophen 500 mg tablet 500 mg PO Q4 PRN PAIN 1-10 OR 02/02/25 02/02/25 History FEVER >100.4 acetaminophen 500 mg tablet 500 mg PO QID 3G 02/02/25 02/02/25 History calcium 500 mg (as 2 tab PO DAILY 02/02/25 02/02/25 History carbonate)-vitamin D3 10 mcg (400 unit) tablet (Calcium 500 + D) Patient History Medical History Encounter for pre-operative examination History of blood transfusion Osteoarthritis Dysphagia History of esophageal dilatation Diverticular disease Acute kidney injury superimposed on CKD CKD stage 3a, GFR 45-59 ml/min History of anesthesia reaction Hx of influenza Near syncope Hx of hypercholesterolemia Hx of basal cell carcinoma Acid reflux disease History of esophageal stricture Hypothyroidism Hx of supraventricular tachycardia Rheumatoid arthritis History of colon polyps BPH (benign prostatic hyperplasia) Bladder stone Hydronephrosis, right Surgical History Hx of basal cell carcinoma excision History of esophagogastroduodenoscopy (EGD) S/P cholecystectomy S/P colonoscopy H/O cardiac radiofrequency ablation Family History Mother Cancer Father Cirrhosis Denies family history of Ovarian cancer Prostate cancer Myocardial infarction Breast cancer Colorectal cancer Social History Smoking Status: Unknown if ever smoked Tobacco Type: Cigarettes Age Started Using Tobacco: 24; Age Quit Using Tobacco: 27; packs per day: 3; Second Hand Exposure: No; Do You Dip or Chew Tobacco: No; Hx Alcohol Use: No Hx Substance Use: No Preferred Language: Mongolian Communication Ability: Effective Visual Impairment: No Limitations Hearing Ability: Normal Supervisor Incising Required: No Beliefs That Will Affect Care: None marital status: Current Living Situation: Spouse Current Living Situation Comment: comfort care current occupational status: 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 How many Children do You have: 1 Feels Safe at Home: No Is there a partner from a previous relationship who is making you feel unsafe now?: No Safety Concerns: Feels Safe At This Time Childhood Exposure to Second-Hand Smoke: No Diet: regular caffeine: Yes during the past year weight has: remained stable Dental Care, Regularly: No Physical Activity Frequency: Does not Exercise Seatbelt Use: always Sunscreen Use: No Do you think of yourself as: straight/heterosexual Gender Identity: Male Assistive Devices: Hospital Bed and Walker Assistive Devices Comment: comfort care Results & Data Vital Signs (Past 12 Hours) Vital Signs Pulse Resp BP Pulse Ox O2 Del Method 02/03/25 01:38 Room Air 02/03/25 01:21 Room Air 02/03/25 00:51 96 H 30 H 106/74 92 02/03/25 00:43 79 02/03/25 00:27 73 20 144/78 H 94 02/03/25 00:00 86 19 141/86 H 92 02/02/25 23:00 89 19 145/88 H 92 02/02/25 22:33 88 29 H 152/83 H 94 02/02/25 20:48 85 24 140/76 96 02/02/25 20:39 82 Laboratory Results Laboratory Results WBC 32.40 K/ul (4.8-10.8) H* 02/02/25 20:10 RBC 3.62 M/uL (4.70-6.10) L 02/02/25 20:10 Hgb 10.9 g/dl (14.0-18.0) L 02/02/25 20:10 POC Hgb 11.9 g/dl (14.0-18.0) L 02/02/25 20:51 Hct 30.6 % (42.0-52.0) L 02/02/25 20:10 POC Hct 35 % (42-52) L 02/02/25 20:51 MCV 84.5 fL (80.0-100.0) 02/02/25 20:10 MCH 30.1 pg (25.0-34.0) 02/02/25 20:10 MCHC 35.6 g/dL (32.0-36.0) 02/02/25 20:10 RDW Std Deviation 41.0 fL (36.4-46.3) 02/02/25 20:10 RDW Coeff of Ronaldo 13.2 % (11.5-14.5) 02/02/25 20:10 Plt Count 553 K/uL (130-400) H 02/02/25 20:10 MPV 9.0 fL (9.4-12.4) L 02/02/25 20:10 Immature Gran % (Auto) 7.0 % 02/02/25 20:10 Neut % (Auto) 86.2 % 02/02/25 20:10 Lymph % (Auto) 2.4 % 02/02/25 20:10 Russell % (Auto) 3.8 % 02/02/25 20:10 Eos % (Auto) 0.2 % 02/02/25 20:10 Baso % (Auto) 0.4 % 02/02/25 20:10 Neut # (Auto) 27.97 K/uL (1.40-6.50) H 02/02/25 20:10 Lymph # (Auto) 0.77 K/uL (1.20-3.40) L 02/02/25 20:10 Russell # (Auto) 1.22 K/uL (0.11-0.59) H 02/02/25 20:10 Eos # (Auto) 0.05 K/uL (0.00-0.50) 02/02/25 20:10 Baso # (Auto) 0.13 K/uL (0.00-0.20) 02/02/25 20:10 Immature Gran # (Auto) 2.26 K/uL (0.01-0.20) H 02/02/25 20:10 POC Sodium 116 mmol/L (135-144) L* 02/02/25 20:51 Sodium 117 mmol/L (136-145) L* 02/02/25 20:10 POC Potassium 4.9 mmol/L (3.3-5.0) 02/02/25 20:51 Potassium 4.9 mmol/L (3.5-5.1) 02/02/25 20:10 POC Chloride 86 mmol/L (101-112) L 02/02/25 20:51 Chloride 84 mmol/L (98-107) L 02/02/25 20:10 Carbon Dioxide 20 mmol/L (21-32) L 02/02/25 20:10 POC Total CO2 19 mmol/L (24-31) L 02/02/25 20:51 Anion Gap 13 (3-11) H 02/02/25 20:10 POC Anion Gap 17.0 mmol/L (16-25) 02/02/25 20:51 POC BUN 109 mg/dl (7-18) H* 02/02/25 20:51 BUN 112 mg/dl (6-23) H 02/02/25 20:10 Creatinine 8.92 mg/dl (0.6-1.4) H* 02/02/25 20:10 POC Creatinine 9.5 mg/dl (0.6-1.3) H* 02/02/25 20:51 Est Cr Clr Drug Dosing 6.1 ml/min 02/02/25 20:10 eGFR 5.21 02/02/25 20:10 BUN/Creatinine Ratio 12.6 (10-20) 02/02/25 20:10 Glucose 138 mg/dl (70-99(Fasting)) H 02/02/25 20:10 POC Glucose (other) 133 mg/dl (70-99) H 02/02/25 20:51 Lactate 1.2 mmol/L (0.4-2.0) 02/02/25 21:29 Calcium 8.3 mg/dl (8.6-10.3) L 02/02/25 20:10 POC Ioniz Calcium Landry 0.98 mmol/l (1.12-1.32) L 02/02/25 20:51 Total Bilirubin 7.2 mg/dl (0.2-1.0) H 02/02/25 20:10 AST 73 U/L (13-39) H 02/02/25 20:10 ALT 52 U/L (7-52) 02/02/25 20:10 Alkaline Phosphatase 383 U/L (34-104) H 02/02/25 20:10 Troponin I High Sens 23.3 pg/ml (0-20) H 02/02/25 21:29 Total Protein 6.1 gm/dl (6.0-8.3) 02/02/25 20:10 Albumin 3.2 gm/dl (3.4-5.0) L 02/02/25 20:10 Globulin 2.9 gm/dl (2.5-4.0) 02/02/25 20:10 Albumin/Globulin Ratio 1.1 (0.9-2) 02/02/25 20:10 Procalcitonin 9.29 ng/ml (0-0.5) H 02/02/25 20:10 Urine Color Dark Yellow 02/02/25 21:15 Urine Appearance Turbid (Clear) A 02/02/25 21:15 Urine pH 5.5 (4.5-7.5) 02/02/25 21:15 Ur Specific [place] 1.012 (1.000-1.030) 02/02/25 21:15 Urine Protein 2+ (Negative) H 02/02/25 21:15 Urine Glucose (UA) Negative (Negative) 02/02/25 21:15 Urine Ketones Negative (Negative) 02/02/25 21:15 Urine Blood 3+ (Negative) H 02/02/25 21:15 Urine Nitrite Positive (Negative) A 02/02/25 21:15 Urine Bilirubin 1+ (Negative) H 02/02/25 21:15 Urine Urobilinogen Negative (Negative) 02/02/25 21:15 Ur Leukocyte Esterase 3+ (Negative) H 02/02/25 21:15 Urine WBC (Auto) >50 /hpf (0-5) H 02/02/25 21:15 Urine RBC (Auto) >20 /hpf (0-2) H 02/02/25 21:15 U Hyaline Cast (Auto) 3-5 /lpf (0-2) H 02/02/25 21:15 U Epithel Cells (Auto) 3-5 /hpf (0-2) H 02/02/25 21:15 Urine Bacteria (Auto) 4+ (None Seen) H 02/02/25 21:15 Urine Mucus Present (None Prsent) A 02/02/25 21:[address] 02/02/25 20:33 Exam(s): CT HEAD Without Contrast EXAM: CT Head Without Intravenous Contrast CLINICAL HISTORY: Reason for exam: AMS. TECHNIQUE: Axial computed tomography images of the head/brain without intravenous contrast. CTDI is 37.42 mGy and DLP is 546.36 mGy-cm. Automated exposure control was utilized for the study. A dose lowering technique was utilized adhering to the principles of ALARA. COMPARISON: No relevant prior studies available. FINDINGS: Brain: No intracranial hemorrhage, mass-effect, or cerebral edema. Atrophy and chronic microvascular ischemic changes. 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 Ventricles: Unremarkable. Bones/joints: Unremarkable. No fracture. Soft tissues: Unremarkable. Sinuses: No acute sinusitis. Mastoid air cells: Unremarkable as visualized. IMPRESSION: No acute intracranial abnormality. Electronically signed by: Miguel Hodges MD 02/02/25 21:51 PM Abdomen/Pelvis CT 02/02/25 20:53 Exam(s): CT ABDOMEN + PELVIS Without Contrast EXAM: CT Abdomen and Pelvis Without Intravenous Contrast CLINICAL HISTORY: Reason for exam: renal failure, nausea. TECHNIQUE: Axial computed tomography images of the abdomen and pelvis without intravenous contrast. CTDI is 24.55 mGy and DLP is 1148.71 mGy-cm. Automated exposure control was utilized for the study. A dose lowering technique was utilized adhering to the principles of ALARA. COMPARISON: No relevant prior studies available. FINDINGS: ABDOMEN: Liver: Unremarkable. Gallbladder and bile ducts: Status post cholecystectomy. Pancreas: Unremarkable. Spleen: Unremarkable. Adrenals: Unremarkable. Kidneys and ureters: Bilateral double-J nephroureteral stents in place. No ureteral stone. Mild right and no significant left hydronephrosis. Stomach and bowel: Sigmoid diverticulosis without acute diverticulitis. PELVIS: Appendix: No findings to suggest acute appendicitis. Bladder: Trabeculated bladder. Reproductive: Prostatomegaly. ABDOMEN and PELVIS: Intraperitoneal space: Unremarkable. No free air. No significant fluid collection. Bones/joints: No acute fracture. Soft tissues: Unremarkable. Vasculature: Unremarkable. Lymph nodes: Unremarkable. IMPRESSION: 1. Bilateral double-J nephroureteral stents in place. No ureteral stone. Mild right and no significant left hydronephrosis. 2. Prostatomegaly. 3. Trabeculated bladder. 4. Sigmoid diverticulosis without acute diverticulitis. Electronically signed by: Miguel Hodges MD 02/02/25 21:50 PM PG Care Time/CCT Total # of Minutes Spent Total Time Spent with Patient: Total time spent is greater than 50% in coordination of care (as documented) at patient's floor/unit and/or counseling patient: Coding Level of Care Code 84946 IN/OBS CONSULT LVL 5,80M Diagnoses Hyponatremia E87.1 LIOR (acute kidney injury) N17.9 Urothelial carcinoma C68.9
--- NOTE | 2025-02-03 14:19 | Electrocardiogram Report ---
Test Reason : Blood Pressure : */* mmHG Vent. Rate : 90 BPM Atrial Rate : 90 BPM P-R Int : 256 ms QRS Dur : 80 ms QT Int : 378 ms P-R-T Axes : * 3 32 degrees QTcB Int : 462 ms Sinus rhythm with 1st degree A-V block Abnormal ECG When compared with ECG of 19-Jan-2025 11:09, Sinus rhythm is no longer with 2nd degree A-V block (Mobitz I) Vent. rate has increased by 32 bpm Confirmed by Connor Hsu ([id number]) on 02/03/2025 2:19:00 PM Referred By: Ciera Mora Confirmed By: Connor Hsu
--- NOTE | 2025-02-03 16:18 | Hospitalist Progress Note ---
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 GEN: Healthy appearing, well-developed, NAD. -Head: NC/AT; -Ears: External ears are normal. Normal TMs. -Nose: Normal nares. -Mouth and throat: MMM. Normal gums, muc kolby, palate,. Good dentition. NECK: Supple, with no masses. CV: RRR, no m/r/g. LUNGS: CTAB, no w/r/c. no respiratory distress ABD: Soft, NT/ND, NBS, no masses or organomegaly. : N/A EXT: No clubbing, cyanosis, or edema. Results & Data Results & Data Vital Signs (Past 12 Hours) Laboratory Results - last 72 hr 02/02/25 02/02/25 02/02/25 20:10 20:51 21:15 WBC 32.40 H* RBC 3.62 L Hgb 10.9 L POC Hgb 11.9 L Hct 30.6 L POC Hct 35 L MCV 84.5 MCH 30.1 MCHC 35.6 RDW Std Deviation 41.0 RDW Coeff of Ronaldo 13.2 Plt Count 553 H MPV 9.0 L Immature Gran % (Auto) 7.0 Neut % (Auto) 86.2 Lymph % (Auto) 2.4 Dixie % (Auto) 3.8 Eos % (Auto) 0.2 Baso % (Auto) 0.4 Neut # (Auto) 27.97 H Lymph # (Auto) 0.77 L Dixie # (Auto) 1.22 H Eos # (Auto) 0.05 Baso # (Auto) 0.13 Immature Gran # (Auto) 2.26 H POC Sodium 116 L* Sodium 117 L* POC Potassium 4.9 Potassium 4.9 POC Chloride 86 L Chloride 84 L Carbon Dioxide 20 L POC Total CO2 19 L Anion Gap 13 H POC Anion Gap 17.0 POC BUN 109 H* BUN 112 H Creatinine 8.92 H* POC Creatinine 9.5 H* Est Cr Clr Drug Dosing 6.1 eGFR 5.21 BUN/Creatinine Ratio 12.6 Glucose 138 H POC Glucose (other) 133 H Lactate Calcium 8.3 L POC Ioniz Calcium Landry 0.98 L Total Bilirubin 7.2 H AST 73 H ALT 52 Alkaline Phosphatase 383 H Troponin I High Sens Total Protein 6.1 Albumin 3.2 L Globulin 2.9 Albumin/Globulin Ratio 1.1 Procalcitonin 9.29 H Urine Color Dark Yellow Urine Appearance Turbid A Urine pH 5.5 Ur Specific [place] 1.012 Urine Protein 2+ H Urine Glucose (UA) Negative Urine Ketones Negative Urine Blood 3+ H Urine Nitrite Positive A Urine Bilirubin 1+ H Urine Urobilinogen Negative Ur Leukocyte Esterase 3+ H Urine WBC (Auto) >50 H Urine RBC (Auto) >20 H U Hyaline Cast (Auto) 3-5 H U Epithel Cells (Auto) 3-5 H Urine Bacteria (Auto) 4+ H Urine Mucus Present A 02/02/25 21:29 WBC RBC Hgb POC Hgb Hct POC Hct MCV MCH MCHC RDW Std Deviation RDW Coeff of Ronaldo Plt Count MPV Immature Gran % (Auto) Neut % (Auto) Lymph % (Auto) Dixie % (Auto) Eos % (Auto) Baso % (Auto) Neut # (Auto) Lymph # (Auto) Dixie # (Auto) Eos # (Auto) Baso # (Auto) Immature Gran # (Auto) POC Sodium Sodium POC Potassium Potassium POC Chloride Chloride Carbon Dioxide POC Total CO2 Anion Gap POC Anion Gap POC BUN BUN Creatinine POC Creatinine Est Cr Clr Drug Dosing eGFR BUN/Creatinine Ratio Glucose POC Glucose (other) Lactate 1.2 Calcium POC Ioniz Calcium Landry Total Bilirubin AST ALT Alkaline Phosphatase Troponin I High Sens 23.3 H Total Protein Albumin Globulin Albumin/Globulin Ratio Procalcitonin Urine Color Urine Appearance Urine pH Ur Specific [place] Urine Protein Urine Glucose (UA) Urine Ketones Urine Blood Urine Nitrite Urine Bilirubin Urine Urobilinogen Ur Leukocyte Esterase Urine WBC (Auto) Urine RBC (Auto) U Hyaline Cast (Auto) U Epithel Cells (Auto) Urine Bacteria (Auto) Urine Mucus Medications Administered Current Inpatient Medications Atropine Sulfate (Atropine Sulfate 1% Op Soln 5 Ml Btl) 4 drops SL Q1H PRN PRN Reason: Secretions or pulm congestion Stop: 03/05/25 01:37 Baclofen (Baclofen 10 Mg Tab) 5 mg PO Q8H PRN PRN Reason: Hiccups Stop: 03/05/25 01:37 Chlorpromazine HCl (Chlorpromazine Hcl 25 Mg Tab) 25 mg PO Q6H PRN PRN Reason: Hiccups Stop: 03/05/25 01:37 Glycopyrrolate (Glycopyrrolate 0.2 Mg/Ml Vial) 0.4 mg IV Q4H PRN PRN Reason: Rattling Secretions or Pulm Congestion Stop: 03/05/25 01:37 Haloperidol (Haloperidol Oral Soln 2 Mg/Ml) 0.5 mg PO Q4H PRN PRN Reason: Nausea &/or Vomiting Stop: 03/05/25 01:37 Hydromorphone HCl (Hydromorphone Inj 0.5 Mg/0.5 Ml Syr) 0.5 mg IV Q4H PRN PRN Reason: Pain or Respiratory Distress Stop: 02/17/25 01:37 Last Admin: 02/03/25 02:02 Dose: 0.5 mg Hyoscyamine (Hyoscyamine Sulfate 0.125 Mg Tab) 0.125 mg SL Q4H PRN PRN Reason: Secretions or Pulm Congestion Stop: 03/05/25 01:37 Lorazepam (Lorazepam 2 Mg/1 Ml Vial) 0.5 mg IV Q4H PRN PRN Reason: Anxiety/Agitation Stop: 03/05/25 01:37 Last Admin: 02/03/25 02:02 Dose: 0.5 mg Ondansetron HCl (Ondansetron Inj 2 Mg/Ml 2 Ml Vial) 4 mg IV Q4H PRN PRN Reason: Nausea &/or Vomiting Stop: 03/05/25 01:37 Last Admin: 02/03/25 02:02 Dose: 4 mg Pantoprazole Sodium (Pantoprazole 40 Mg Tab) 40 mg PO DAILY ROSY Stop: 03/05/25 08:59 Last Admin: 02/03/25 08:28 Dose: Not Given PG Care Time/CCT Total # of Minutes Spent Total Time Spent with Patient: Total time spent is greater than 50% in coordination of care (as documented) at patient's floor/unit and/or counseling patient: Coding Level of Care Code 12114 SUB INP/OBS CARE 11/12MIN Diagnoses End of life care Z51.5 Cancer related pain G89.3 Time Spent (min) 20
[2025-02-03 17:58] LABS: A calco-baum cmplx NotReported Not Detected (NotDetected); Bact fragilis Not Reported Not Detected (NotDetected); Blood Culture Id Panel See PCR Comment (NotDetected); C auris Not Reported Not Detected (NotDetected); CTX-M Resistant Gene Not Detected (NotDetected); Calbicans Not Reported Not Detected (NotDetected); Candida glabrata Not Reported Not Detected (NotDetected); Candida krusei Not Reported Not Detected (NotDetected); Cneoformans/gatti Not Reported Not Detected (NotDetected); Cparapsilosis Not Reported Not Detected (NotDetected); Ctropicalis Not Reported Not Detected (NotDetected); E cloacae compx Not Reported Not Detected (NotDetected); Efaecalis Not Reported Not Detected (NotDetected); Efaecium Not Reported Not Detected (NotDetected); Enterobacterales Not Reported Not Detected (NotDetected); Escherichia coli Not Reported Not Detected (NotDetected); H influenzae Not Reported Not Detected (NotDetected); IMP Resistant Gene Not Detected (NotDetected); K aerogenes Not Reported Not Detected (NotDetected); KPC Resistant Gene Not Detected (NotDetected); Koxytoca Not Reported Not Detected (NotDetected); Kpneumoniae grp Not Reported Not Detected (NotDetected); Lmonocyt Not Reported Not Detected (NotDetected); N meningitidis Not Reported Not Detected (NotDetected); NDM Resistant Gene Not Detected (NotDetected); P aeruginosa Not Reported DETECTED (NotDetected); Proteus spp Not Reported Not Detected (NotDetected); Salmonella spp Not Reported Not Detected (NotDetected); Staph lugdunensis Not Reported Not Detected (NotDetected); Staph spp. Not Reported Not Detected (NotDetected); Staphaureus Not Reported Not Detected (NotDetected); Staphepi Not Reported Not Detected (NotDetected); Stenmaltophilia Not Reported Not Detected (NotDetected); Strep agal(GrpB) Not Reported Not Detected (NotDetected); Strep pneum Not Reported Not Detected (NotDetected); Strep pyog (GrpA) Not Reported Not Detected (NotDetected); Strep spp Not Reported Not Detected (NotDetected); VIM Resistant Gene Not Detected (NotDetected)
[2025-02-03 18:05] LABS: Pseudomonas aeruginosa DETECTED (NotDetected)
--- NOTE | 2025-02-04 14:21 | Hospitalist Progress Note ---
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 and ativan Physical Exam Physical Exam: VITALS: Reviewed. GEN: chronically ill appearing neuro: sedated; but comfortable -Head: NC/AT; NECK: Supple, with no masses. CV: RRR, no m/r/g. LUNGS: CTAB, no w/r/c. no respiratory distress ABD: Soft, NT/ND, NBS, no masses or organomegaly. : N/A EXT: No clubbing, cyanosis, or edema. PG Care Time/CCT Total # of Minutes Spent Total Time Spent with Patient: Total time spent is greater than 50% in coordination of care (as documented) at patient's floor/unit and/or counseling patient: Coding Level of Care Code 23456 SUB INP/OBS CARE 1/25MIN Diagnoses End of life care Z51.5 Cancer related pain G89.3 Time Spent (min) 15
[2025-02-05] MEDS: GLYCOPYRROLATE 0.2 MG/ML VIAL IV PRN (10:47)
--- NOTE | 2025-02-05 14:23 | Hospitalist Progress Note ---
Date of Service February 05, 2025 Assessment & Plan (1) End of life care: Plan: admission for IV dilaudid pain control (2) Cancer related pain: Plan Patient is a 89-year-old gentleman with bladder stone, urothelial lesion, hypothyroidism On evening of February 02 he came to our hospital for weakness confusion, significant pain, hyponatremia Family request admission for DEVELOPMENT ARCHITECT status for IV Dilaudid 0.5 mg every 4 hours DEVELOPMENT ARCHITECT c/w dilaudid IV 0.5mg q4 hours ativan 0.5mg IV q4 hours PRN schedule rubinol TID patient may order meal tray for pleasure Admission and Anticipated Discharge Date Admission Date: February 03, 2025 Subjective Patient awake today pain well-controlled lung sound congested No other distress Physical Exam Physical Exam: VITALS: Reviewed. GEN: chronically ill appearing neuro: sedated; but comfortable -Head: NC/AT; NECK: Supple, with no masses. CV: RRR, no m/r/g. LUNGS: CTAB, no w/r/c. no respiratory distress ABD: Soft, NT/ND, NBS, no masses or organomegaly. extremity: warm to touch PG Care Time/CCT Total # of Minutes Spent Total Time Spent with Patient: Total time spent is greater than 50% in coordination of care (as documented) at patient's floor/unit and/or counseling patient: Coding Level of Care Code 18546 SUB INP/OBS CARE 1/25MIN Diagnoses End of life care Z51.5 Cancer related pain G89.3 Time Spent (min) 25
--- NOTE | 2025-02-06 13:04 | Palliative Care Consultation ---
Date of Consultation February 06, 2025 Assessment & Plan (1) Palliative care by specialist: Palliative care will continue to follow for ongoing EOL pt care and family support. (2) End of life care: Assessed pt at bedside, he is awake and alert but does not communicate clearly. He answers questions with moaning and unintelligible speech. He does not follow commands. No visitors were present. Pt continues to moan without stimuli, also noted to be tachypneic. Encouraged BSRN to frequently assess and medicate as needed for nonverbal signs of discomfort. Encouraged that pt's room door be propped open due to concern for pt's altered mental state preventing him from using call mehta. PRN criteria for dilaudid changed to include nonverbal signs of pain given pt's current state. (3) Comfort measures only status: pt transitioned to comfort directed care 02/03/2025, he has had minimal PRN use and is pending SNF placement for ongoing hospice care. (4) Need for comfort care: EOL Symptom manamgement: Pain/dyspnea/tachypnea dilaudid 0.5mg IVP PRN [id number] Consider titratable morphine drip if pt requires >3 PRN doses in under two consecutive hours. Nausea/vomitting zofran 4mg IVP q4h PRN Agitation ativan 0.5mg IVP q4h PRN Hyperactive delirium haldol 5mg IVP q6h PRN Secretions - if repositioning not effective robinul 0.4mg IV q4h PRN atropine SL 3 drops Q1h PRN Nursing care: Discontinue all medications not directed towards comfort. Detether pt from IV tubing, monitor cables, and check vitals once per shift. Please continue HFNC and titrate down as able for patient comfort. Use medications above PRN for dyspnea/tachypnea and do not increase oxygen once titrated down. Assess q1h for pain/dyspnea and treat accordingly. Plan as above History of Present Illness Reason for Consultation: end of life care Requesting Physician: Guicho Puente DO Attending Physician: Guicho Puente DO History of Present Illness Abraham ([place]agram) Travon is an 89 year old male withPMHx as below and recently diagnosed urothelial carcinoma who presents to the ER with low sodium and fatigue. He was diagnosed with multi organ failure in the ER and wished to be made for comfort care only. Allergies Allergy/AdvReac Type Severity Reaction Status Date / Time adhesive AdvReac skin tear Verified 01/31/25 14:22 Home Medications Medication Instructions Recorded Confirmed Type tofacitinib 11 mg tablet,extended 11 mg PO DAILY 04/08/23 02/02/25 History release 24 hr (Xeljanz XR) alfuzosin 10 mg tablet,extended 10 mg PO DAILY #90 tabs 04/13/24 02/02/25 Rx release 24 hr (Uroxatral) levothyroxine 50 mcg tablet 50 mcg PO DAILY #90 tabs 08/15/24 02/02/25 Rx (Synthroid) pantoprazole 40 mg tablet,delayed 40 mg PO DAILY 01/19/25 02/02/25 History release (Protonix) phenazopyridine 200 mg tablet 200 mg PO Q8H PRN pain #10 tabs 01/25/25 02/02/25 Rx (Pyridium) polyethylene glycol 3350 17 17 g PO DAILY #238 grams 01/31/25 02/02/25 Rx gram/dose oral powder (Miralax) acetaminophen 325 mg tablet 650 mg PO Q4 PRN PAIN 1-10 OR 02/02/25 02/02/25 History FEVER >100.4 acetaminophen 500 mg tablet 500 mg PO Q4 PRN PAIN 1-10 OR 02/02/25 02/02/25 History FEVER >100.4 acetaminophen 500 mg tablet 500 mg PO QID 3G 02/02/25 02/02/25 History calcium 500 mg (as 2 tab PO DAILY 02/02/25 02/02/25 History carbonate)-vitamin D3 10 mcg (400 unit) tablet (Calcium 500 + D) Patient History Medical History Encounter for pre-operative examination History of blood transfusion Osteoarthritis Dysphagia History of esophageal dilatation Diverticular disease Acute kidney injury superimposed on CKD CKD stage 3a, GFR 45-59 ml/min History of anesthesia reaction Hx of influenza Near syncope Hx of hypercholesterolemia Hx of basal cell carcinoma Acid reflux disease History of esophageal stricture Hypothyroidism Hx of supraventricular tachycardia Rheumatoid arthritis History of colon polyps BPH (benign prostatic hyperplasia) Bladder stone Hydronephrosis, right Surgical History Hx of basal cell carcinoma excision History of esophagogastroduodenoscopy (EGD) S/P cholecystectomy S/P colonoscopy H/O cardiac radiofrequency ablation Family History Mother Cancer Father Cirrhosis Denies family history of Ovarian cancer Prostate cancer Myocardial infarction Breast cancer Colorectal cancer Social History Smoking Status: Unknown if ever smoked Tobacco Type: Cigarettes Age Started Using Tobacco: 24; Age Quit Using Tobacco: 27; packs per day: 3; Second Hand Exposure: No; Do You Dip or Chew Tobacco: No; Hx Alcohol Use: No Hx Substance Use: No Preferred Language: Yemeni Communication Ability: Unable Visual Impairment: No Limitations Hearing Ability: Normal Pipe Coverer Required: No Beliefs That Will Affect Care: None marital status: Current Living Situation: Spouse Current Living Situation Comment: comfort care current occupational status: 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 How many Children do You have: 1 Feels Safe at Home: No Is there a partner from a previous relationship who is making you feel unsafe now?: No Safety Concerns: Feels Safe At This Time Childhood Exposure to Second-Hand Smoke: No Diet: regular caffeine: Yes during the past year weight has: remained stable Dental Care, Regularly: No Physical Activity Frequency: Does not Exercise Seatbelt Use: always Sunscreen Use: No Do you think of yourself as: straight/heterosexual Gender Identity: Male Assistive Devices: Walker Assistive Devices Comment: comfort care Review of Systems Review of Systems: Unobtainable due to reduced consciousness Physical Exam Constitutional: well developed, + ill appearing and + altered mental status Pt lyin in bed moaning, does not make attempt to follow commands. Eyes: PERRL, conjunctivae normal, anicteric sclerae Neck: trachea midline, no thyromegaly Respiratory: normal respiratory effort, lungs clear to auscultation Cardiovascular: Rate/Rhythm: regular rate, regular rhythm and + tachycardic Gastrointestinal (Abdomen): normal bowel sounds, soft, nontender, no hepatosplenomegaly Musculoskeletal: HAAS but does not follow commands. Skin: pale, cool to touch Neurologic: Awake and alert, eyes open and tracks but did not follow commands. Moans continuousy. Results & Data Vital Signs (Past 12 Hours) Vital Signs Temp 36.5 C 02/02/25 19:56 Pulse 96 H 02/03/25 00:51 Resp 30 H 02/03/25 00:51 BP 106/74 02/03/25 00:51 Pulse Ox 92 02/03/25 00:51 O2 Del Method Room Air 02/05/25 21:34 Laboratory Results No further labs or diagnostics in concert with comfort directed care. Diagnostic Findings No further labs or diagnostics in concert with comfort directed care. Medications Administered Current Inpatient Medications Atropine Sulfate (Atropine Sulfate 1% Op Soln 5 Ml Btl) 4 drops SL Q1H PRN PRN Reason: Secretions or pulm congestion Stop: 03/05/25 01:37 Baclofen (Baclofen 10 Mg Tab) 5 mg PO Q8H PRN PRN Reason: Hiccups Stop: 03/05/25 01:37 Chlorpromazine HCl (Chlorpromazine Hcl 25 Mg Tab) 25 mg PO Q6H PRN PRN Reason: Hiccups Stop: 03/05/25 01:37 Glycopyrrolate (Glycopyrrolate 0.2 Mg/Ml Vial) 0.4 mg IV Q4H PRN PRN Reason: Rattling Secretions or Pulm Congestion Stop: 03/05/25 01:37 Last Admin: 02/06/25 10:57 Dose: 0.4 mg Haloperidol (Haloperidol Oral Soln 2 Mg/Ml) 0.5 mg PO Q4H PRN PRN Reason: Nausea &/or Vomiting Stop: 03/05/25 01:37 Hydromorphone HCl (Hydromorphone Inj 0.5 Mg/0.5 Ml Syr) 0.5 mg IV Q4H PRN PRN Reason: Pain or Respiratory Distress Stop: 02/17/25 01:37 Last Admin: 02/06/25 10:57 Dose: 0.5 mg Hyoscyamine (Hyoscyamine Sulfate 0.125 Mg Tab) 0.125 mg SL Q4H PRN PRN Reason: Secretions or Pulm Congestion Stop: 03/05/25 01:37 Lorazepam (Lorazepam 2 Mg/1 Ml Vial) 0.5 mg IV Q4H PRN PRN Reason: Anxiety/Agitation Stop: 03/05/25 01:37 Last Admin: 02/06/25 12:20 Dose: 0.5 mg Ondansetron HCl (Ondansetron Inj 2 Mg/Ml 2 Ml Vial) 4 mg IV Q4H PRN PRN Reason: Nausea &/or Vomiting Stop: 03/05/25 01:37 Last Admin: 02/05/25 05:31 Dose: 4 mg Pantoprazole Sodium (Pantoprazole 40 Mg Tab) 40 mg PO DAILY ROSY Stop: 03/05/25 08:59 Last Admin: 02/06/25 07:21 Dose: Not Given PG Care Time/CCT Total # of Minutes Spent Total Time Spent with Patient: Total time spent is greater than 50% in coordination of care (as documented) at patient's floor/unit and/or counseling patient: [place] [address] IN/OBS CONSULT LVL 4,60M Patient Type New History Expanded Problem Focused Exam Expanded Problem Focused Medical Decision Making Moderate Complexity Diagnoses Palliative care by specialist Z51.5 End of life care Z51.5 Comfort measures only status Z51.5 Need for comfort care
[2025-02-06] MEDS: HYDROmorphone INJ 0.5 MG/0.5 ML SYR IV PRN ×2 (13:33→16:02)
--- NOTE | 2025-02-06 18:18 | Hospitalist Progress Note ---
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 status for IV Dilaudid 0.5 mg every 4 hours SITE ACQUISITION MANAGER palliative determining need recommended dilaudid 0.5mg PRN q15 minutes and re-evaluate the patient every 1-2 hours if he's need more than 3 PRN dose in 2 consecutive hour, than can begin morphine drip agitation, okay to provide PRN ativan 0.5mg IV push q 4hours schedule rubinol TID diet limited appetite but may has tray for pleasure Admission and Anticipated Discharge Date Admission Date: February 03, 2025 Subjective he's needed higher level of pain regime palliative care evaluating if he does not meet GIP critiera, than will look into facility that can performed hospice care Physical Exam Physical Exam: VITALS: Reviewed. GEN: chronically ill appearing neuro: in pain, cannot follow complex command skin: warm to touch -Head: NC/AT; CV: RRR, no m/r/g. LUNGS: CTAB, no w/r/c. no respiratory distress ABD: Soft, NT/ND, NBS, no masses or organomegaly. extremity: warm to touch PG Care Time/CCT Total # of Minutes Spent Total Time Spent with Patient: Total time spent is greater than 50% in coordination of care (as documented) at patient's floor/unit and/or counseling patient: Coding Level of Care Code 91034 SUB INP/OBS CARE 1/25MIN Diagnoses End of life care Z51.5 Cancer related pain G89.3 Time Spent (min) 15
--- NOTE | 2025-02-07 10:22 | Palliative Care Progress Note ---
Date of Service February 07, 2025 Assessment & Plan (1) Palliative care by specialist: Plan: Palliative care will continue to follow for ongoing EOL pt care and family support. (2) Comfort measures only status: Plan: pt transitioned to comfort directed care 02/03/2025, he has had minimal PRN use and is pending SNF placement for ongoing hospice care. (3) Need for comfort care: Plan: EOL Symptom management: Pain/dyspnea/tachypnea dilaudid 0.5mg IVP PRN [id number] Consider titratable morphine drip if pt requires >3 PRN doses in under two consecutive hours. Nausea/vomitting zofran 4mg IVP q4h PRN Agitation ativan 0.5mg IVP q4h PRN Hyperactive delirium haldol 5mg IVP q6h PRN Secretions - if repositioning not effective robinul 0.4mg IV q4h PRN atropine SL 3 drops Q1h PRN Nursing care: Discontinue all medications not directed towards comfort. Detether pt from IV tubing, monitor cables, and check vitals once per shift. Please continue HFNC and titrate down as able for patient comfort. Use medications above PRN for dyspnea/tachypnea and do not increase oxygen once titrated down. Assess q1h for pain/dyspnea and treat accordingly. (4) Cancer related pain: Plan: per #3 Plan as above Admission and Anticipated Discharge Date Admission Date: February 03, 2025 Subjective Assessed pt at bedside, []he was transitioned to ACADEMIC SUPPORT SPECIALIST on 02/03/25. Today patient is awake and alert but does not communicate clearly. He responds to any stimuli with moaning and unintelligible speech. He does not follow commands. No visitors were present. Pt continues to moan without stimuli, also noted to be tachypneic RR 24bpm but nonlabored. He does tighten his abdominal muscles on palpation. Encouraged BSRN to frequently assess and medicate as needed for dyspnea, guarding and other nonverbal signs of discomfort. Encouraged that pt's room door be propped open while no visitors present, due to concern for pt's altered mental state preventing him from using call mehta. Review of Systems Review of Systems: Unobtainable due to reduced consciousness Physical Exam Constitutional: well developed, + ill appearing and + altered mental status Pt lyin in bed moaning, does not make attempt to follow commands. Eyes: PERRL, conjunctivae normal, anicteric sclerae Neck: trachea midline, no thyromegaly Respiratory: normal respiratory effort, lungs clear to auscultation Cardiovascular: Rate/Rhythm: regular rate, regular rhythm and + tachycardic Gastrointestinal (Abdomen): Inspection/Auscultation: abdomen normal to inspection and + hypoactive bowel sounds Percussion/Palpation: + guarding abd muscles tighten notably with palpation. Musculoskeletal: HAAS but does not follow commands. Skin: pale, cool to touch Neurologic: Awake and alert, eyes open and tracks but did not follow commands. Moans continuously. Results & Data Vital Signs (Past 12 Hours) Vital Signs O2 Del Method 02/07/25 07:25 Room Air Laboratory Results No further labs or diagnostics in concert with comfort directed care. Diagnostic Findings No further labs or diagnostics in concert with comfort directed care. Medications Administered Current Inpatient Medications Atropine Sulfate (Atropine Sulfate 1% Op Soln 5 Ml Btl) 4 drops SL Q1H PRN PRN Reason: Secretions or pulm congestion Stop: 03/05/25 01:37 Baclofen (Baclofen 10 Mg Tab) 5 mg PO Q8H PRN PRN Reason: Hiccups Stop: 03/05/25 01:37 Chlorpromazine HCl (Chlorpromazine Hcl 25 Mg Tab) 25 mg PO Q6H PRN PRN Reason: Hiccups Stop: 03/05/25 01:37 Glycopyrrolate (Glycopyrrolate 0.2 Mg/Ml Vial) 0.4 mg IV Q4H PRN PRN Reason: Rattling Secretions or Pulm Congestion Stop: 03/05/25 01:37 Last Admin: 02/06/25 19:52 Dose: 0.4 mg Haloperidol (Haloperidol Oral Soln 2 Mg/Ml) 0.5 mg PO Q4H PRN PRN Reason: Nausea &/or Vomiting Stop: 03/05/25 01:37 Hydromorphone HCl (Hydromorphone Inj 0.5 Mg/0.5 Ml Syr) 0.5 mg IV Q30M PRN PRN Reason: Pain, dyspnea to keep RR<20bpm Stop: 02/17/25 01:37 Last Admin: 02/07/25 09:48 Dose: 0.5 mg Hyoscyamine (Hyoscyamine Sulfate 0.125 Mg Tab) 0.125 mg SL Q4H PRN PRN Reason: Secretions or Pulm Congestion Stop: 03/05/25 01:37 Lorazepam (Lorazepam 2 Mg/1 Ml Vial) 0.5 mg IV Q4H PRN PRN Reason: Anxiety/Agitation Stop: 03/05/25 01:37 Last Admin: 02/07/25 10:18 Dose: 0.5 mg Ondansetron HCl (Ondansetron Inj 2 Mg/Ml 2 Ml Vial) 4 mg IV Q4H PRN PRN Reason: Nausea &/or Vomiting Stop: 03/05/25 01:37 Last Admin: 02/05/25 05:31 Dose: 4 mg Pantoprazole Sodium (Pantoprazole 40 Mg Tab) 40 mg PO DAILY ROSY Stop: 03/05/25 08:59 Last Admin: 02/07/25 08:45 Dose: Not Given PG Care Time/CCT Total # of Minutes Spent Total Time Spent with Patient: Total time spent is greater than 50% in coordination of care (as documented) at patient's floor/unit and/or counseling patient: Coding [place] [address] SUB INP/OBS CARE 2/35MIN Patient Type Established History Expanded Problem Focused Exam Expanded Problem Focused Medical Decision Making Moderate Complexity Diagnoses Palliative care by specialist Z51.5 Comfort measures only status Z51.5 Need for comfort care Cancer related pain G89.3
--- NOTE | 2025-02-07 15:03 | Hospitalist Progress Note ---
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 status for IV Dilaudid 0.5 mg every 4 hours on 02/08, the hospice team will assess whether he's can stay at [facility] [address] for inpatient GIP if not, then he can be return to his usp, [place] for hospice care RACK PRODUCTION WORKER hospice team will assess him tomorrow about GI if unable to meet GIP criteria, return to [place] for hospice care need nursing evaluation every 1-2 hours to assess for pain level an begin morhpine drip if he's need more than 3 PRN dose within 2 conseuctive hours deposition either GIP at [facility] [address] versus hospice at [place] agitation, PRN ativan 0.5mg IV push q 4hours schedule rubinol TID diet limited appetite but may has tray for pleasure Admission and Anticipated Discharge Date Admission Date: February 03, 2025 Subjective Hospital team will see him tomorrow They will determine if he meets the GIP criteria if not then he can be discharged back to his usp at otherwise he will have to go back to his usp, and friends updated at bedside Physical Exam Physical Exam: VITALS: Reviewed. WEIGHT/BMI reviewed. GEN: chronically ill appearing NECK: Supple, with no masses. CV: RRR, no m/r/g. LUNGS: congested breaeth sound ABD: Soft, NT/ND, NBS, no masses or organomegaly. : N/A SKIN: Warm, well perfused. No skin rashes or abnormal lesions. MSK: warm to touch EXT: No clubbing, cyanosis, or edema. Neuro: sedated Results & Data Results & Data Vital Signs (Past 12 Hours) Vital Signs O2 Del Method 02/07/25 07:25 Room Air PG Care Time/CCT Total # of Minutes Spent Total Time Spent with Patient: Total time spent is greater than 50% in coordination of care (as documented) at patient's floor/unit and/or counseling patient: Coding Level of Care Code 60820 SUB INP/OBS CARE 11/12MIN Diagnoses End of life care Z51.5 Cancer related pain G89.3 Time Spent (min) 20
[2025-02-08] MEDS: ATROPINE SULFATE 1% OP SOLN 5 ML BTL SL PRN (03:39)
[2025-02-08] MEDS ORDERED: HYDROmorphone BOLUS from BAG IV PRN (11:24)
[2025-02-08] MEDS ORDERED: STAT IV Infusion **Titration per Protocol STA (11:24)
[2025-02-08] MEDS: HYDROmorphone 100 MG/100 ML BAG IV SCH (12:21)
--- NOTE | 2025-02-08 12:40 | Discharge Summary ---
Discharge Summary Date of Service February 08, 2025 Principal Dx & Hospital Course #1 = Principal Diagnosis (1) End of life care: admission for IV dilaudid pain control (2) Cancer related pain: Plan Patient is a 89-year-old gentleman with bladder stone, urothelial lesion, hypothyroidism On evening of February 02 he came to our hospital for weakness confusion, significant pain, hyponatremia Family request admission for LAWN MOWER status for IV Dilaudid 0.5 mg every 4 hours on 02/08, the hospice team will assess whether he's can stay at [facility] for inpatient GIP if not, then he can be return to his alf, [place] for hospice care [facility] MOWER hospice team will assess him tomorrow about GI if unable to meet GIP criteria, return to [place] for hospice care need nursing evaluation every 1-2 hours to assess for pain level an begin morhpine drip if he's need more than 3 PRN dose within 2 conseuctive hours deposition either GIP at [facility] versus hospice at [place] agitation, PRN ativan 0.5mg IV push q 4hours schedule rubinol TID diet limited appetite but may has tray for pleasure Admission HPI Per Admitting Provider Abraham (Aguilera) Travon is an 89 year old male with recently diagnosed urothelial c arcinoma who presents to the ER with low sodium and fatigue. He was diagnosed with multi organ failure in the ER and wished to be made for comfort care only. Discharge Plan Discharge Items Patient Disposition: Hospice - Medical Facility Reason For Visit: MULTI ORGAN FAILURE, SEPSIS, COMFORT FARE Discharge Diagnosis: pseudomonas bacteremia acute renal faiulre Activity: As commented below Activity Comment: bedrest Non-emergency contact: Primary Care Provider Call non-emergency contact if: your pain is not controlled Follow-up/Referrals: Margot Acevedo, [Primary Care Provider] - Diet: Nothing by [place] Addtl Attending Provider Instructions: Mr Cool is transitioning to inpatient hospice status. Pending Studies at Discharge: No Stand-Alone Forms: My [facility] Skilled Items Patient informed of condition?: No DNR: Yes Discharge Level of Care: Other Communicable Disease: No Discharge Prognosis: Deteriorating Lines: Peripheral IV Urinary Catheter: Yes Medications and DC Order Prescriptions: Discontinued levothyroxine [Synthroid] 50 mcg tablet 50 mcg PO DAILY Qty: 90 3RF phenazopyridine [Pyridium] 200 mg tablet 200 mg PO Q8H PRN (Reason: pain) Qty: 10 0RF alfuzosin [Uroxatral] 10 mg tablet extended release 24 hr 10 mg PO DAILY Qty: 90 3RF Rx Instructions: administer after the same meal each day Xeljanz XR 11 mg tablet extended release 24 hr 11 mg PO DAILY polyethylene glycol 3350 [Miralax] 17 gram/dose powder 17 g PO DAILY Qty: 238 4RF pantoprazole [Protonix] 40 mg tablet,delayed release (DR/EC) 40 mg PO DAILY calcium carbonate-vitamin D3 [Calcium 500 + D] 500 mg-10 mcg (400 unit) Tablet 2 tab PO DAILY acetaminophen 500 mg Tablet 500 mg PO QID acetaminophen 325 mg Tablet 650 mg PO Q4 MDD 3G PRN (Reason: PAIN 1-10 OR FEVER >100.4) acetaminophen 500 mg Tablet 500 mg PO Q4 MDD 3G PRN (Reason: PAIN 1-10 OR FEVER >100.4) Discharge Orders: Discharge Order (Routine); Ordered 02/08/25 Ordered By: Jt Escamilla Admission Data Admit Date/Time: 02/03/25 00:01 Attending Provider: Jt Escamilla Admit Provider: Jt Moya Primary Care Provider: Margot Acevedo Other Providers: Jt Moya; Iveth Kirkpatrick; [facility] Hospital Stay Data Consultations 02/02/25 23:51 ED Decision to Admit Stat 02/06/25 09:34 Consult Palliative Care Routine Diagnostic Imagining Performed 02/02/25 20:33 CT head/brain wo con Stat 02/02/25 20:53 CT abd pelvis wo con Stat Pending Results Patient Have Any Pending Studies at Discharge: No Discharge Instructions Given to Patient (Per Discharging Provider) Mr Cool is transitioning to inpatient hospice status. Coding Diagnoses End of life care Z51.5 Cancer related pain G89.3
== END 2025-02-08 12:43 | disposition hospice, inpatient (51) | DRG 951 ==
LOC: ED 19:34 → SUATTDRO 02-03 00:01 → 3E 02-03 00:01

== ENCOUNTER 2025-02-08 11:57 | Inpatient (IN) ==
[2025-02-08] MEDS ORDERED: BACLOFEN 10 MG TAB PO PRN (12:41)
[2025-02-08] MEDS ORDERED: HYOSCYAMINE SULFATE 0.125 MG TAB SL PRN (12:41)
[2025-02-08] MEDS ORDERED: STAT IV Infusion **Titration per Protocol STA (12:41)
[2025-02-08] MEDS ORDERED: ONDANSETRON INJ 2 MG/ML 2 ML VIAL IV PRN (12:41)
[2025-02-08] MEDS ORDERED: HYDROmorphone BOLUS from BAG IV PRN (12:41)
[2025-02-08] MEDS ORDERED: HALOPERIDOL ORAL SOLN 2 MG/ML PO PRN (12:41)
--- NOTE | 2025-02-08 12:41 | History & Physical Report ---
Date of Service February 08, 2025 Assessment & Plan (1) Admission for hospice care: Plan: 89yo male with recently diagnosed high-grade urothelial cancer - admitted to [facility] on 02/03/25 after presenting with lethargy/fatigue/weakness/metabolic encephalopathy due to pseudomonas bacteremia, severe acute renal failure with Cr of nearly 9, severe hyponatremia with Na level 117, & abnormal LFTs. From 02/03/25 to today he was on a comfort care pathway with focus on pain relief. Andrae Braun palliative care team was instrumental with his medication management. Today, 02/08, patient was evaluated by [facility] for consideration of inpatient hospice status. Patient is now being readmitted for end of life care / inpatient hospice status with focus on comfort/pain relief. * [facility] nurse recommends the following - * dilaudid continuous infusion starting at 0.5mg/hr; titrate as needed * demands/boluses of 0.5mg IV q30 minutes prn * other comfort meds ordered including baclofen prn, glycopyrrolate prn, haldol prn, ativan IV prn, zofran IV prn, and atropine drops/hyoscyamine prn * vitals, labs, etc have been d/c * survey statistician consult * courtesy carts for family * support given to pt's & pt's [id number] at bedside Anticipate pt's passing in the next 2-3 days. (2) End of life care: (3) Comfort measures only status: (4) Acute hyponatremia: (5) LIOR (acute kidney injury): (6) Urothelial carcinoma: (7) Pseudomonal bacteremia: (8) Cancer related pain: (9) Bladder stone: (10) Hypothyroidism: (11) Hypercholesterolemia: (12) Acid reflux disease: (13) Rheumatoid arthritis: (14) BPH (benign prostatic hyperplasia): (15) Chronic kidney disease, stage IV (severe): (16) Acute metabolic encephalopathy: History of Present Illness Chief Complaint: inpatient hospice status Primary Care Provider: Margot Acevedo, 89yo male with recently diagnosed urothelial cancer s/p cystoscopy, bilateral retrograde pyelogram, bilateral ureteral stent placement, Laser Cystolitholapaxy of large bladder stone, urethral dilation due to meatal stricture, right ureteral dilation, right ureteroscopy, ureteral tumor biopsy, right ureteral tumor ablation, and right ureteral tumor laser excision on 01/19/[address] Faustino Rahman - [facility]. Biopsies ultimately returned positive for high-grade urothelial cancer. On 02/02 he presented to the [facility] ER with fatigue, lethargy, and back pain. Serum Na level was 117. He had evidence of severe acute renal failure with creatinine of 8.9 (baseline 2 to 2.2) as well as abnormal LFTs & hyperbilirubinemia. Severe leukocytosis was also seen with WBCs >30. After discussions with the patient & his a decision was made NOT to treat aggressively and transition to a comfort care pathway. He was formally admitted early in the AM of 02/03. Shortly after admission blood cultures returned positive for pseudomonas. During his stay the focus was on pain control and palliative care was consulted for assistance with such. On 02/08 hospice was consulted for consideration of inpatient hospice status given the magnitude of agitation as well as suspected ongoing pain despite regular use of IV dilaudid. Hospice did approve inpatient hospice status. Thus, at the time of this H/P, Mr Cool is being readmitted for inpatient hospice status/end-of-life care. Allergies Allergy/AdvReac Type Severity Reaction Status Date / Time adhesive AdvReac skin tear Verified 01/31/25 14:22 Home Medications Medication Instructions Recorded Confirmed Type tofacitinib 11 mg tablet,extended 11 mg PO DAILY 04/08/23 02/02/25 History release 24 hr (Xeljanz XR) alfuzosin 10 mg tablet,extended 10 mg PO DAILY #90 tabs 04/13/24 02/02/25 Rx release 24 hr (Uroxatral) levothyroxine 50 mcg tablet 50 mcg PO DAILY #90 tabs 08/15/24 02/02/25 Rx (Synthroid) pantoprazole 40 mg tablet,delayed 40 mg PO DAILY 01/19/25 02/02/25 History release (Protonix) phenazopyridine 200 mg tablet 200 mg PO Q8H PRN pain #10 tabs 01/25/25 02/02/25 Rx (Pyridium) polyethylene glycol 3350 17 17 g PO DAILY #238 grams 01/31/25 02/02/25 Rx gram/dose oral powder (Miralax) acetaminophen 325 mg tablet 650 mg PO Q4 PRN PAIN 1-10 OR 02/02/25 02/02/25 History FEVER >100.4 acetaminophen 500 mg tablet 500 mg PO Q4 PRN PAIN 1-10 OR 02/02/25 02/02/25 History FEVER >100.4 acetaminophen 500 mg tablet 500 mg PO QID 3G 02/02/25 02/02/25 History calcium 500 mg (as 2 tab PO DAILY 02/02/25 02/02/25 History carbonate)-vitamin D3 10 mcg (400 unit) tablet (Calcium 500 + D) Past Med/Surg History Problem List (Updated 02/09/25 @ 01:39 by Jt Escamilla MD) Acute metabolic encephalopathy Chronic kidney disease, stage IV (severe) Admission for hospice care Pseudomonal bacteremia Need for comfort care Palliative care by specialist Cancer related pain End of life care Hyponatremia Acute hyponatremia (Acute) Comfort measures only status Gait instability Immunosuppression due to drug therapy Constipation Mobitz type 1 second degree AV block Urothelial lesion (Acute) Hydronephrosis (Acute) LIOR (acute kidney injury) (Acute) 10/2024 [facility] admission 12/10 bladder/kidney stone; creatinine remains elevated from baseline Adenomatous colon polyp BPH with obstruction/lower urinary tract symptoms (Chronic) Vitamin D deficiency (Chronic) Supraventricular tachycardia (Chronic) no recurrence since 2006 ablation Osteoporosis, senile (Chronic) Hypothyroidism (Chronic) Hypercholesterolemia (Chronic) Esophageal stricture (Chronic) Acid reflux disease (Chronic) Basal cell carcinoma (BCC) (Acute) Rheumatoid arthritis (Acute) Medical History (Updated 02/09/25 @ 01:39 by Jt Escamilla MD) LIOR (acute kidney injury) Urothelial carcinoma Bladder stone Encounter for pre-operative examination History of blood transfusion during diverticular episode [facility] > 2-3 years ago - unknown etiology Osteoarthritis as per patient Dysphagia "I have to be really careful with what I eat. Meat is usually the worst" as per patient History of esophageal dilatation Diverticular disease 2-3 years ago - [facility] Hospitalization - required blood transfusion - patient unsure of etiology for needing blood - no issues since Acute kidney injury superimposed on CKD creat remains elevated 2/ bladder stone CKD stage 3a, GFR 45-59 ml/min follows with [facility]; baseline creat 1.3-1.4mg/dl History of anesthesia reaction states hx of issues w/ hypotension Hx of influenza 12/02/24; tx with tamiflu Near syncope 12/02/24- was positive for flu, no issues since Hx of hypercholesterolemia Hx of basal cell carcinoma Acid reflux disease History of esophageal stricture Hypothyroidism Hx of supraventricular tachycardia AVNRT s/p RF ablation 2006; follows w/ Dr Mendez; no recurrence since ablation Rheumatoid arthritis History of colon polyps BPH (benign prostatic hyperplasia) Bladder stone Hydronephrosis, right HX Surgical History (Updated 02/09/25 @ 01:29 by Jt Escamilla MD) S/P cystoscopy with ureteral stent placement 01/19/25 Hx of basal cell carcinoma excision multiple sites History of esophagogastroduodenoscopy (EGD) S/P cholecystectomy S/P colonoscopy 08/15/2021 H/O cardiac radiofrequency ablation 2006 RF ablation for AVNRT Family History Mother Cancer Father Cirrhosis Denies family history of Ovarian cancer Prostate cancer Myocardial infarction Breast cancer Colorectal cancer Social History Smoking Status: Unknown if ever smoked Tobacco Type: Cigarettes Age Started Using Tobacco: 24; Age Quit Using Tobacco: 27; packs per day: 3; Second Hand Exposure: No; Do You Dip or Chew Tobacco: No; Tobacco Cessation Education Requested by Patient: No Hx Alcohol Use: No Hx Substance Use: No Preferred Language: Faroese Communication Ability: Effective Visual Impairment: No Limitations Hearing Ability: Normal Vendor Representatives Required: No Beliefs That Will Affect Care: None marital status: Current Living Situation: Spouse Current Living Situation Comment: comfort care current occupational status: 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 How many Children do You have: 1 Other Information That Helps Us Care for You: No Feels Safe at Home: Yes Safety Concerns: Feels Safe At This Time Childhood Exposure to Second-Hand Smoke: No Diet: regular caffeine: Yes during the past year weight has: remained stable Dental Care, Regularly: No Physical Activity Frequency: Does not Exercise Seatbelt Use: always Sunscreen Use: No Do you think of yourself as: straight/heterosexual Gender Identity: Male Assistive Devices: Walker Review of Systems Review of Systems: Unobtainable due to cognitive status and Unobtainable due to reduced consciousness Physical Exam Physical Exam: gen - obtunded, but moves around in bed as if in pain or agitated mouth - severely dry MM neck - no JVD heart - RRR, s1 s2 lungs - course BS b/l, irregular breathing with hypopneas abd - soft, BS+, NT ext - cool feet to touch, pulses 1+ b/l feet at best, no edema psych - only responds to pain/touch; does not respond to voice or name being called Code Status & VTE Plan Code Status DNR/DNI PG Care Time/CCT Total # of Minutes Spent Total Time Spent with Patient: Total time spent is greater than 50% in coordination of care (as documented) at patient's floor/unit and/or counseling patient: Coding Level of Care Code None Diagnoses Admission for hospice care Z51.5 End of life care Z51.5 Comfort measures only status Z51.5 Acute hyponatremia E87.1 LIOR (acute kidney injury) N17.9 Urothelial carcinoma C68.9 Pseudomonal bacteremia R78.81; B96.5 Cancer related pain G89.3 Bladder stone N21.0 Acquired hypothyroidism E03.9 Hypothyroidism type: acquired Hypercholesterolemia E78.00 Acid reflux disease K21.9 Rheumatoid arthritis M06.9 BPH (benign prostatic hyperplasia) N40.0 Chronic kidney disease, stage IV (severe) N18.4 Acute metabolic encephalopathy G93.41 (10) Hypothyroidism Hypothyroidism type: acquired Qualified Code(s): E03.9 - Hypothyroidism, unspecified
[2025-02-08] MEDS: HYDROmorphone 100 MG/100 ML BAG IV SCH (13:23)
[2025-02-08] MEDS: ATROPINE SULFATE 1% OP SOLN 5 ML BTL SL PRN (18:13)
[2025-02-08] MEDS: GLYCOPYRROLATE 0.2 MG/ML VIAL IV PRN (19:55)
[2025-02-09] MEDS: LORazepam 2 MG/1 ML VIAL IV PRN (02:19)
--- NOTE | 2025-02-09 06:03 | Death Pronouncement Note ---
Date of Service February 09, 2025 Pronouncement Note Admission Date Admission Date: February 08, 2025 Contributing Factors (1) Admission for hospice care: (2) End of life care: (3) Comfort measures only status: (4) Acute hyponatremia: (5) LIOR (acute kidney injury): (6) Urothelial carcinoma: (7) Pseudomonal bacteremia: (8) Cancer related pain: (9) Bladder stone: (10) Hypothyroidism: (11) Hypercholesterolemia: (12) Acid reflux disease: (13) Rheumatoid arthritis: (14) BPH (benign prostatic hyperplasia): (15) Chronic kidney disease, stage IV (severe): (16) Acute metabolic encephalopathy: Hospital Course Hospital Course: I was called to pronounce the of Abraham Cool : 1935 by nursing on 02/09/2025 Upon entering the room, the patient was found to be in a terminal state. Patient was unresponsive to verbal and tactile stimuli. Patient unresponsive to corneal and pupillary reflexes. On cardiopulmonary exam, no carotid or radial pulses found and pt without spontaneous heart tones or respirations. Time of was pronounced by me on 02/09/2025 at 0556 Attending physician was notified. Next of kin was notified by nursing Additional Data Attending physician: Jt Escamilla MD Resident Activity Tracking Resident Involvement: Resident Care Provided Care Provided: Adult Hospital Medicine
--- NOTE | 2025-02-09 07:47 | Discharge Summary ---
Discharge Summary Date of Service February 09, 2025 Principal Dx & Hospital Course #1 = Principal Diagnosis (1) Admission for hospice care: 89yo male with recently diagnosed high-grade urothelial cancer - admitted to [facility] on 02/03/25 after presenting with lethargy/fatigue/weakness/metabolic encephalopathy due to pseudomonas bacteremia, severe acute renal failure with Cr of nearly 9, severe hyponatremia with Na level 117, & abnormal LFTs. From 02/03/25 to today he was on a comfort care pathway with focus on pain relief. Andrae Braun palliative care team was instrumental with his medication management. Today, 02/08, patient was evaluated by [facility] for consideration of inpatient hospice status. Patient is now being readmitted for end of life care / inpatient hospice status with focus on comfort/pain relief. * [facility] nurse recommends the following - * dilaudid continuous infusion starting at 0.5mg/hr; titrate as needed * demands/boluses of 0.5mg IV q30 minutes prn * other comfort meds ordered including baclofen prn, glycopyrrolate prn, haldol prn, ativan IV prn, zofran IV prn, and atropine drops/hyoscyamine prn * vitals, labs, etc have been d/c * custodian consult * courtesy carts for family * support given to pt's & pt's [id number] at bedside Anticipate pt's passing in the next 2-3 days. (2) End of life care: (3) Comfort measures only status: (4) Acute hyponatremia: (5) LIOR (acute kidney injury): (6) Urothelial carcinoma: (7) Pseudomonal bacteremia: (8) Cancer related pain: (9) Bladder stone: (10) Hypothyroidism: (11) Hypercholesterolemia: (12) Acid reflux disease: (13) Rheumatoid arthritis: (14) BPH (benign prostatic hyperplasia): (15) Chronic kidney disease, stage IV (severe): (16) Acute metabolic encephalopathy: Admission HPI Per Admitting Provider 89yo male with recently diagnosed urothelial cancer s/p cystoscopy, bilateral retrograde pyelogram, bilateral ureteral stent placement, Laser Cystolitholapaxy of large bladder stone, 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 Biopsies ultimately returned positive for high-grade urothelial cancer. On 02/02 he presented to the [facility] ER with fatigue, lethargy, and back pain. Serum Na level was 117. He had evidence of severe acute renal failure with creatinine of 8.9 (baseline 2 to 2.2) as well as abnormal LFTs & hyperbilirubinemia. Severe leukocytosis was also seen with WBCs >30. After discussions with the patient & his a decision was made NOT to treat aggressively and transition to a comfort care pathway. He was formally admitted early in the AM of 02/03. Shortly after admission blood cultures returned positive for pseudomonas. During his stay the focus was on pain control and palliative care was consulted for assistance with such. On 02/08 hospice was consulted for consideration of inpatient hospice status given the magnitude of agitation as well as suspected ongoing pain despite regular use of IV dilaudid. Hospice did approve inpatient hospice status. Thus, at the time of this H/P, Mr Cool is being readmitted for inpatient hospice status/end-of-life care. Discharge Plan Discharge Items Patient Disposition: Other Date/Time: 02/09/25 05:56 Coding Diagnoses Admission for hospice care Z51.5 End of life care Z51.5 Comfort measures only status Z51.5 Acute hyponatremia E87.1 LIOR (acute kidney injury) N17.9 Urothelial carcinoma C68.9 Pseudomonal bacteremia R78.81; B96.5 Cancer related pain G89.3 Bladder stone N21.0 Acquired hypothyroidism E03.9 Hypothyroidism type: acquired Hypercholesterolemia E78.00 Acid reflux disease K21.9 Rheumatoid arthritis M06.9 BPH (benign prostatic hyperplasia) N40.0 Chronic kidney disease, stage IV (severe) N18.4 Acute metabolic encephalopathy G93.41
== END 2025-02-09 11:00 | disposition expired | DRG 951 ==
LOC: 3E 12:41 → SUATTDRO 12:41
DX: G93.41 Metabolic encephalopathy; N17.9 Acute kidney failure, unspecified; E87.1 Hypo-osmolality and hyponatremia; Z79.622 Long term (current) use of Janus kinase inhibitor; C68.9 Malignant neoplasm of urinary organ, unspecified; D84.821 Immunodeficiency due to drugs; E03.9 Hypothyroidism, unspecified; Z66 Do not resuscitate; Z91.048 Other nonmedicinal substance allergy status; R65.20 Severe sepsis without septic shock; Z79.899 Other long term (current) drug therapy; A41.52 Sepsis due to Pseudomonas; K21.9 Gastro-esophageal reflux disease without esophagitis; Z51.5 Encounter for palliative care; N40.0 Benign prostatic hyperplasia without lower urinary tract symptoms; N18.4 Chronic kidney disease, stage 4 (severe); N21.0 Calculus in bladder; M06.9 Rheumatoid arthritis, unspecified; Z79.890 Hormone replacement therapy; E78.00 Pure hypercholesterolemia, unspecified; G89.3 Neoplasm related pain (acute) (chronic)